=== PATIENT | male | born 1945 | race Caucasian/White ===

== ENCOUNTER 2017-05-17 08:55 | Emergency (ER) | payer MEDICAID, MEDICARE ==
[~2017-05-17] VITALS: Ht 180.3 cm; Wt 90.9 kg
[2017-05-17 08:55] VITALS: BP 121/74; PULSE 85; RESP 18; TEMP 98.4; O2SAT 98
[~2017-05-17 08:55] MED LIST: AMLO5 PO; LISI20 PO; NORC7.5T PO; POTA20IN3 PO
[2017-05-17] MEDS ORDERED: AMLO2.5T PO (08:59)
--- NOTE | 2017-05-17 09:24 | PD ---
HPI Chief Complaint: Pain: Acute or Chronic Time Seen by Provider: 09:02 Travel History International Travel<30 days: No Contact w/Intl Traveler<30days: No Traveled to known affect area: No History of Present Illness HPI This patient called paramedics to bring him in for back pain. He's had chronic back pain for 5 years. He's had an MRI told by his primary physician that is nothing much they can do but give him pain medicine. He takes hydrocodone 3 times a day for pain management physician. Patient reports that he drinks at least 6 alcoholic drinks daily and was drinking this morning prior to him calling 911. No fall or injury or fever. He reports that he gets around at home with a walker. He was in rehabilitation up to 7 months ago. He says he would refuse to go to assisted living or fpc or rehabilitation facility. Symptoms severity is moderate. No alleviating factors. Duration of pain is daily for 5 years. He denies any neurologic change. He spends a lot of time lying in bed. PFSH Past Medical History Arthritis: Yes Autoimmune Disease: No Anxiety: No Depression: No Cancer: No Cardiovascular Problems: Yes Cerebrovascular Accident: No Endocrine: No Hepatitis: No Hiatal Hernia: No Hypertension: Yes Immune Disorder: No Implanted Vascular Access Dvce: Yes Musculoskeletal: Yes (Arthritis ) Neurologic: Yes (TIA) Psychiatric: No Reproductive: No Respiratory: No Migraines: No Seizures: No Tetanus Vaccination: < 5 Years Influenza Vaccination: Yes Past Surgical History Abdominal Surgery: No AICD: No Cardiac Surgery: No Ear Surgery: No Endocrine Surgery: No Eye Surgery: No Genitourinary Surgery: No Gynecologic Surgery: No Joint Replacement: Yes (BL knees) Oral Surgery: No Pacemaker: No Thoracic Surgery: No Other Surgery: Yes (Lt. hip ) Social History Alcohol Use: Yes (Vodka daily, drank this morning) Tobacco Use: No Substance Use: No Allergies-Medications (Allergen,Severity, Reaction): Coded Allergies: No Known Allergies (Verified , 05/17/17) Reported Meds & Prescriptions Reported Meds & Active Scripts Active Reported Amlodipine (Amlodipine Besylate) 2.5 Mg Tab 2.5 Mg PO DAILY Review of Systems General / Constitutional: No: Fever Eyes: No: Visual changes HENT: No: Headaches Cardiovascular: Positive: Edema, No: Chest Pain or Discomfort Respiratory: No: Shortness of Breath Gastrointestinal: No: Abdominal Pain Genitourinary: No: Dysuria Musculoskeletal: Positive: Edema, Pain Skin: Positive Rash Neurologic: No: Weakness Psychiatric: Positive: Substance Abuse, No: Depression Endocrine: No: Polydipsia Hematologic/Lymphatic: No: Easy Bruising Physical Exam Narrative GENERAL: Disheveled well-developed patient in no apparent distress. SKIN: Focused skin assessment reveals macular erythema to the scrotum. Skin is Warm and dry. Has some macular erythema in the sacrum, I think irritation from lying in urine but possibly stage I decub HEAD: Atraumatic. Normocephalic. EYES: Pupils equal and round. No scleral icterus. No injection or drainage. ENT: No nasal bleeding or discharge. Mucous membranes pink and moist. NECK: Trachea midline. No JVD. CARDIOVASCULAR: Regular rate and rhythm. No murmur appreciated. RESPIRATORY: No accessory muscle use. Clear to auscultation. Breath sounds equal bilaterally. GASTROINTESTINAL: Abdomen soft, non-tender, nondistended. Hepatic and splenic margins not palpable. MUSCULOSKELETAL: No obvious deformities. No clubbing. No cyanosis. Symmetric edema the feet and lower legs. NEUROLOGICAL: Awake and alert. No obvious cranial nerve deficits. Motor grossly within normal limits. Normal speech. PSYCHIATRIC: Appropriate mood and affect; insight and judgment poor. Data Data Last Documented VS Vital Signs Date Time Temp Pulse Resp B/P Pulse Ox O2 Delivery O2 Flow Rate FiO2 05/17/17 08:55 98.4 85 18 121/74 98 Orders Iv Access Insert/Monitor (05/17/17 09:19) Complete Blood Count With Diff (05/17/17 09:19) Comprehensive Metabolic Panel (05/17/17 09:24) Alcohol (Ethanol) (05/17/17 09:24) Creatine Kinase (Cpk) (05/17/17 09:24) Labs Laboratory Tests Test 05/17/17 09:20 White Blood Count 13.3 TH/MM3 Red Blood Count 4.64 MIL/MM3 Hemoglobin 14.4 GM/DL Hematocrit 45.0 % Mean Corpuscular Volume 96.9 FL Mean Corpuscular Hemoglobin 31.1 PG Mean Corpuscular Hemoglobin 32.1 % Concent Red Cell Distribution Width 13.0 % Platelet Count 240 TH/MM3 Mean Platelet Volume 8.2 FL Neutrophils (%) (Auto) 77.9 % Lymphocytes (%) (Auto) 8.5 % Monocytes (%) (Auto) 9.6 % Eosinophils (%) (Auto) 0.7 % Basophils (%) (Auto) 3.3 % Neutrophils # (Auto) 10.4 TH/MM3 Lymphocytes # (Auto) 1.1 TH/MM3 Monocytes # (Auto) 1.3 TH/MM3 Eosinophils # (Auto) 0.1 TH/MM3 Basophils # (Auto) 0.4 TH/MM3 CBC Comment AUTO DIFF Differential Comment AUTO DIFF CONFIRMED Sodium Level 130 MEQ/L Potassium Level 3.2 MEQ/L Chloride Level 91 MEQ/L Carbon Dioxide Level 21.2 MEQ/L Anion Gap 18 MEQ/L Blood Urea Nitrogen 26 MG/DL Creatinine 1.10 MG/DL Estimat Glomerular Filtration 65 ML/MIN Rate Random Glucose 92 MG/DL Calcium Level 9.1 MG/DL Total Bilirubin 2.0 MG/DL Aspartate Amino Transf 35 U/L (AST/SGOT) Alanine Aminotransferase 32 U/L (ALT/SGPT) Alkaline Phosphatase 101 U/L Total Creatine Kinase 189 U/L Total Protein 7.8 GM/DL Albumin 3.1 GM/DL Ethyl Alcohol Level 90 MG/DL [facility] Medical Decision Making Medical Screen Exam Complete: Yes Emergency Medical Condition: Yes Medical Record Reviewed: Yes Differential Diagnosis Rhabdomyolysis, alcoholism, exacerbation of chronic back pain Narrative Course I have reviewed the patient's electronic medical record. IV placed CBC shows minor leukocytosis which is nonspecific Metabolic profile shows some hyponatremia and hypokalemia. Creatinine is normal LFTs are normal other than bilirubin minor elevation Alcohol level is 90 suggesting acute intoxication Patient does not have any neurologic deficit. He's had this level of back pain for 5 years now and had an MRI and sees a physician but can't recall his primary physician's name. Patient abuses alcohol daily. He refuses placement. I observed him ambulate in the department with a walker and he did fairly well Wrote him a nystatin prescription for his scrotum and discussed how he needs to be up and out of bed and keep pressure off the sacrum hygiene measures discussed As noted he refuses any discussion of placement Follow-up with his primary physician and quit his alcohol abuse Diagnosis Primary Impression: Acute exacerbation of chronic low back pain Additional Impressions: Alcohol intoxication Qualified Code: F10.920 - Alcohol intoxication, uncomplicated Hypokalemia Rash Additional Instructions: The patient was advised to follow up with their physician and return if they worsen. Elevate legs Use walker at all times Stop abusing alcohol Med/Other Pt SpecificInfo: Prescription(s) given Scripts Potassium Chloride ER (K-Tab)20 Meq Tab40 Meq PO ONCE #2 TAB Ref 0 Prov:Preston Kramer MD 05/17/17 Nystatin Topical 100,000 unit/gm Cream1 Applic TOPICAL BID #30 GM Ref 0 Prov:Preston Kramer MD 05/17/17 Disposition: 01 DISCHARGE HOME Condition: Stable Preston Kramer MD May 17, 2017 09:24
[2017-05-17 09:31] LABS: AUTOMATED NEUTROPHIL # 10.4 TH/MM3 (1.8-7.7); BASOPHIL # 0.4 TH/MM3 (0-0.2); BASOPHIL % 3.3 % (0.0-2.0); EOSINOPHIL # 0.1 TH/MM3 (0-0.4); EOSINOPHIL % 0.7 % (0.0-4.0); HEMO FLAGS AUTO DIFF; LYMPH % 8.5 % (9.0-44.0); LYMPHOCYTE # 1.1 TH/MM3 (1.0-4.8); MEAN CELL VOLUME 96.9 FL (80.0-100.0); MEAN CORPUSCULAR HEMOGLOBIN 31.1 PG (27.0-34.0); MEAN CORPUSCULAR HGB CONC 32.1 % (32.0-36.0); MONO % 9.6 % (0.0-8.0); NEUT % 77.9 % (16.0-70.0); PLATELET COUNT 240 TH/MM3 (150-450); RED BLOOD COUNT 4.64 MIL/MM3 (4.50-5.90); WHITE BLOOD COUNT 13.3 TH/MM3 (4.0-11.0)
[2017-05-17 09:51] LABS: SCAN/DIFF AUTO DIFF CONFIRMED
[2017-05-17 09:56] LABS: CHLORIDE 91 MEQ/L (98-107); POTASSIUM 3.2 MEQ/L (3.5-5.1); SODIUM (NA) 130 MEQ/L (136-145)
[2017-05-17 09:57] LABS: ALT (GPT) 32 U/L (12-78)
[2017-05-17 09:58] LABS: AST (GOT) 35 U/L (15-37); GLOMERULAR FILTRATION RATE 65 ML/MIN (>89)
[2017-05-17 10:00] LABS: ALKALINE PHOSPHATASE 101 U/L (45-117); CREATINE KINASE 189 U/L (39-308)
[2017-05-17 10:02] LABS: ANION GAP 18 MEQ/L (5-15); BICARBONATE 21.2 MEQ/L (21.0-32.0); BLOOD UREA NITROGEN 26 MG/DL (7-18)
[2017-05-17] MEDS ORDERED: NYST15T TOPICAL (10:51)
[2017-05-17] MEDS ORDERED: POTA1TAB4 PO (10:51)
[2017-05-17 11:05] VITALS: BP 121/79; PULSE 78; RESP 16; O2SAT 98
== END 2017-05-17 11:55 | disposition home or self-care (01) ==
LOC: PHED 08:55
DX: M54.5 Low back pain (principal); G89.29 Other chronic pain; E87.6 Hypokalemia; R21 Rash and other nonspecific skin eruption; I10 Essential (primary) hypertension; F10.120 Alcohol abuse with intoxication, uncomplicated; Y90.4 Blood alcohol level of 80-99 mg/100 ml
CPT/HCPCS: 80053; 80307; 82550; 85025; 99283

== ENCOUNTER 2017-07-28 18:47 | Inpatient (IN) | payer MEDICARE, MEDICAID ==
[~2017-07-28] VITALS: Ht 180.3 cm; Wt 93.1 kg
[~2017-07-28 18:47] MED LIST changes: +AMLO2.5T PO; -AMLO5 PO; -LISI20 PO; -NORC7.5T PO; +NYST15T TOPICAL; +POTA1TAB4 PO; -POTA20IN3 PO
[2017-07-28 18:59] VITALS: BP 160/84; PULSE 119; RESP 18; TEMP 100.7; O2SAT 95
[2017-07-28] MEDS ORDERED: VANCOMYCIN INJ 1,000 MG in SODIUM CHLOR 0.9% 250 ML INJ 250 ML IV STA (19:11)
[2017-07-28] MEDS ORDERED: CEFEPIME INJ 2,000 MG in SODIUM CHLORIDE 0.9% INJ 100 ML IV STA (19:11)
[2017-07-28] MEDS ORDERED: ACETAMINOPHEN 325 MG TAB PO ONE (19:15)
[2017-07-28] MEDS ORDERED: SODIUM CHLOR 0.9% 1000 ML INJ 1,000 ML IV ONE (19:15)
--- NOTE | 2017-07-28 19:21 | PD ---
HPI Chief Complaint: Edema Time Seen by Provider: 19:05 Travel History International Travel<30 days: No Contact w/Intl Traveler<30days: No Traveled to known affect area: No History of Present Illness HPI Patient is a 72 year old male who presents to ER with multiple complaints. Patient reports that for the past 2-3 days, he has not been feeling well. Reports that he has had a productive cough with thick white mucous. Reports that his legs appear swollen. Reports that his girlfriend is sick as well. Denies chest pain/sob. NO documented fever at home. Denies abdominal pain/ nausea or vomiting. Reports only history of HTN. PFSH Past Medical History Arthritis: Yes Autoimmune Disease: No Anxiety: No Depression: No Cancer: No Cardiovascular Problems: Yes Cerebrovascular Accident: Yes (tia) Endocrine: No GERD: Yes Hepatitis: No Hiatal Hernia: No Hypertension: Yes Immune Disorder: No Implanted Vascular Access Dvce: Yes Medical other: Yes (poor historian) Musculoskeletal: Yes (Arthritis ) Neurologic: Yes (TIA) Psychiatric: No Reproductive: No Respiratory: No Migraines: No Pancreatitis: Yes Seizures: No Past Surgical History Abdominal Surgery: No AICD: No Cardiac Surgery: No Ear Surgery: No Endocrine Surgery: No Eye Surgery: No Genitourinary Surgery: No Gynecologic Surgery: No Joint Replacement: Yes (BL knees) Oral Surgery: No Pacemaker: No Thoracic Surgery: No Other Surgery: Yes (Lt. hip ) Social History Alcohol Use: Yes (Vodka daily) Tobacco Use: No Substance Use: Yes (etoh) Allergies-Medications (Allergen,Severity, Reaction): Coded Allergies: No Known Allergies (Verified , 07/28/17) Reported Meds & Prescriptions Reported Meds & Active Scripts Active Reported Amlodipine (Amlodipine Besylate) 2.5 Mg Tab 2.5 Mg PO DAILY Review of Systems ROS Limitations: Altered Mental Status General / Constitutional: Positive: Fever Respiratory: Positive: Cough, Shortness of Breath Physical Exam Narrative GENERAL:moderate distress SKIN: Focused skin assessment warm/dry. HEAD: Atraumatic. Normocephalic. EYES: Pupils equal and round. No scleral icterus. No injection or drainage. ENT: No nasal bleeding or discharge. Mucous membranes pink and moist. NECK: Trachea midline. No JVD. CARDIOVASCULAR: Tachycardic. No murmur appreciated. RESPIRATORY: No accessory muscle use. Clear to auscultation. Breath sounds equal bilaterally. GASTROINTESTINAL: Abdomen soft, non-tender, nondistended. Hepatic and splenic margins not palpable. MUSCULOSKELETAL: No obvious deformities. No clubbing. No cyanosis. +3 lower extremity edema to right lower extremity, +1 lower extremity edema to her left lower extremity NEUROLOGICAL: Awake and alert. No obvious cranial nerve deficits. Motor grossly within normal limits. Normal speech. PSYCHIATRIC: Flat mood and affect Data Data Last Documented VS Vital Signs Date Time Temp Pulse Resp B/P (MAP) Pulse Ox O2 Delivery O2 Flow Rate FiO2 07/28/17 18:59 100.7 119 18 160/84 (109) 95 Orders Orders Complete Blood Count With Diff (07/28/17 19:11) Comprehensive Metabolic Panel (07/28/17 19:11) Prothrombin Time / Inr (Pt) (07/28/17 19:11) Act Partial Throm Time (Ptt) (07/28/17 19:11) Lactic Acid Sepsis Protocol (07/28/17 19:11) Magnesium (Mg) (07/28/17 19:11) Ckmb (Isoenzyme) Profile (07/28/17 19:11) Troponin I (07/28/17 19:11) Urinalysis - C+S If Indicated (07/28/17 19:11) Influenzae A/B Antigen (07/28/17 19:11) Blood Culture (07/28/17 19:11) Chest, Single Ap (07/28/17 19:11) Blood Glucose (07/28/17 19:11) Ecg Monitoring (07/28/17 19:11) Iv Access Insert/Monitor (07/28/17 19:11) Oximetry (07/28/17 19:11) Acetaminophen (Tylenol) (07/28/17 19:15) Vancomycin Inj (Vancomycin Inj) (07/28/17 19:11) Cefepime Inj (Maxipime Inj) (07/28/17 19:11) Sodium Chlor 0.9% 1000 Ml Inj (Ns 1000 M (07/28/17 19:15) Us Leg Venous Doppler Bilat (07/28/17 ) Labs Laboratory Tests Test 07/28/17 19:40 07/28/17 19:45 Prothrombin Time 11.9 SEC Prothromb Time International Ratio 1.1 RATIO Activated Partial Thromboplast Time 28.9 SEC Blood Urea Nitrogen 14 MG/DL Creatinine 1.15 MG/DL Random Glucose 119 MG/DL Total Protein 7.8 GM/DL Albumin 2.9 GM/DL Calcium Level 8.6 MG/DL Magnesium Level 1.5 MG/DL Alkaline Phosphatase 123 U/L Aspartate Amino Transf (AST/SGOT) 20 U/L Alanine Aminotransferase (ALT/SGPT) 20 U/L Total Bilirubin 2.2 MG/DL Sodium Level 135 MEQ/L Potassium Level 3.3 MEQ/L Chloride Level 102 MEQ/L Carbon Dioxide Level 20.9 MEQ/L Anion Gap 12 MEQ/L Estimat Glomerular Filtration Rate 62 ML/MIN Total Creatine Kinase 74 U/L Troponin I LESS THAN 0.02 NG/ML White Blood Count 18.9 TH/MM3 Red Blood Count 4.13 MIL/MM3 Hemoglobin 14.0 GM/DL Hematocrit 41.6 % Mean Corpuscular Volume 100.8 FL Mean Corpuscular Hemoglobin 34.0 PG Mean Corpuscular Hemoglobin Concent 33.7 % Red Cell Distribution Width 17.1 % Platelet Count 236 TH/MM3 Mean Platelet Volume 9.4 FL Neutrophils (%) (Auto) 91.0 % Lymphocytes (%) (Auto) 2.7 % Monocytes (%) (Auto) 6.2 % Eosinophils (%) (Auto) 0.0 % Basophils (%) (Auto) 0.1 % Neutrophils # (Auto) 17.2 TH/MM3 Lymphocytes # (Auto) 0.5 TH/MM3 Monocytes # (Auto) 1.2 TH/MM3 Eosinophils # (Auto) 0.0 TH/MM3 Basophils # (Auto) 0.0 TH/MM3 CBC Comment DIFF FINAL Differential Comment Lactic Acid Level 2.0 mmol/L [facility] Medical Decision Making Medical Screen Exam Complete: Yes Emergency Medical Condition: Yes Medical Record Reviewed: Yes Interpretation(s) Vital Signs Date Time Temp Pulse Resp B/P (MAP) Pulse Ox O2 Delivery O2 Flow Rate FiO2 07/28/17 18:59 100.7 119 18 160/84 (109) 95 Differential Diagnosis Differential includes pneumonia, SIRS, PE DVT, ACS, arrythmia, UTI, electrolyte abnormality Narrative Course Patient is a 72-year-old male who presents to emergency room with complaints of cough and congestion as well as swelling to his lower extremities bilaterally for the past 2-3 days. Patient reports only history of hypertension currently taking amlodipine. Patient appears confused at bedside, he is alert to person. He is tachycardic and febrile. Sepsis protocol initiated. Patient was given acetaminophen for fever. Cefepime and Vanco was given empirically for SIRS criteria - Sepsis. Patient was placed on a ekg monitor tech. IVF ordered. BC as well as lactate ordered. CBC & BMP Diagram 07/28/17 19:40 Total Protein 7.8, Albumin 2.9 L, Calcium Level 8.6, Magnesium Level 1.5, Alkaline Phosphatase 123 H, Aspartate Amino Transf (AST/SGOT) 20, Alanine Aminotransferase (ALT/SGPT) 20, Total Bilirubin 2.2 H 07/28/17 19:45 Lactic acid 2.0 X-ray of his chest shows left base atelectasis or consolidation. Patient with a white blood cell count of 18.9 with a left base consolidation, he is also tachycardic with a temperature of 100.7. Patient with sepsis criteria. Patient will require admission to the hospital this time for treatment of pneumonia. Diagnosis Primary Impression: Sepsis Qualified Codes: A41.9 - Sepsis, unspecified organism Additional Impression: Pneumonia Qualified Codes: J18.9 - Pneumonia, unspecified organism Admitting Information Admitting Physician Requests: Admit Anna Rodas DO Jul 28, 2017 19:21
[2017-07-28 20:07] LABS: AUTOMATED NEUTROPHIL # 17.2 TH/MM3 (1.8-7.7); BASOPHIL % 0.1 % (0.0-2.0); HEMATOCRIT 41.6 % (39.0-51.0); HEMO FLAGS DIFF FINAL; LYMPH % 2.7 % (9.0-44.0); LYMPHOCYTE # 0.5 TH/MM3 (1.0-4.8); MEAN CELL VOLUME 100.8 FL (80.0-100.0); MEAN CORPUSCULAR HGB CONC 33.7 % (32.0-36.0); MONO % 6.2 % (0.0-8.0); PLATELET COUNT 236 TH/MM3 (150-450); RED BLOOD COUNT 4.13 MIL/MM3 (4.50-5.90); RED CELL DISTRIBUTION WIDTH 17.1 % (11.6-17.2); WHITE BLOOD COUNT 18.9 TH/MM3 (4.0-11.0)
[2017-07-28 20:16] LABS: APTT (PATIENT) 28.9 SEC (24.3-30.1); INTERNATIONAL NORMALIZED RATIO 1.1 RATIO; PROTHROMBIN TIME - PATIENT 11.9 SEC (9.8-11.6)
[2017-07-28 20:27] LABS: ANION GAP 12 MEQ/L (5-15); AST (GOT) 20 U/L (15-37); BICARBONATE 20.9 MEQ/L (21.0-32.0); BLOOD UREA NITROGEN 14 MG/DL (7-18); CHLORIDE 102 MEQ/L (98-107); GLOMERULAR FILTRATION RATE 62 ML/MIN (>89); MAGNESIUM 1.5 MG/DL (1.5-2.5); POTASSIUM 3.3 MEQ/L (3.5-5.1); SODIUM (NA) 135 MEQ/L (136-145)
--- NOTE | 2017-07-28 20:30 | RADRPT ---
EXAM DATE/TIME: 07/28/2017 19:14 [facility] COMPARISON: No previous studies available for comparison. INDICATIONS : Bilateral leg swelling. MEDICAL HISTORY : Hypertension. Gastroesophageal reflux disease. Neck pain. Glasses. Hearing problem. Transient ischem ic attack. Numbness. Pancreatitis. Arthritis. SURGICAL HISTORY : Total knee replacement, right.Total knee replacement, left. Left hip replacement. ENCOUNTER: Initial ACUITY: 1 day PAIN SCORE: 2/10 LOCATION: Bilateral legs. TECHNIQUE: Venous ultrasound of the left and right leg was performed from the inguinal ligament to the proximal calf. Real-time, color Doppler and spectral tracing, compression and augmentation techniques were us ed. FINDINGS: RIGHT LEG: There is normal compressibility of the deep venous system from the inguinal region to the proximal ca lf. No echogenic clot is seen in the lumen of the common femoral, femoral, popliteal, and posterior tibial veins. There is a normal response of the venous system to proximal and distal augmentation an d respiration. LEFT LEG: There is normal compressibility of the deep venous system from the inguinal region to the proximal ca lf. No echogenic clot is seen in the lumen of the common femoral, femoral, popliteal, and posterior tibial veins. There is a normal response of the venous system to proximal and distal augmentation an d respiration. CONCLUSION: No DVT. Franki Eldridge MD on July 28, 2017 at 20:28 Board Certified Radiologist. This report was verified electronically.
[2017-07-28 20:34] LABS: ALKALINE PHOSPHATASE 123 U/L (45-117); ALT (GPT) 20 U/L (12-78); TOTAL BILIRUBIN ADULT 2.2 MG/DL (0.2-1.0)
[2017-07-28 20:42] LABS: CREATINE KINASE 74 U/L (39-308)
--- NOTE | 2017-07-28 21:03 | RADRPT ---
EXAM DATE/TIME: 07/28/2017 19:54 [facility] COMPARISON: CHEST SINGLE AP, August 26, 2015, 18:43. CHEST SINGLE AP, March 24, 2016, 18:56. INDICATIONS : Cough and congestion. MEDICAL HISTORY : None. SURGICAL HISTORY : None. ENCOUNTER: Initial ACUITY: 4 - 6 days PAIN SCORE: 0/10 LOCATION: chest FINDINGS: The heart size is normal. There is increased density at the left base. There is a focal density in th e right perihilar region likely related to a prominent vessel on end. The right lung is clear. No eff usion is seen. CONCLUSION: 1. Left base atelectasis or consolidation. 2. Nodular areas seen at the inferior lateral right hilar region likely related to a vessel on end. T his could be followed up on future chest x-rays. If this persists, it could be followed up with a CT examination. Franki Eldridge MD on July 28, 2017 at 20:59 Board Certified Radiologist. This report was verified electronically.
[2017-07-28] MEDS ORDERED: POTASSIUM CHLORIDE 10 MEQ CONTROLLED RELEASE TAB PO ONE (22:00)
[2017-07-28] MEDS ORDERED: NALOXONE HCL 0.4 MG/ML AMP IV PUSH PRN (22:30)
[2017-07-28] MEDS ORDERED: SODIUM CHLORIDE 0.9% FLUSH 10 ML FLUSH IV FLUSH PRN (22:30)
--- NOTE | 2017-07-28 23:05 | HHI.HP ---
[facility] Dr. Kyrie Huff . Admission Diagnosis Sepsis, pneumonia Diagnoses: (1) Pneumonia Chief Complaint: cough with mucous production Travel History International Travel<30 Days: No Contact w/Intl Traveler <30 Da: No Traveled to Known Affected Are: No History of Present Illness Written by Amanda Saldana, acting as scribe for Dr. Boyer on 07/28/17 at 23:04. Patient is seen in ED. He states that he came to the hospital for evaluation of productive cough x 3 days with yellow sputum - large amount of sputum production. Reports fever, denies shortness of breath. Denies chest pain or tightness. Denies dysphagia. Reports difficulty eating and taking pills because his throat is full of phlegm ; no problems swallowing prior to excessive mucous production Peripheral edema: chronic with no recent in crease in edema. Denies abdominal pain, diarrhea, nausea, vomiting, dysuria, hematuria, black or bloody stool. During visit, the patient was coughing up and expectorating a large amount of yellow sputum and his upper airway sounded congested. Review of Systems Except as stated in HPI: all other systems reviewed are Neg Past Family Social History Past Medical History Hypertension CVA Denies DM, CAD, CHF, atrial fibrillation, COPD, emphysema, asthma, liver problems, kidney problems, DVT, PE, seizures, thyroid problems, or cancers . Past Surgical History Carotid endarterectomy Bilateral knee replacement Left hip replacement . Reported Medications Reported Meds & Active Scripts Active Reported Amlodipine (Amlodipine Besylate) 2.5 Mg Tab 2.5 Mg PO DAILY . Allergies: Coded Allergies: No Known Allergies (Verified , 07/28/17) Active Ordered Medications Current Medications Acetaminophen (Tylenol) 650 mg ONCE ONCE PO Last administered on 07/28/17 20: 41; Start 07/28/17 at 19:15; Stop 07/28/17 at 19:16; Status DC Vancomycin HCl 1000 mg/Sodium Chloride 250 ml @ 250 mls/hr ONCE STAT IV Last administered on 07/28/17 20:41; Start 07/28/17 at 19:11; Stop 07/28/17 at 20:10 ; Status DC Cefepime HCl 2000 mg/Sodium Chloride 100 ml @ 200 mls/hr ONCE STAT IV Last administered on 07/28/17 22:17; Start 07/28/17 at 19:11; Stop 07/28/17 at 19:40 ; Status DC Sodium Chloride 1,000 ml @ 999 mls/hr BOLUS ONCE IV Last administered on 07/28 20:41; Start 07/28/17 at 19:15; Stop 07/28/17 at 20:15; Status DC Potassium Chloride (KCl) 30 meq ONCE ONCE PO Last administered on 07/28/17 22 :18; Start 07/28/17 at 22:00; Stop 07/28/17 at 22:01; Status DC Sodium Chloride (NS Flush) 2 ml UNSCH PRN IV FLUSH FLUSH AFTER USING IV ACCESS ; Start 07/28/17 at 22:30 Sodium Chloride (NS Flush) 2 ml BID IV FLUSH ; Start 07/29/17 at 09:00 Naloxone HCl (Narcan Inj) 0.4 mg UNSCH PRN IV PUSH SEE LABEL COMMENTS; Start 07/28/17 at 22:30 . Family History Mother with hypertension Father is alive in his 90's . Social History Tobacco: quit smoking about one year ago Alcohol: drinks 3 - 4 shots of vodka per day Illicit Drugs: denies . Physical Exam Vital Signs Vital Signs Date Time Temp Pulse Resp B/P (MAP) Pulse Ox O2 Delivery O2 Flow Rate FiO2 07/28/17 18:59 100.7 119 18 160/84 (109) 95 Physical Exam GENERAL: This is an elderly male patient, coughing up excessive amounts of yellow mucous throughout visit. SKIN: No rashes, ecchymoses or lesions. Cool and dry. HEAD: Atraumatic. Normocephalic. EYES: No scleral icterus. No injection or drainage. ENT: Nose without bleeding, purulent drainage. Airway patent but excessive mucous production noted during visit; throat with congested sound. NECK: Trachea midline. No JVD. Supple, nontender, no meningeal signs. CARDIOVASCULAR: Regular rate and rhythm without murmurs, gallops, or rubs. Bilateral lower extremity edema - 2+ without erythema. RESPIRATORY: Breath sounds congested bilaterally. No wheezes or rhonchi. GASTROINTESTINAL: Abdomen soft, non-tender, nondistended. No guarding. MUSCULOSKELETAL: Extremities without clubbing, cyanosis. No calf tenderness. NEUROLOGICAL: Awake and alert. Motor and sensory grossly within normal limits. Normal speech. . Laboratory Laboratory Tests Test 07/28/17 19:40 07/28/17 19:45 07/28/17 22:00 Prothrombin Time 11.9 Prothromb Time International Ratio 1.1 Activated Partial Thromboplast Time 28.9 Blood Urea Nitrogen 14 Creatinine 1.15 Random Glucose 119 Total Protein 7.8 Albumin 2.9 Calcium Level 8.6 Magnesium Level 1.5 Alkaline Phosphatase 123 Aspartate Amino Transf (AST/SGOT) 20 Alanine Aminotransferase (ALT/SGPT) 20 Total Bilirubin 2.2 Sodium Level 135 Potassium Level 3.3 Chloride Level 102 Carbon Dioxide Level 20.9 Anion Gap 12 Estimat Glomerular Filtration Rate 62 Total Creatine Kinase 74 Troponin I LESS THAN 0.02 White Blood Count 18.9 Red Blood Count 4.13 Hemoglobin 14.0 Hematocrit 41.6 Mean Corpuscular Volume 100.8 Mean Corpuscular Hemoglobin 34.0 Mean Corpuscular Hemoglobin Concent 33.7 Red Cell Distribution Width 17.1 Platelet Count 236 Mean Platelet Volume 9.4 Neutrophils (%) (Auto) 91.0 Lymphocytes (%) (Auto) 2.7 Monocytes (%) (Auto) 6.2 Eosinophils (%) (Auto) 0.0 Basophils (%) (Auto) 0.1 Neutrophils # (Auto) 17.2 Lymphocytes # (Auto) 0.5 Monocytes # (Auto) 1.2 Eosinophils # (Auto) 0.0 Basophils # (Auto) 0.0 CBC Comment DIFF FINAL Differential Comment Lactic Acid Level 2.0 1.9 Date/Time Source Procedure Growth Status 07/28/17 19:45 Blood Peripheral Aerobic Blood Culture Pending Received 07/28/17 19:45 Blood Peripheral Anaerobic Blood Culture Pending Received Result Diagram: 07/28/17194407/28/171939 Imaging negative bilateral lower extremity Doppler CXR with left base atelectasis or consolidation . Caprini VTE Risk Assessment Caprini VTE Risk Assessment: Mod/High Risk (score >= 2) Caprini Risk Assessment Model Point Value = 1 Point Value = 2 Point Value = 3 Point Value = 5 Age 41-60 Minor surgery BMI > 25 kg/m2 Swollen legs Varicose veins or History of unexplained or recurrent spontaneous Oral contraceptives or hormone replacement Sepsis (< 1 month) Serious lung disease, including pneumonia (< 1 month) Abnormal pulmonary function Acute myocardial infarction Congestive heart failure (< 1 month) History of inflammatory bowel disease Medical patient at bed rest Age 61-74 Arthroscopic surgery Major open surgery (> 45 min) Laparoscopic surgery (> 45 min) Malignancy Confined to bed (> 72 hours) Immobilizing plaster cast Central venous access Age >= 75 History of VTE Family history of VTE Factor V Leiden Prothrombin [id number] Lupus anticoagulant Anticardiolipin antibodies Elevated serum homocysteine Heparin-induced thrombocytopenia Other congenital or acquired thrombophilia Stroke (< 1 month) Elective arthroplasty Hip, pelvis, or leg fracture Acute spinal cord injury (< 1 month) Prophylaxis Regimen Total Risk Factor Score Risk Level Prophylaxis Regimen 0-1 Low Early ambulation 2 Moderate Order ONE of the following: *Sequential Compression Device (SCD) *Heparin 5000 units SQ BID 3-4 Higher Order ONE of the following medications: *Heparin 5000 units SQ TID *Enoxaparin/Lovenox 40 mg SQ daily (WT < 150 kg, CrCl > 30 mL/min) *Enoxaparin/Lovenox 30 mg SQ daily (WT < 150 kg, CrCl > 10-29 mL/min) *Enoxaparin/Lovenox 30 mg SQ BID (WT < 150 kg, CrCl > 30 mL/min) AND/OR *Sequential Compression Device (SCD) 5 or more Highest Order ONE of the following medications: *Heparin 5000 units SQ TID (Preferred with Epidurals) *Enoxaparin/Lovenox 40 mg SQ daily (WT < 150 kg, CrCl > 30 mL/min) *Enoxaparin/Lovenox 30 mg SQ daily (WT < 150 kg, CrCl > 10-29 mL/min) *Enoxaparin/Lovenox 30 mg SQ BID (WT < 150 kg, CrCl > 30 mL/min) AND *Sequential Compression Device (SCD) Assessment and Plan Problem List: (1) Pneumonia ICD Code: J18.9 - Pneumonia, unspecified organism Status: Acute (2) Leukocytosis ICD Code: D72.829 - Elevated white blood cell count, unspecified Status: Acute (3) Hypokalemia ICD Code: E87.6 - Hypokalemia Status: Acute (4) Hyponatremia ICD Code: E87.1 - Hypo-osmolality and hyponatremia (5) Hypertension ICD Code: I10 - Essential (primary) hypertension Status: Chronic Assessment and Plan 72 y/o male with history of hypertension and CVA who presented to ED complaining productive cough: Pneumonia Suspect bronchiectasis - Left base consolidation vs atelectasis on chest x-ray - will check CT of chest given copious quantity of expectorated mucous throughout visit - obtain sputum culture - Antibiotics: Levaquin 750 mg IV q24h - Duonebulizers q6h scheduled and q2h PRN SOB/wheezing Leukocytosis secondary to bilateral pneumonia - WBC 18.9 with neutrophilia - repeat CBC in a.m. and follow results Hypokalemia - Potassium 3.3 on admission - orally replaced - recheck bmp in a.m. and follow K+ results Hyponatremia, mild - Na+ 135 on admission - NS bolus given in ED Hypertension - resume home medications - monitor trends in blood pressure and adjust medications accordingly DVT prophylaxis - Lovenox 40 mg subq q24h . This note was transcribed by joseph [Amanda Saldana]. I, Dr. Kate Boyer personally performed the history, physical exam, and medical decision making; and confirmed the accuracy of the information in the transcribed note. Authenticated by Dr. Kate Boyer on 07/28/17 at 23:04. Discussed Condition With ER physician and patient . Physician Certification 2 Midnight Certification Type: Admission for Inpatient Services Order for Inpatient Services The services are ordered in accordance with Medicare regulations or non- Medicare payer requirements, as applicable. In the case of services not specified as inpatient-only, they are appropriately provided as inpatient services in accordance with the 2-midnight benchmark. Estimated LOS (days): 3 days is the estimated time the patient will need to remain in the hospital, assuming treatment plan goals are met and no additional complications. Post-Hospital Plan: Not yet determined Problem Qualifiers (1) Pneumonia: Qualified Codes: J18.9 - Pneumonia, unspecified organism (2) Leukocytosis: Qualified Codes: D72.829 - Elevated white blood cell count, unspecified Amanda Saldana Jul 28, 2017 23:04 Kate Boyer MD Aug 03, 2017 23:33
--- NOTE | 2017-07-28 23:59 | RADRPT ---
EXAM DATE/TIME: 07/28/2017 23:40 [facility] COMPARISON: No previous studies available for comparison. INDICATIONS : Cough and congestion. Evaluate for pneumonia. RADIATION DOSE: 8.37 CTDIvol (mGy) MEDICAL HISTORY : Hypertension. CVA. SURGICAL HISTORY : None. ENCOUNTER: Initial ACUITY: 3 days PAIN SCALE: 0/10 LOCATION: Bilateral chest TECHNIQUE: Volumetric scanning of the chest was performed. Using automated exposure control and adjustment of t he mA and/or kV according to patient size, radiation dose was kept as low as reasonably achievable to obtain optimal diagnostic quality images. DICOM format image data is available electronically for r eview and comparison. Follow-up recommendations for detected pulmonary nodules are based at a minimum on nodule size and pa tient risk factors according to Fleischner Society Guidelines. FINDINGS: Focally dense infiltrates seen in the left lower lobe. More patchy airspace consolidation seen of the right lung base that involves both the lower lobe and middle lobe. Patient has mild emphysema. No pl eural effusion. No pneumothorax. Normal heart size. Right and left side coronary artery calcification noted. No lymphadenopathy. Upper abdomen only partly included on this study. Cortical thinning/scarring seen of both kidneys, es pecially on the left. A 17 mm left upper pole cyst is also noted. CONCLUSION: 1. Left greater than right bibasilar pneumonia. 2. Coronary artery calcification. Franki Moreno MD on July 28, 2017 at 23:55 Board Certified Radiologist. This report was verified electronically.
[2017-07-29] VITALS (9 sets, daily range): BP systolic 135–151; BP diastolic 70–85; PULSE 89–107; RESP 18–21; TEMP 97–99.6; O2SAT 94–96
[2017-07-29 01:49] LABS: BLOOD, URINE NEG (NEG); GLUCOSE,URINE NEG (NEG); KETONE, URINE 40 mg/dL (NEG); NITRITE,URINE NEG (NEG); SQUAMOUS EPITHELIAL CELL URINE <1 /hpf (0-5); URINE COLOR YELLOW (YELLW/STRAW)
[2017-07-29 01:50] LABS: COMMENT (UR) CATH-CULT NOT IND; CULTURE IF INDICATED CATH CULTURE NOT IND
[2017-07-29] MEDS ORDERED: RESP: ALBUTEROL 2.5 MG/IPRATROPIUM 0.5 MG NEB (PRN) NEB (02:00)
[2017-07-29] MEDS ORDERED: LEVOFLOXACIN 750 MG PREMIX INJ 150 ML IV SCH (02:00)
[2017-07-29] MEDS: RESP: ALBUTEROL 2.5 MG/IPRATROPIUM 0.5 MG NEB (SCH) NEB ×4 (04:29→21:20)
[2017-07-29 08:51] LABS: AUTOMATED NEUTROPHIL # 15.7 TH/MM3 (1.8-7.7); BASOPHIL % 0.3 % (0.0-2.0); EOSINOPHIL % 0.1 % (0.0-4.0); HEMATOCRIT 39.7 % (39.0-51.0); HEMO FLAGS DIFF FINAL; LYMPH % 5.2 % (9.0-44.0); LYMPHOCYTE # 0.9 TH/MM3 (1.0-4.8); MEAN CORPUSCULAR HEMOGLOBIN 34.2 PG (27.0-34.0); MEAN CORPUSCULAR HGB CONC 33.9 % (32.0-36.0); MONO % 6.9 % (0.0-8.0); NEUT % 87.5 % (16.0-70.0); PLATELET COUNT 205 TH/MM3 (150-450); RED BLOOD COUNT 3.93 MIL/MM3 (4.50-5.90); RED CELL DISTRIBUTION WIDTH 16.9 % (11.6-17.2); WHITE BLOOD COUNT 17.9 TH/MM3 (4.0-11.0)
--- NOTE | 2017-07-29 08:52 | HHI.PR ---
Subjective Remarks with mild sob and productive cough of yellowish sputum. T max 100.7. d/w the RN and there's a concern about possible dysphagia. Objective Vitals Vital Signs Date Time Temp Pulse Resp B/P (MAP) Pulse Ox O2 Delivery O2 Flow Rate FiO2 07/29/17 07:56 98.8 95 18 136/81 (99) 95 07/29/17 06:00 98.3 89 21 135/70 (91) 94 07/29/17 04:00 Room Air 07/29/17 00:33 18 96 Room Air 07/29/17 00:32 Room Air 07/29/17 00:30 101 07/29/17 00:30 98.0 99 21 138/70 (92) 94 07/28/17 18:59 100.7 119 18 160/84 (109) 95 I/O 07/28/17 07/28/17 07/28/17 07/29/17 07/29/17 07/29/17 07:00 15:00 23:00 07:00 15:00 23:00 Intake Total 1350 ml 150 ml Output Total 500 ml Balance 1350 ml -350 ml Intake Oral 0 ml IV Total 1350 ml 150 ml Output Urine Total 500 ml # Bowel Movements 0 Result Diagram: 07/28/17194407/28/171939 Imaging Last Impressions Chest X-Ray 07/28/171910 Signed Impressions: Service Date/Time: Friday, July 28, 2017 19:54 - CONCLUSION: 1. Left base atelectasis or consolidation. 2. Nodular areas seen at the inferior lateral right hilar region likely related to a vessel on end. This could be followed up on future chest x-rays. If this persists, it could be followed up with a CT examination. Franki Eldridge MD Lower Extremity Ultrasound 07/28/17 0000 Signed Impressions: Service Date/Time: Friday, July 28, 2017 19:14 - CONCLUSION: No DVT. Franki Eldridge MD Objective Remarks GENERAL: with mild sob and some cough CARDIOVASCULAR: Regular rate and regular rhythm without murmurs, gallops, or rubs. RESPIRATORY: Clear to auscultation. Breath sounds equal bilaterally. No wheezes , rales, or rhonchi. GASTROINTESTINAL: Abdomen soft, non-tender, nondistended. Normal, active bowel sounds MUSCULOSKELETAL: Extremities without clubbing, cyanosis, or edema. NEURO: Alert & Oriented x4 to person, place, time, situation. Moves all ext x4 Medications and IVs Current Medications Acetaminophen (Tylenol) 650 mg ONCE ONCE PO Last administered on 07/28/17 20: 41; Start 07/28/17 at 19:15; Stop 07/28/17 at 19:16; Status DC Vancomycin HCl 1000 mg/Sodium Chloride 250 ml @ 250 mls/hr ONCE STAT IV Last administered on 07/28/17 20:41; Start 07/28/17 at 19:11; Stop 07/28/17 at 20:10 ; Status DC Cefepime HCl 2000 mg/Sodium Chloride 100 ml @ 200 mls/hr ONCE STAT IV Last administered on 07/28/17 22:17; Start 07/28/17 at 19:11; Stop 07/28/17 at 19:40 ; Status DC Sodium Chloride 1,000 ml @ 999 mls/hr BOLUS ONCE IV Last administered on 07/28 20:41; Start 07/28/17 at 19:15; Stop 07/28/17 at 20:15; Status DC Potassium Chloride (KCl) 30 meq ONCE ONCE PO Last administered on 07/28/17 22 :18; Start 07/28/17 at 22:00; Stop 07/28/17 at 22:01; Status DC Sodium Chloride (NS Flush) 2 ml UNSCH PRN IV FLUSH FLUSH AFTER USING IV ACCESS ; Start 07/28/17 at 22:30 Sodium Chloride (NS Flush) 2 ml BID IV FLUSH ; Start 07/29/17 at 09:00 Naloxone HCl (Narcan Inj) 0.4 mg UNSCH PRN IV PUSH SEE LABEL COMMENTS; Start 07/28/17 at 22:30 Levofloxacin/ Dextrose 150 ml @ 100 mls/hr Q24H IV Last administered on 02:47; Start 07/29/17 at 02:00 Amlodipine Besylate (Norvasc) 2.5 mg DAILY PO ; Start 07/29/17 at 09:00 Albuterol/ Ipratropium (Duoneb Neb) 1 ampule Q6HR NEB NEB Last administered on 07/29/17 04:29; Start 07/29/17 at 04:00 Albuterol/ Ipratropium (Duoneb Neb) 1 ampule Q2HR NEB PRN NEB SOB/WHEEZING; Start 07/29/17 at 02:00 Enoxaparin Sodium (Lovenox Inj) 40 mg Q24H SQ ; Start 07/29/17 at 09:00 A/P Assessment and Plan A/P sepsis due to Pneumonia- suspect aspiration - change the antibiotic to IV Zosyn -consult ST - follow the cultures - Duonebulizers q6h scheduled and q2h PRN SOB/wheezing Hypokalemia - Potassium 3.3 on admission - orally replaced - recheck bmp today; pending. Hyponatremia, mild - Na+ 135 on admission - NS bolus given in ED Hypertension - resumed home medications - monitor trends in blood pressure and adjust medications accordingly DVT prophylaxis - Lovenox 40 mg subq q24h Ken Garcia MD Jul 29, 2017 08:52
[2017-07-29] MEDS: ENOXAPARIN SODIUM 40 MG/0.4 ML SYRINGE SQ SCH (09:00)
[2017-07-29 09:14] LABS: BICARBONATE 20.8 MEQ/L (21.0-32.0); POTASSIUM 3.5 MEQ/L (3.5-5.1)
[2017-07-29] MEDS: amLODIPine BESYLATE 5 MG TAB PO SCH (12:46)
[2017-07-29] MEDS: SODIUM CHLORIDE 0.9% FLUSH 10 ML FLUSH IV FLUSH SCH ×2 (12:46→21:01)
[2017-07-29] MEDS: PIPERACIL-TAZO 3.375 GM PREMIX 50 ML IV SCH ×3 (12:47→21:01)
[2017-07-29] MEDS: SODIUM CHLOR 0.9% 1000 ML INJ 1,000 ML IV SCH (21:01)
[2017-07-30] VITALS (8 sets, daily range): BP systolic 124–164; BP diastolic 72–79; PULSE 87–107; RESP 18–36; TEMP 97.9–100.3; O2SAT 92–96
[2017-07-30] MEDS ORDERED: FLUMAZENIL 0.5 MG/5 ML VIAL IV PUSH PRN (00:15)
[2017-07-30] MEDS ORDERED: LORazepam 2 MG/ML VIAL IV PUSH PRN ×2 (00:15)
[2017-07-30] MEDS ORDERED: LORazepam 1 MG TAB PO PRN (00:15)
[2017-07-30] MEDS ORDERED: LORazepam 2 MG TAB PO PRN (00:15)
[2017-07-30] MEDS: LORazepam 2 MG/ML VIAL IV PUSH PRN ×7 (00:23→22:39)
[2017-07-30] MEDS: PIPERACIL-TAZO 3.375 GM PREMIX 50 ML IV SCH ×4 (03:03→22:29)
[2017-07-30] MEDS: RESP: ALBUTEROL 2.5 MG/IPRATROPIUM 0.5 MG NEB (SCH) NEB ×2 (04:24→10:00)
[2017-07-30] MEDS: SODIUM CHLOR 0.9% 1000 ML INJ 1,000 ML IV SCH ×2 (06:16→20:36)
[2017-07-30] MEDS: ENOXAPARIN SODIUM 40 MG/0.4 ML SYRINGE SQ SCH (08:00)
[2017-07-30] MEDS: amLODIPine BESYLATE 5 MG TAB PO SCH (08:01)
[2017-07-30] MEDS: SODIUM CHLORIDE 0.9% FLUSH 10 ML FLUSH IV FLUSH SCH ×2 (08:03→20:36)
--- NOTE | 2017-07-30 08:31 | HHI.PR ---
Subjective Remarks in no acute distress. afebrile. denies pain. Objective Vitals Vital Signs Date Time Temp Pulse Resp B/P (MAP) Pulse Ox O2 Delivery O2 Flow Rate FiO2 07/30/17 04:45 94 Nasal Cannula 3.00 07/30/17 04:31 94 Nasal Cannula 2.00 07/30/17 04:30 88 Room Air 07/30/17 04:00 98.1 93 24 124/74 (91) 93 07/30/17 00:00 99.1 93 20 137/72 (93) 95 07/30/17 00:00 Room Air 07/29/17 20:15 102 07/29/17 20:00 Room Air 07/29/17 20:00 99.6 95 20 151/77 (101) 96 07/29/17 19:45 97 07/29/17 18:58 96 Room Air 07/29/17 16:00 97.7 107 20 140/85 (103) 96 07/29/17 12:00 97.0 95 20 149/80 (103) 95 I/O 07/29/17 07/29/17 07/29/17 07/30/17 07/30/17 07/30/17 07:00 15:00 23:00 07:00 15:00 23:00 Intake Total 150 ml 2035 ml Output Total 500 ml Balance -350 ml 2035 ml Intake Oral 0 ml IV Total 150 ml 2035 ml Output Urine Total 500 ml # Voids 3 3 # Bowel Movements 0 0 0 Result Diagram: 07/29/17 0748 07/29/17 0748 Imaging Last Impressions Chest X-Ray 07/28/17 191 Signed Impressions: Service Date/Time: Friday, July 28, 2017 19:54 - CONCLUSION: 1. Left base atelectasis or consolidation. 2. Nodular areas seen at the inferior lateral right hilar region likely related to a vessel on end. This could be followed up on future chest x-rays. If this persists, it could be followed up with a CT examination. Franki Eldridge MD Lower Extremity Ultrasound 07/28/17 Signed Impressions: Service Date/Time: Friday, July 28, 2017 19:14 - CONCLUSION: No DVT. Franki Eldridge MD Chest CT 07/28/17 Signed Impressions: Service Date/Time: Friday, July 28, 2017 23:40 - CONCLUSION: 1. Left greater than right bibasilar pneumonia. 2. Coronary artery calcification. Franki Moreno MD Objective Remarks GENERAL: in no acute distress CARDIOVASCULAR: Regular rate and regular rhythm without murmurs, gallops, or rubs. RESPIRATORY: Clear to auscultation. Breath sounds equal bilaterally. No wheezes , rales, or rhonchi. GASTROINTESTINAL: Abdomen soft, non-tender, nondistended. Normal, active bowel sounds MUSCULOSKELETAL: Extremities without clubbing, cyanosis, or edema. NEURO: awake and alert Medications and IVs Current Medications Acetaminophen (Tylenol) 650 mg ONCE ONCE PO Last administered on 07/28/17 20: 41; Start 07/28/17 at 19:15; Stop 07/28/17 at 19:16; Status DC Vancomycin HCl 1000 mg/Sodium Chloride 250 ml @ 250 mls/hr ONCE STAT IV Last administered on 07/28/17 20:41; Start 07/28/17 at 19:11; Stop 07/28/17 at 20:10 ; Status DC Cefepime HCl 2000 mg/Sodium Chloride 100 ml @ 200 mls/hr ONCE STAT IV Last administered on 07/28/17 22:17; Start 07/28/17 at 19:11; Stop 07/28/17 at 19:40 ; Status DC Sodium Chloride 1,000 ml @ 999 mls/hr BOLUS ONCE IV Last administered on 07/28 20:41; Start 07/28/17 at 19:15; Stop 07/28/17 at 20:15; Status DC Potassium Chloride (KCl) 30 meq ONCE ONCE PO Last administered on 07/28/17 22 :18; Start 07/28/17 at 22:00; Stop 07/28/17 at 22:01; Status DC Sodium Chloride (NS Flush) 2 ml UNSCH PRN IV FLUSH FLUSH AFTER USING IV ACCESS ; Start 07/28/17 at 22:30 Sodium Chloride (NS Flush) 2 ml BID IV FLUSH Last administered on 07/29/17 21: 01; Start 07/29/17 at 09:00 Naloxone HCl (Narcan Inj) 0.4 mg UNSCH PRN IV PUSH SEE LABEL COMMENTS; Start 07/28/17 at 22:30 Levofloxacin/ Dextrose 150 ml @ 100 mls/hr Q24H IV Last administered on 02:47; Start 07/29/17 at 02:00; Stop 07/29/17 at 08:53; Status DC Amlodipine Besylate (Norvasc) 2.5 mg DAILY PO Last administered on 07/29/17 12 :46; Start 07/29/17 at 09:00 Albuterol/ Ipratropium (Duoneb Neb) 1 ampule Q6HR NEB NEB Last administered on 07/30/17 04:24; Start 07/29/17 at 04:00 Albuterol/ Ipratropium (Duoneb Neb) 1 ampule Q2HR NEB PRN NEB SOB/WHEEZING; Start 07/29/17 at 02:00 Enoxaparin Sodium (Lovenox Inj) 40 mg Q24H SQ Last administered on 07/30/17 08 :00; Start 07/29/17 at 09:00 Piperacillin Sod/ Tazobactam Sod 50 ml @ 100 mls/hr Q6H IV Last administered on 07/30/17 08:01; Start 07/29/17 at 10:00 Sodium Chloride 1,000 ml @ 80 mls/hr [id number] IV Last administered on 06:16; Start 07/29/17 at 19:00 Flumazenil (Romazicon Inj) 0.2 mg Q1M PRN IV PUSH SEE LABEL COMMENTS; Start at 00:15 Lorazepam (Ativan) 1 mg Q4H PRN PO CIWA 8 - 10; Start 07/30/17 at 00:15 Lorazepam (Ativan Inj) 1 mg Q4H PRN IV PUSH CIWA 8 - 10; Start 07/30/17 at 00: 15 Lorazepam (Ativan) 2 mg Q2H PRN PO CIWA 11-14; Start 07/30/17 at 00:15 Lorazepam (Ativan Inj) 2 mg Q2H PRN IV PUSH CIWA 11-14; Start 07/30/17 at 00:15 Lorazepam (Ativan Inj) 2 mg Q1H PRN IV PUSH CIWA 15-20 Last administered on 03:03; Start 07/30/17 at 00:15 Lorazepam (Ativan Inj) 2 mg Q15M PRN IV PUSH CIWA > 20; Start 07/30/17 at 00:15 A/P Problem List: (1) Pneumonia ICD Code: J18.9 - Pneumonia, unspecified organism Status: Acute (2) Leukocytosis ICD Code: D72.829 - Elevated white blood cell count, unspecified Status: Acute (3) Hypokalemia ICD Code: E87.6 - Hypokalemia Status: Acute (4) Hyponatremia ICD Code: E87.1 - Hypo-osmolality and hyponatremia (5) Hypertension ICD Code: I10 - Essential (primary) hypertension Status: Chronic Assessment and Plan A/P sepsis due to Pneumonia- suspect aspiration - continue IV Zosyn -blood and sputum cultures negative so far. -consulted ST and recommended NPO- awaiting ST follow-up today. - continue neb treatment Hypokalemia -replaced. Hyponatremia, mild - improved. Hypertension - resumed home medications - monitor trends in blood pressure and adjust medications accordingly DVT prophylaxis - Lovenox 40 mg subq q24h PT consult appreciated. Discharge Planning case management for dc planning - to rehab. Problem Qualifiers (1) Pneumonia: Qualified Codes: J18.9 - Pneumonia, unspecified organism (2) Leukocytosis: Qualified Codes: D72.829 - Elevated white blood cell count, unspecified Ken Garcia MD Jul 30, 2017 08:31
[2017-07-30] MEDS ORDERED: ACETAMINOPHEN 650 MG SUPP RECTAL PRN (23:30)
[2017-07-30] MEDS ORDERED: HALOPERIDOL LACTATE 5 MG/ML AMP IM PRN (23:45)
[2017-07-31] VITALS (36 sets, daily range): BP systolic 91–136; BP diastolic 59–80; PULSE 75–104; RESP 17–28; TEMP 98.4–101.4; O2SAT 94–100
--- NOTE | 2017-07-31 00:12 | RADRPT ---
EXAM DATE/TIME: 07/30/2017 23:38 [facility] COMPARISON: CHEST SINGLE AP, July 28, 2017, 19:54. INDICATIONS : Congestion. MEDICAL HISTORY : Hypertension. Gastroesophageal reflux disease. Pancreatitis. CVA Arthritis SURGICAL HISTORY : Total knee replacement, left. Total knee replacement, right. Left hip arthroplasty ENCOUNTER: Subsequent ACUITY: 3 days PAIN SCORE: 0/10 LOCATION: Bilateral chest FINDINGS: Blurred by breathing motion artifact. A single view of the chest demonstrates the lungs to be symmetrically aerated without evidence of mas s, infiltrate or effusion. The cardiomediastinal contours are unremarkable. Osseous structures are intact. CONCLUSION: Limited study by motion artifact. Lungs are grossly clear. Eduardo Willoughby Jr., MD on July 31, 2017 at 0:10 Board Certified Radiologist. This report was verified electronically.
[2017-07-31 00:45] LABS: BLOOD GAS BASE EXCESS -4.9 mmol/L (-2-2); BLOOD GAS CARBOXYHEMOGLOBIN 1.7 % (0-4); BLOOD GAS HCO3 19 mmol/L (22-26); BLOOD GAS O2 HGB SATURATION 88 % (90-100); BLOOD GAS OXYGEN CONTENT 17.4 Vol % (12.0-20.0); BLOOD GAS PCO2 34 mmHg (38-42); BLOOD GAS PO2 63 mmHg (61-120); BLOOD GAS TOTAL HGB 14.2 G/DL (12.0-16.0); TEMP CORR TO 98.6
[2017-07-31 00:46] LABS: CRITICAL VALUE YES; DRAW SITE RT BRACHIAL; LITER FLOW 4 L/M; NUMBER OF ARTERIAL PUNCTURES 1; OXYGEN DEVICE NASAL CANNULA; STAT YES
[2017-07-31] MEDS ORDERED: PROPOFOL 1000 MG/100 ML INJ 100 ML ONE (00:51)
[2017-07-31] MEDS ORDERED: ETOMIDATE 20 MG/10 ML VIAL ONE (00:51)
[2017-07-31] MEDS ORDERED: PROPOFOL 1000 MG/100 ML INJ 100 ML IV PRN (01:00)
[2017-07-31] MEDS: DEXT 5%-NACL 0.9% 1000 ML INJ 1,000 ML IV SCH ×2 (01:15→13:10)
[2017-07-31] MEDS ORDERED: DEXTROSE 50% IN WATER 50 ML VIAL(D50) IV PUSH PRN (01:15)
[2017-07-31] MEDS ORDERED: GLUCAGON 1 MG/ML VIAL OTHER PRN (01:15)
--- NOTE | 2017-07-31 01:32 | RADRPT ---
EXAM DATE/TIME: 07/31/2017 01:17 [facility] COMPARISON: CHEST SINGLE AP, July 30, 2017, 23:38. INDICATIONS : Post intubation MEDICAL HISTORY : Hypertension. Gastroesophageal reflux disease. Pancreatitis, CVA SURGICAL HISTORY : Total knee replacement, left. Total knee replacement, right. Left hip arthroplasty ENCOUNTER: Subsequent ACUITY: 4 - 6 days PAIN SCORE: Non-responsive. LOCATION: Bilateral chest FINDINGS: A single portable frontal view the chest shows an endotracheal tube with the tip 1 cm from the arnel . Nasogastric tube is coiled within the stomach. Left basilar atelectasis. Right lung is clear. No ef fusions. Heart is normal in size. CONCLUSION: 1. Tip of the endotracheal tube 1 cm from the arnel. 2. Left basilar atelectasis. Eduardo Willoughby Jr., MD on July 31, 2017 at 1:30 Board Certified Radiologist. This report was verified electronically.
[2017-07-31 01:51] LABS: AUTOMATED NEUTROPHIL # 19.6 TH/MM3 (1.8-7.7); BASOPHIL # 0.1 TH/MM3 (0-0.2); BASOPHIL % 0.3 % (0.0-2.0); EOSINOPHIL % 0.2 % (0.0-4.0); HEMATOCRIT 40.8 % (39.0-51.0); LYMPH % 2.5 % (9.0-44.0); LYMPHOCYTE # 0.5 TH/MM3 (1.0-4.8); MEAN CELL VOLUME 101.2 FL (80.0-100.0); MEAN CORPUSCULAR HEMOGLOBIN 33.6 PG (27.0-34.0); MEAN CORPUSCULAR HGB CONC 33.2 % (32.0-36.0); MONO % 5.5 % (0.0-8.0); NEUT % 91.5 % (16.0-70.0); PLATELET COUNT 276 TH/MM3 (150-450); RED BLOOD COUNT 4.03 MIL/MM3 (4.50-5.90); RED CELL DISTRIBUTION WIDTH 16.4 % (11.6-17.2); WHITE BLOOD COUNT 21.4 TH/MM3 (4.0-11.0)
[2017-07-31] MEDS: PROPOFOL 1000 MG/100 ML INJ 100 ML IV PRN ×2 (01:52→20:23)
[2017-07-31] MEDS: MIDAZOLAM 100 MG/100 ML INJ 100 ML IV PRN ×2 (01:52→20:03)
[2017-07-31 01:55] LABS: BLOOD GAS BASE EXCESS -6.3 mmol/L (-2-2); BLOOD GAS CARBOXYHEMOGLOBIN 1.7 % (0-4); BLOOD GAS HCO3 18 mmol/L (22-26); BLOOD GAS METHEMOGLOBIN 1.2 % (0-2); BLOOD GAS O2 HGB SATURATION 90 % (90-100); BLOOD GAS OXYGEN CONTENT 16.9 Vol % (12.0-20.0); BLOOD GAS PCO2 32 mmHg (38-42); BLOOD GAS PO2 74 mmHg (61-120); BLOOD GAS TOTAL HGB 13.3 G/DL (12.0-16.0); CRITICAL VALUE NO; OXYGEN DEVICE VENTILATOR; TEMP CORR TO 98.6
[2017-07-31 01:56] LABS: DRAW SITE RT RADIAL; FIO2 50 %; NUMBER OF ARTERIAL PUNCTURES 1; STAT NO; ULNAR PULSE PRESENT; VENT SETTINGS AC14/550/PEEP5
[2017-07-31 01:57] LABS: HEMO FLAGS AUTO DIFF
[2017-07-31 02:17] LABS: ALKALINE PHOSPHATASE 138 U/L (45-117); ALT (GPT) 35 U/L (12-78); ANION GAP 14 MEQ/L (5-15); AST (GOT) 51 U/L (15-37); BLOOD UREA NITROGEN 7 MG/DL (7-18); CHLORIDE 100 MEQ/L (98-107); GLOMERULAR FILTRATION RATE 114 ML/MIN (>89); MAGNESIUM 1.6 MG/DL (1.5-2.5); POTASSIUM 3.2 MEQ/L (3.5-5.1); SODIUM (NA) 134 MEQ/L (136-145); TOTAL BILIRUBIN ADULT 2.6 MG/DL (0.2-1.0)
[2017-07-31] MEDS: VANCOMYCIN INJ 1,000 MG in SODIUM CHLOR 0.9% 250 ML INJ 250 ML IV SCH ×2 (02:18→13:38)
[2017-07-31 02:44] LABS: BANDS 9 % (0-6); NEUTROPHIL # MANUAL DIFF 19.7 TH/MM3 (1.8-7.7); POLYS (SEG NEUTROPHILS) 82 % (16-70); PROMYELOCYTES 1 % (0-0); WBC DIFF SAMPLE 100
[2017-07-31 02:45] LABS: PLATELET ESTIMATE SMEAR NORMAL (NORMAL); PLATELET MORPHOLOGY CLUMPED (NORMAL); SCAN/DIFF FINAL DIFF MANUAL
[2017-07-31 02:46] LABS: KERATOCYTES OCC (NORMAL); OVALOCYTES 1+ (NORMAL)
[2017-07-31] MEDS: INSULIN NovoLIN REGULAR SUPPLEMENTAL SCALE SQ SCH ×5 (04:00→20:00)
[2017-07-31] MEDS ORDERED: MAGNESIUM SULFATE INJ 4 GM in SODIUM CHLORIDE 0.9% INJ 92 ML IV PRN (04:15)
[2017-07-31] MEDS ORDERED: POTASSIUM CHLOR 20 MEQ PREMIX 100 ML IV PRN (04:15)
[2017-07-31] MEDS ORDERED: SODIUM PHOSPHATE INJ 30 MMOL in SODIUM CHLOR 0.9% 250 ML INJ 240 ML IV PRN (04:15)
[2017-07-31] MEDS ORDERED: POTASSIUM CHLOR 40 MEQ PREMIX 100 ML IV PRN ×2 (04:15)
[2017-07-31] MEDS ORDERED: POTASSIUM PHOSPHATE MONOBASIC 500 MG TAB PO/TUBE PRN (04:15)
[2017-07-31] MEDS ORDERED: POTASSIUM PHOSPHATE MONOBASIC 500 MG TAB PO PRN (04:15)
[2017-07-31] MEDS ORDERED: MAGNESIUM SULFATE INJ 2 GM in SODIUM CHLORIDE 0.9% INJ 96 ML IV PRN (04:15)
[2017-07-31] MEDS ORDERED: POTASSIUM PHOSPHATE INJ 30 MMOL in SODIUM CHLOR 0.9% 250 ML INJ 250 ML IV PRN (04:15)
[2017-07-31] MEDS ORDERED: MAGNESIUM OXIDE 400 MG TAB PO PRN (04:15)
[2017-07-31] MEDS ORDERED: POTASSIUM CHLORIDE 25 MEQ EFFERVESCENT TAB PO PRN (04:15)
[2017-07-31] MEDS: PIPERACIL-TAZO 3.375 GM PREMIX 50 ML IV SCH ×4 (04:55→22:20)
[2017-07-31] MEDS: POTASSIUM CHLOR 20 MEQ PREMIX 100 ML IV PRN (06:38)
--- NOTE | 2017-07-31 07:00 | MB ---
cc: HERMAN ALEXIS M.D. DATE OF CONSULTATION: 07/30/2017 DATE OF : 1945 REASON FOR CONSULTATION: The patient is a 72-year-old male with past medical history of hypertension, Cerebrovascular accident, EtOH abuse who was admitted under hospitalist service on July 28 for pneumonia. The patient had chest x-ray on admission which showed left base atelectasis or consolidation, in addition to nodular areas seen at the inferior lateral right hilar region. He subsequently had CT scan of the chest which showed left greater than right bibasilar pneumonia in addition to coronary artery calcifications. The patient was placed on broad-spectrum antibiotics and bronchodilators. In addition he was on CIWA protocol given his history of EtOH use. HELICAT was called on the patient for respiratory distress. He was transferred to ICU and ABG was performed by the primary team which showed a pH of 7.37, CO2 34, pAO2 63, bicarb of 19 and saturation 88%. When seen the patient was on non-rebreather mask unresponsive, tachypneic and tachycardiac. He was subsequently intubated by myself and placed on full mechanical ventilation. He placed on Diprivan infusion for sedation and vent synchrony. PAST MEDICAL HISTORY: 1. Past medical history significant for hypertension. 2. Cerebrovascular accident. PAST SURGICAL HISTORY 1. Previous carotid endarterectomy 2. previous bilateral knee replacement 3. left hip replacement. ALLERGIES NO KNOWN DRUG ALLERGIES. CURRENT MEDICATIONS 1. Amlodipine. 2. DuoNeb. 3. Lovenox Subcu. 4. Haldol p.r.n. FAMILY HISTORY Hypertension runs in the family. SOCIAL HISTORY The patient quit smoking about 1 year ago. Drinks three to four shots of vodka per day per records. REVIEW OF SYSTEMS As per HPI. Rest of the systems unobtainable. PHYSICAL EXAMINATION IN GENERAL: 72-year-old male intubated for respiratory failure. VITAL SIGNS: T-max 100.3. Pulse of 117, The patient was hypertensive prior to intubation with pressure 164/78, saturation 96% vent setting assist control rate of 14, tidal volume 550, PEEP of five, FIO2 100%. HEAD, EYES, EARS, NOSE, AND THROAT: Atraumatic, normocephalic pupil equal and reactive to accommodation X on muscles intact. Conjunctivae pink. Nonicteric sclerae. Oral mucosa within normal. NECK: Supple. No Jugular venous distention, adenopathy or thyromegaly. Trachea midline. Orally intubated. CARDIOVASCULAR SYSTEM: Cardiac examination, tachycardiac normal S1-S2. No murmurs, rubs or gallops noted. PULMONARY: Pulmonary exam bilateral equal entry with coarse breath sounds. ABDOMEN: Soft, obese, nontender, no distension. Positive bowel sounds. EXTREMITIES: No cyanosis or edema. NEUROLOGIC: Intubated and sedated. LABORATORY DATA Laboratory data from sodium 136, 1003.5, chloride 104, CO2 21, BUN 11, creatinine 0.77, glucose 100, WBC 17.9, hemoglobin 13.4, hematocrit 39, platelet count of 205, INR 1.1, PT 11.9, PTT 28.9. RADIOGRAPHY CT scan of the chest from July 28 showed bibasilar pneumonia, left greater than right. Chest x-ray from July 30 showed clear lungs. CULTURES: Blood cultures, sputum culture from July 28 showed no growth nasal aspirate for influenza screening is negative on July 29. IMPRESSION 1. Acute hypoxemic respiratory failure. 2. Altered mental status. 3. Pneumonia. 4. Leukocytosis. 5. EtOH abuse. 6. Hypertension 7. History of CVA. RECOMMENDATIONS 1. Place on fentanyl for infusion for sedation and vent synchrony. Next will add thiamine, multivitamins and folic acid. 2. Continue with vent support and maintain sats above 92%. 3. Bronchodilators in the form of DuoNeb q. six initiate ICU vent bundle. 4. Check chest x-ray and ABG post intubation. 5. Monitor heart rate and blood pressure closely and maintain MAP greater than 65 mmHg. 6. Monitor renal function Is and Os and electrolyte replacement as needed. 7. Place on IV fluids in the form of D5 NS at 84 an hour. 8. Keep n.p.o. for now and place on Protonix 40 mg IV daily for GI prophylaxis. 9. Start nutrition support within the next 24 hours if remains intubated. 10. Continue with antibiotics in the form of Zosyn in addition we will add vancomycin. 11. Monitor for signs of infections which include fever and WBC. 12. We will repeat blood cultures times two sets and check sputum culture with gram stain in addition will send for strep pneumonia and Legionella urinary antigen. Monitor for signs infections which include fever and WBC. The patient had nasal screening on July 29 which was negative for influenza. 13. His blood culture and sputum culture from July [address] on sliding scale insulin with Accu-Chek q. 4-hour for glycemic control. 15. GI prophylaxis will place on Protonix 40 mg IV daily and DVT prophylaxis with SCDs and Lovenox 40 mg Subcu daily. 16. Further recommendations will be based on hospital course. 17. Critical care time 35 minutes excluding procedures. Thank you MD ELLA Roman/stefano /1:10 AM /6:44 AM
[2017-07-31] MEDS ORDERED: POTASSIUM CHLORIDE 20 MEQ PWD PACKET DOBHOFF ONE (07:45)
[2017-07-31] MEDS ORDERED: RESP: ALBUTEROL 2.5 MG/3 ML NEB (PRN) NEB (08:00)
[2017-07-31 08:15] LABS: AUTOMATED NEUTROPHIL # 19.4 TH/MM3 (1.8-7.7); BASOPHIL # 0.1 TH/MM3 (0-0.2); BASOPHIL % 0.3 % (0.0-2.0); EOSINOPHIL # 0.1 TH/MM3 (0-0.4); EOSINOPHIL % 0.5 % (0.0-4.0); HEMATOCRIT 38.2 % (39.0-51.0); HEMO FLAGS DIFF FINAL; LYMPH % 4.7 % (9.0-44.0); MEAN CELL VOLUME 100.7 FL (80.0-100.0); MEAN CORPUSCULAR HEMOGLOBIN 33.4 PG (27.0-34.0); MEAN CORPUSCULAR HGB CONC 33.1 % (32.0-36.0); MONO % 6.7 % (0.0-8.0); NEUT % 87.8 % (16.0-70.0); PLATELET COUNT 242 TH/MM3 (150-450); RED BLOOD COUNT 3.79 MIL/MM3 (4.50-5.90); RED CELL DISTRIBUTION WIDTH 15.9 % (11.6-17.2); WHITE BLOOD COUNT 22.1 TH/MM3 (4.0-11.0)
[2017-07-31] MEDS: BENEPROTEIN POWDER 1 PACK G-TUBE SCH ×3 (09:00→18:00)
[2017-07-31] MEDS: SODIUM CHLORIDE 0.9% FLUSH 10 ML FLUSH IV FLUSH SCH ×2 (09:00→20:03)
[2017-07-31] MEDS ORDERED: PANTOPRAZOLE SODIUM 40 MG VIAL IV PUSH SCH (09:00)
[2017-07-31] MEDS: RESP: ALBUTEROL 2.5 MG/IPRATROPIUM 0.5 MG NEB (SCH) NEB ×3 (09:09→20:01)
[2017-07-31] MEDS: CHLORHEXIDINE 0.12% (ORAL KIT) 15 ML CUP MT SCH ×2 (09:54→20:04)
[2017-07-31] MEDS: ENOXAPARIN SODIUM 40 MG/0.4 ML SYRINGE SQ SCH (09:54)
[2017-07-31] MEDS: LANSOPRAZOLE SOLUTAB 30 MG TAB NG SCH (09:55)
[2017-07-31] MEDS: THIAMINE HCL 100 MG TAB PO SCH (09:55)
[2017-07-31] MEDS: MAGNESIUM SULFATE 1 GM PREMIX 100 ML IV SCH ×3 (09:55→13:29)
[2017-07-31] MEDS: MULTIVITAMIN TAB PO SCH (09:55)
[2017-07-31] MEDS: FOLIC ACID 1 MG TAB PO SCH (09:56)
[2017-07-31] MEDS: ARTIFICIAL TEARS OPTH SOLN 15 ML BTL EACH EYE SCH ×2 (13:38→22:20)
--- NOTE | 2017-07-31 14:53 | HHI.CCPN ---
Subjective Remarks/Hospital Course The patient is a 72-year-old male with past medical history of hypertension, Cerebrovascular accident, EtOH abuse who was admitted under hospitalist service on July 28 for pneumonia. The patient had chest x-ray on admission which showed left base atelectasis or consolidation, in addition to nodular areas seen at the inferior lateral right hilar region. He subsequently had CT scan of the chest which showed left greater than right bibasilar pneumonia in addition to coronary artery calcifications. The patient was placed on broad-spectrum antibiotics and bronchodilators. In addition he was on CIWA protocol given his history of EtOH use. HELICAT was called on the patient for respiratory distress. He was transferred to ICU and ABG was performed by the primary team which showed a pH of 7.37, CO2 34, pAO2 63 , bicarb of 19 and saturation 88%. When seen the patient was on non-rebreather mask unresponsive, tachypneic and tachycardiac. He was subsequently intubated by myself and placed on full mechanical ventilation. He placed on Diprivan infusion for sedation and vent synchrony. Subjective 07/31: Remains orotracheally intubated. Currently resting in bed in no acute distress on propofol drip. Objective Vital Signs Date Time Temp Pulse Resp B/P (MAP) Pulse Ox O2 Delivery O2 Flow Rate FiO2 07/31/17 13:46 98 50 07/31/17 06:00 86 07/31/17 04:00 98.4 26 97/61 (73) 07/31/17 00:10 15.00 07/30/17 20:00 Nasal Cannula Intake and Output 07/31/17 07/31/17 08/01/17 08:00 16:00 00:00 Intake Total 732 ml Balance 732 ml Result Diagram: 07/31/17 0755 07/31/17 0128 Other Results Date/Time Source Procedure Growth Status 07/31/17 01:28 Blood Peripheral Aerobic Blood Culture Pending Received 07/31/17 01:28 Blood Peripheral Anaerobic Blood Culture Pending Received 07/31/17 01:24 Blood Peripheral Aerobic Blood Culture Pending Received 07/31/17 01:24 Blood Peripheral Anaerobic Blood Culture Pending Received 07/31/17 01:05 Sputum Endotracheal Gram Stain - Final Resulted 07/31/17 01:05 Sputum Endotracheal Sputum Culture Pending Resulted Imaging Last Impressions Chest X-Ray 07/31/17 0000 Signed Impressions: Service Date/Time: Monday, July 31, 2017 01:17 - CONCLUSION: 1. Tip of the endotracheal tube 1 cm from the arnel. 2. Left basilar atelectasis. Eduardo Willoughby Jr., MD Lower Extremity Ultrasound 07/28/17 0000 Signed Impressions: Service Date/Time: Friday, July 28, 2017 19:14 - CONCLUSION: No DVT. Franki Eldridge MD Chest CT 07/28/17 0000 Signed Impressions: Service Date/Time: Friday, July 28, 2017 23:40 - CONCLUSION: 1. Left greater than right bibasilar pneumonia. 2. Coronary artery calcification. Franki Moreno MD Objective Remarks GENERAL: 72-year-old male, critically ill currently orotracheally intubated SKIN: Warm and dry. HEAD: Atraumatic. Normocephalic. EYES: Pupils equal and round. No scleral icterus. No injection or drainage. ENT: No nasal bleeding or discharge. Mucous membranes pink and moist. NECK: Trachea midline. No JVD. CARDIOVASCULAR: Regular rate and rhythm. RESPIRATORY: Breath sounds are appreciated bilaterally. GASTROINTESTINAL: Abdomen soft, non-tender, protuberant. Hypoactive bowel sounds are appreciated. MUSCULOSKELETAL: Extremities without significant peripheral edema. No obvious deformities. NEUROLOGICAL: Sedated on the ventilator. Withdraws to pain. Positive gag. A/P Assessment and Plan Neuro/Psych: History of bilateral basal ganglia CVA EtOH Patient is currently on propofol/fentanyl drips for sedation/analgesia while intubated Goal of RASS -2 Daily sedation vacation Continue thiamine 100 mg daily, folate 1 mg daily multivitamin daily Monitor for DTs CV: History of right carotid CEA 2015 Dr. Foster Hypertension Currently holding amlodipine 2.5 mill grams by mouth daily. Resume when clinically indicated Currently on D5 normal saline at 84 cc an hour Monitor goal to keep mean arterial pressure greater than 65 Resp: Acute respiratory failure secondary to pneumonia ACV 14/550/5/50 Ventilator bundle Albuterol/hypertrophy aerosols every 6 Payton Bearce is controlled. Dyspnea CT thorax 07/28 revealed bilateral lower lobe infiltrates left greater than right. GI: Hypoalbuminemia Elevated total bilirubin Start tube feeding with Jevity 1.5 goal 55 cc an hour Lansoprazole for GI prophylaxis Docusate sodium/senna 1 tab twice a day for bowel regimen : Anand catheter for accurate I's and O's in a critically ill patient Endo: Sliding-scale insulin with Accu-Cheks to maintain euglycemia every 4 hours low regimen Renal: Creatinine currently within normal limits Monitor urine output Accurate I's and O's Heme: Leukocytosis Macrocytic anemia Monitor CBC daily. Follow trends ID: Continue vancomycin/piperacillin/tazobactam for pneumonia Pertinent cultures 07/28 and 07/31 - sputum - no growth 07/28 and 07/31 - blood cultures 2 - no growth Influenza negative -07/29 MSK: Range of motion FEN: Hyponatremia Hypokalemia Currently receiving 80 mEq potassium chloride. Recheck this afternoon. Replace electrolytes as clinically indicated Access - Utilize peripheral IV. Central line if indicated Prophylaxis - GI - lansoprazole - DVT - SCD/enoxaparin 25 additional critical care minutes evaluation patient care this Patrick Garcia MD Jul 31, 2017 14:53
--- NOTE | 2017-07-31 18:49 | RADRPT ---
EXAM DATE/TIME: 07/31/2017 18:09 [facility] COMPARISON: CT THORAX W/O CONTRAST, July 28, 2017, 23:40. INDICATIONS : Increased lab values. MEDICAL HISTORY : Hypertension. Gastroesophageal reflux disease. Arthritis. Neck pain. Glasses. Transient ischemic terell ck. Numbness. Dyspnea. Pancreatitis. SURGICAL HISTORY : Total knee replacement, left. Total knee replacement, right. Right hip replacement. Lt hip surgery. ENCOUNTER: Subsequent ACUITY: 1 day PAIN SCORE: Nonresponsive. LOCATION: Bilateral upper quadrant MEASUREMENTS: LIVER: 16.0 cm length COMMON DUCT: 4 mm RIGHT KIDNEY: 11.4 x 5.6 x 6.9 cm SPLEEN: 10.8 cm length FINDINGS: LIVER: Increased echotexture without focal lesion or ductal dilatation. Small right pleural effusion. COMMON DUCT: No intraluminal mass or stone visualized. GALLBLADDER: Contains no stones, demonstrates no wall thickening or pericholecystic fluid. PANCREAS: The visualized portions are within normal limits. RIGHT KIDNEY: No hydronephrosis, stone or mass. SPLEEN: No focal lesion. Left pleural effusion. CONCLUSION: 1. Bilateral pleural effusion is noted. 2. Echogenic liver parenchyma characteristic of steatosis. Jeff Douglass MD on July 31, 2017 at 18:46 Board Certified Radiologist. This report was verified electronically.
[2017-07-31 19:08] LABS: POTASSIUM 3.4 MEQ/L (3.5-5.1)
[2017-07-31 19:19] LABS: MAGNESIUM 2.2 MG/DL (1.5-2.5)
[2017-07-31] MEDS: ACETAMINOPHEN 650 MG/20.3 ML UDC OG-TUBE PRN (20:03)
[2017-07-31] MEDS: DOCUSATE SODIUM 100 MG/10 ML UDC PO SCH (20:03)
[2017-08-01] VITALS (20 sets, daily range): BP systolic 84–132; BP diastolic 55–75; PULSE 74–118; RESP 14–22; TEMP 98.1–100.8; O2SAT 91–100
[2017-08-01] MEDS: DEXT 5%-NACL 0.9% 1000 ML INJ 1,000 ML IV SCH (00:20)
[2017-08-01] MEDS: PROPOFOL 1000 MG/100 ML INJ 100 ML IV PRN (03:28)
[2017-08-01] MEDS: VANCOMYCIN INJ 1,000 MG in SODIUM CHLOR 0.9% 250 ML INJ 250 ML IV SCH ×2 (03:28→14:00)
[2017-08-01] MEDS: RESP: ALBUTEROL 2.5 MG/IPRATROPIUM 0.5 MG NEB (SCH) NEB ×4 (03:34→20:39)
[2017-08-01] MEDS: INSULIN NovoLIN REGULAR SUPPLEMENTAL SCALE SQ SCH ×5 (04:00→17:21)
--- NOTE | 2017-08-01 04:58 | RADRPT ---
EXAM DATE/TIME: 08/01/2017 04:21 [facility] COMPARISON: CHEST SINGLE AP, July 31, 2017, 1:17. INDICATIONS : Shortness of breath, possible pulmonary disease. MEDICAL HISTORY : Hypertension. Gastroesophageal reflux disease. Pancreatitis. CVA SURGICAL HISTORY : Total knee replacement, left. Total knee replacement, right. Left hip arthroplasty ENCOUNTER: Subsequent ACUITY: 1 week PAIN SCORE: Non-responsive. LOCATION: Bilateral chest FINDINGS: A single portable frontal view the chest shows a left lower lobe parenchymal consolidation slightly m ore pronounced than the prior study. Right lung is clear. Left costophrenic angle omitted from the fi lm. Tip of endotracheal tube 1 cm from the arnel. Nasogastric tube courses off the anterior margin o f the film. Heart is normal in size. CONCLUSION: Developing left lower lobe infiltrate. Endotracheal tube tip 1 cm proximal to the arnel. Eduardo Willoughby Jr., MD on August 01, 2017 at 4:55 Board Certified Radiologist. This report was verified electronically.
[2017-08-01] MEDS: PIPERACIL-TAZO 3.375 GM PREMIX 50 ML IV SCH ×2 (05:22→10:00)
[2017-08-01] MEDS: MIDAZOLAM 100 MG/100 ML INJ 100 ML IV PRN ×2 (05:23→17:58)
[2017-08-01] MEDS: ARTIFICIAL TEARS OPTH SOLN 15 ML BTL EACH EYE SCH ×3 (05:23→21:56)
[2017-08-01 05:24] LABS: APTT (PATIENT) 28.9 SEC (24.3-30.1)
[2017-08-01 05:29] LABS: AUTOMATED NEUTROPHIL # 13.9 TH/MM3 (1.8-7.7); BASOPHIL # 0.1 TH/MM3 (0-0.2); BASOPHIL % 0.5 % (0.0-2.0); EOSINOPHIL # 0.3 TH/MM3 (0-0.4); EOSINOPHIL % 1.8 % (0.0-4.0); HEMATOCRIT 37.7 % (39.0-51.0); HEMO FLAGS DIFF FINAL; LYMPH % 6.5 % (9.0-44.0); LYMPHOCYTE # 1.1 TH/MM3 (1.0-4.8); MEAN CELL VOLUME 101.3 FL (80.0-100.0); MEAN CORPUSCULAR HGB CONC 34.5 % (32.0-36.0); MONO % 6.8 % (0.0-8.0); NEUT % 84.4 % (16.0-70.0); PLATELET COUNT 241 TH/MM3 (150-450); RED BLOOD COUNT 3.72 MIL/MM3 (4.50-5.90); RED CELL DISTRIBUTION WIDTH 16.3 % (11.6-17.2); WHITE BLOOD COUNT 16.5 TH/MM3 (4.0-11.0)
[2017-08-01 05:49] LABS: ALKALINE PHOSPHATASE 118 U/L (45-117); ALT (GPT) 26 U/L (12-78); ANION GAP 8 MEQ/L (5-15); AST (GOT) 28 U/L (15-37); BICARBONATE 23.2 MEQ/L (21.0-32.0); BLOOD UREA NITROGEN 7 MG/DL (7-18); CHLORIDE 106 MEQ/L (98-107); GLOMERULAR FILTRATION RATE 116 ML/MIN (>89); MAGNESIUM 2.2 MG/DL (1.5-2.5); SODIUM (NA) 137 MEQ/L (136-145); TOTAL BILIRUBIN ADULT 1.3 MG/DL (0.2-1.0)
[2017-08-01 06:01] LABS: POTASSIUM 2.9 MEQ/L (3.5-5.1)
[2017-08-01] MEDS: POTASSIUM CHLOR 20 MEQ PREMIX 100 ML IV PRN (07:48)
[2017-08-01] MEDS: CHLORHEXIDINE 0.12% (ORAL KIT) 15 ML CUP MT SCH ×2 (08:00→21:55)
[2017-08-01] MEDS ORDERED: POTASSIUM PHOSPHATE INJ 30 MMOL in SODIUM CHLOR 0.9% 250 ML INJ 250 ML IV ONE (08:30)
[2017-08-01] MEDS ORDERED: POTASSIUM CHLORIDE 20 MEQ PWD PACKET OG-TUBE ONE (08:30)
[2017-08-01] MEDS: FOLIC ACID 1 MG TAB PO SCH (08:35)
[2017-08-01] MEDS: LANSOPRAZOLE SOLUTAB 30 MG TAB NG SCH (08:35)
[2017-08-01] MEDS: THIAMINE HCL 100 MG TAB PO SCH (08:35)
[2017-08-01] MEDS: ENOXAPARIN SODIUM 40 MG/0.4 ML SYRINGE SQ SCH (08:35)
[2017-08-01] MEDS: MULTIVITAMIN TAB PO SCH (08:35)
[2017-08-01] MEDS: BENEPROTEIN POWDER 1 PACK G-TUBE SCH ×3 (08:36→17:16)
[2017-08-01] MEDS: SODIUM CHLORIDE 0.9% FLUSH 10 ML FLUSH IV FLUSH SCH ×2 (08:36→21:56)
[2017-08-01] MEDS: SENNOSIDES SYRUP 8.8 MG/5 ML CUP PO SCH (08:36)
[2017-08-01] MEDS: DOCUSATE SODIUM 100 MG/10 ML UDC PO SCH ×2 (08:36→21:55)
--- NOTE | 2017-08-01 16:35 | HHI.CCPN ---
Subjective Remarks/Hospital Course The patient is a 72-year-old male with past medical history of hypertension, Cerebrovascular accident, EtOH abuse who was admitted under hospitalist service on July 28 for pneumonia. The patient had chest x-ray on admission which showed left base atelectasis or consolidation, in addition to nodular areas seen at the inferior lateral right hilar region. He subsequently had CT scan of the chest which showed left greater than right bibasilar pneumonia in addition to coronary artery calcifications. The patient was placed on broad-spectrum antibiotics and bronchodilators. In addition he was on CIWA protocol given his history of EtOH use. HELICAT was called on the patient for respiratory distress. He was transferred to ICU and ABG was performed by the primary team which showed a pH of 7.37, CO2 34, pAO2 63 , bicarb of 19 and saturation 88%. When seen the patient was on non-rebreather mask unresponsive, tachypneic and tachycardiac. He was subsequently intubated by myself and placed on full mechanical ventilation. He placed on Diprivan infusion for sedation and vent synchrony. 07/31: Remains orotracheally intubated. Currently resting in bed in no acute distress on propofol drip. Subjective 08/01: Tmax 101.4. Currently 100.3. FiO2 down to 35%. Currently on Midazolam at 8 mg an hour for sedation. Positive BM yesterday. Tolerating tube feeds currently at 40 cc an hour Objective Vital Signs Date Time Temp Pulse Resp B/P (MAP) Pulse Ox O2 Delivery O2 Flow Rate FiO2 08/01/17 15:18 98 35 08/01/17 14:00 80 08/01/17 12:00 100.3 14 119/69 (86) 07/31/17 00:10 15.00 07/30/17 20:00 Nasal Cannula Intake and Output 08/01/17 08/01/17 08/02/17 08:00 16:00 00:00 Intake Total 696 ml Output Total 700 ml Balance -4 ml Result Diagram: 08/01/17 0452 08/01/17 0452 Other Results Microbiology Date/Time Source Procedure Growth Status 07/31/17 01:28 Blood Peripheral Aerobic Blood Culture - Preliminary NO GROWTH IN 1 DAY Resulted 07/31/17 01:28 Blood Peripheral Anaerobic Blood Culture - Preliminary NO GROWTH IN 1 DAY Resulted 07/31/17 01:05 Sputum Endotracheal Gram Stain - Final Resulted 07/31/17 01:05 Sputum Endotracheal Sputum Culture - Preliminary LIGHT GROWTH NORMAL RESPIRATORY JEFF... Resulted Imaging Last Impressions Chest X-Ray 08/01/17 0600 Signed Impressions: Service Date/Time: Tuesday, August 01, 2017 04:21 - CONCLUSION: Developing left lower lobe infiltrate. Endotracheal tube tip 1 cm proximal to the arnel. Eduardo Willoughby Jr., MD Liver Ultrasound 07/31/17 0000 Signed Impressions: Service Date/Time: Monday, July 31, 2017 18:09 - CONCLUSION: 1. Bilateral pleural effusion is noted. 2. Echogenic liver parenchyma characteristic of steatosis. Jeff Douglass MD Lower Extremity Ultrasound 07/28/17 0000 Signed Impressions: Service Date/Time: Friday, July 28, 2017 19:14 - CONCLUSION: No DVT. Franki Eldridge MD Chest CT 07/28/17 0000 Signed Impressions: Service Date/Time: Friday, July 28, 2017 23:40 - CONCLUSION: 1. Left greater than right bibasilar pneumonia. 2. Coronary artery calcification. Franki Moreno MD Objective Remarks GENERAL: 72-year-old male, critically ill currently orotracheally intubated SKIN: Warm and dry. HEAD: Atraumatic. Normocephalic. EYES: Pupils equal and round. No scleral icterus. No injection or drainage. ENT: No nasal bleeding or discharge. Mucous membranes pink and moist. NECK: Trachea midline. No JVD. CARDIOVASCULAR: Regular rate and rhythm. RESPIRATORY: Breath sounds are appreciated bilaterally. GASTROINTESTINAL: Abdomen soft, non-tender, protuberant. Hypoactive bowel sounds are appreciated. MUSCULOSKELETAL: Extremities without significant peripheral edema. No obvious deformities. NEUROLOGICAL: Sedated on the ventilator. Withdraws to pain. Positive gag. A/P Assessment and Plan Neuro/Psych: History of bilateral basal ganglia CVA EtOH Patient is currently on midazolam drip at 8 mg an hour drips for sedation/ analgesia while intubated Goal of RASS -2 Daily sedation vacation Continue thiamine 100 mg daily, folate 1 mg daily multivitamin daily Monitor for DTs CV: History of right carotid CEA 2015 Dr. Foster Hypertension Currently holding amlodipine 2.5 mill grams by mouth daily. Resume when clinically indicated Currently on D5 normal saline at 84 cc an hour Monitor goal to keep mean arterial pressure greater than 65 Resp: Acute respiratory failure secondary to pneumonia / ACV 14/550/5/50 Ventilator bundle Albuterol/hypertrophy aerosols every 6 Payton Bearce is controlled. Dyspnea CT thorax 07/28 revealed bilateral lower lobe infiltrates left greater than right. GI: Hypoalbuminemia Elevated total bilirubin Initially started tube feeding with Jevity 1.5 goal 55 cc an hour switch to vital 1.5 goal set 5 cc an hour per nutrition's recommendations Lansoprazole 30 mg daily for GI prophylaxis Docusate sodium/senna 1 tab twice a day for bowel regimen : Anand catheter for accurate I's and O's in a critically ill patient Endo: Sliding-scale insulin with Accu-Cheks to maintain euglycemia every 12 hours low regimen Renal: Creatinine currently within normal limits Monitor urine output Accurate I's and O's Heme: Leukocytosis Macrocytosis Monitor CBC daily. Follow trends ID: Oral thrush Pneumonia community-acquired Continue vancomycin/piperacillin/tazobactam for pneumonia Continue nystatin swish and spit 4 times a day 5 mm Pertinent cultures 07/28 and 07/31 - sputum - no growth 07/28 and 07/31 - blood cultures 2 - no growth Influenza negative -07/29 MSK: Range of motion FEN: Hypophosphatemia Hypokalemia Currently receiving 80 mEq potassium chloride. 30 mmol K-Phos. Recheck potassium this afternoon. Replace electrolytes as clinically indicated Access - Utilize peripheral IV. Central line if indicated Prophylaxis - GI - lansoprazole - DVT - SCD/enoxaparin Critical Care: The total critical care time was 30 minutes. Time to perform other separately billable procedures was not included in the critical care time. Patrick Torres MD Aug 01, 2017 16:35
[2017-08-01] MEDS ORDERED: LACTULOSE SYRUP 20 GM/30 ML CUP PO ONE (16:45)
[2017-08-01] MEDS ORDERED: fentaNYL DRIP 250 ML IV PRN (17:15)
[2017-08-01] MEDS: PIPERACIL-TAZO 4.5 GM PREMIX 100 ML IV SCH (17:16)
[2017-08-01] MEDS ORDERED: NYSTATIN SUSP 500,000 U/5 ML CUP SWISH-SPIT SCH (18:00)
[2017-08-01] MEDS: NYSTATIN SUSP 500,000 U/5 ML CUP SWISH-SWAL SCH ×2 (18:00→21:55)
[2017-08-01] MEDS ORDERED: POTASSIUM CHLORIDE 20 MEQ PWD PACKET PO ONE (20:00)
[2017-08-01] MEDS ORDERED: CHLORHEXIDINE 0.12% (ORAL KIT) 15 ML CUP MT SCH (20:00)
[2017-08-01 21:43] LABS: POTASSIUM 3.6 MEQ/L (3.5-5.1)
[2017-08-02] VITALS (19 sets, daily range): BP systolic 80–157; BP diastolic 51–82; PULSE 79–117; RESP 20–54; TEMP 99.1–101.5; O2SAT 97–100
[2017-08-02] MEDS: PIPERACIL-TAZO 4.5 GM PREMIX 100 ML IV SCH ×4 (01:13→17:04)
[2017-08-02] MEDS: ACETAMINOPHEN 650 MG/20.3 ML UDC OG-TUBE PRN ×2 (01:13→20:22)
[2017-08-02] MEDS: RESP: ALBUTEROL 2.5 MG/IPRATROPIUM 0.5 MG NEB (SCH) NEB ×4 (02:56→19:46)
[2017-08-02] MEDS: VANCOMYCIN INJ 1,000 MG in SODIUM CHLOR 0.9% 250 ML INJ 250 ML IV SCH ×2 (03:25→13:21)
--- NOTE | 2017-08-02 05:54 | RADRPT ---
EXAM DATE/TIME: 08/02/2017 04:01 [facility] COMPARISON: CHEST SINGLE AP, August 01, 2017, 4:21. INDICATIONS : Shortness of breath, possible pulmonary disease. MEDICAL HISTORY : Hypertension. Gastroesophageal reflux disease. Pancreatitis. CVA SURGICAL HISTORY : Total knee replacement, left. Total knee replacement, right. Left hip arthroplasty ENCOUNTER: Subsequent ACUITY: 1 week PAIN SCORE: Non-responsive. LOCATION: Bilateral chest FINDINGS: Endotracheal tube and nasogastric tube are stable in good position. Left base pleural-parenchymal opa city persists unchanged. Right lung remains grossly clear. Cardiac contours are stable. CONCLUSION: No significant change Franki Miller MD on August 02, 2017 at 5:53 Board Certified Radiologist. This report was verified electronically.
[2017-08-02] MEDS: INSULIN NovoLIN REGULAR SUPPLEMENTAL SCALE SQ SCH ×2 (06:00→17:00)
[2017-08-02] MEDS: ARTIFICIAL TEARS OPTH SOLN 15 ML BTL EACH EYE SCH ×3 (06:17→20:12)
[2017-08-02] MEDS: MIDAZOLAM 100 MG/100 ML INJ 100 ML IV PRN ×2 (06:18→20:11)
[2017-08-02] MEDS: BENEPROTEIN POWDER 1 PACK G-TUBE SCH ×3 (07:55→17:03)
[2017-08-02] MEDS: NYSTATIN SUSP 500,000 U/5 ML CUP SWISH-SWAL SCH ×4 (07:55→20:11)
[2017-08-02] MEDS: DOCUSATE SODIUM 100 MG/10 ML UDC PO SCH ×2 (07:55→20:11)
[2017-08-02] MEDS: SENNOSIDES SYRUP 8.8 MG/5 ML CUP PO SCH (07:55)
[2017-08-02] MEDS: LACTULOSE SYRUP 20 GM/30 ML CUP PO SCH (07:55)
[2017-08-02] MEDS: SODIUM CHLORIDE 0.9% FLUSH 10 ML FLUSH IV FLUSH SCH ×2 (07:55→20:11)
[2017-08-02] MEDS: FOLIC ACID 1 MG TAB PO SCH (07:56)
[2017-08-02] MEDS: ENOXAPARIN SODIUM 40 MG/0.4 ML SYRINGE SQ SCH (07:56)
[2017-08-02] MEDS: MULTIVITAMIN TAB PO SCH (07:56)
[2017-08-02] MEDS: LANSOPRAZOLE SOLUTAB 30 MG TAB NG SCH (07:56)
[2017-08-02] MEDS: CHLORHEXIDINE 0.12% (ORAL KIT) 15 ML CUP MT SCH ×2 (07:57→20:12)
[2017-08-02] MEDS: THIAMINE HCL 100 MG TAB PO SCH (08:19)
[2017-08-02 13:28] LABS: AUTOMATED NEUTROPHIL # 14.8 TH/MM3 (1.8-7.7); BASOPHIL # 0.1 TH/MM3 (0-0.2); BASOPHIL % 0.6 % (0.0-2.0); EOSINOPHIL # 0.3 TH/MM3 (0-0.4); EOSINOPHIL % 1.6 % (0.0-4.0); HEMATOCRIT 38.7 % (39.0-51.0); HEMO FLAGS DIFF FINAL; LYMPH % 6.3 % (9.0-44.0); LYMPHOCYTE # 1.1 TH/MM3 (1.0-4.8); MEAN CELL VOLUME 102.1 FL (80.0-100.0); MEAN CORPUSCULAR HEMOGLOBIN 33.1 PG (27.0-34.0); MEAN CORPUSCULAR HGB CONC 32.5 % (32.0-36.0); MONO % 9.1 % (0.0-8.0); NEUT % 82.4 % (16.0-70.0); PLATELET COUNT 343 TH/MM3 (150-450); RED BLOOD COUNT 3.79 MIL/MM3 (4.50-5.90)
[2017-08-02 14:00] LABS: BICARBONATE 22.3 MEQ/L (21.0-32.0); POTASSIUM 3.5 MEQ/L (3.5-5.1)
--- NOTE | 2017-08-02 14:10 | HHI.CCPN ---
Subjective Remarks/Hospital Course The patient is a 72-year-old male with past medical history of hypertension, Cerebrovascular accident, EtOH abuse who was admitted under hospitalist service on July 28 for pneumonia. The patient had chest x-ray on admission which showed left base atelectasis or consolidation, in addition to nodular areas seen at the inferior lateral right hilar region. He subsequently had CT scan of the chest which showed left greater than right bibasilar pneumonia in addition to coronary artery calcifications. The patient was placed on broad-spectrum antibiotics and bronchodilators. In addition he was on CIWA protocol given his history of EtOH use. HELICAT was called on the patient for respiratory distress. He was transferred to ICU and ABG was performed by the primary team which showed a pH of 7.37, CO2 34, pAO2 63 , bicarb of 19 and saturation 88%. When seen the patient was on non-rebreather mask unresponsive, tachypneic and tachycardiac. He was subsequently intubated by myself and placed on full mechanical ventilation. He placed on Diprivan infusion for sedation and vent synchrony. 07/31: Remains orotracheally intubated. Currently resting in bed in no acute distress on propofol drip. Subjective 08/01: Tmax 101.4. Currently 100.3. FiO2 down to 35%. Currently on Midazolam at 8 mg an hour for sedation. Positive BM yesterday. Tolerating tube feeds currently at 40 cc an hour 08/02: Tmax 101. WBC count 18, failed CPAP trial due to tachypnea. Chest x-ray continues to show left lower lobe infiltrate Objective Vital Signs Date Time Temp Pulse Resp B/P (MAP) Pulse Ox O2 Delivery O2 Flow Rate FiO2 08/02/17 12:16 100 35 08/02/17 12:00 87 08/02/17 12:00 99.9 31 157/82 (107) 07/31/17 00:10 15.00 07/30/17 20:00 Nasal Cannula Intake and Output 08/02/17 08/02/17 08/03/17 08:00 16:00 00:00 Intake Total 1741 ml 100 ml Output Total 650 ml Balance 1091 ml 100 ml Result Diagram: 08/02/17 1215 08/02/17 1215 Other Results Microbiology Date/Time Source Procedure Growth Status 07/31/17 01:05 Sputum Endotracheal Gram Stain - Final Complete 07/31/17 01:05 Sputum Endotracheal Sputum Culture - Final LIGHT GROWTH NORMAL RESPIRATORY JEFF Complete Imaging Last Impressions Chest X-Ray 08/01/17 0600 Signed Impressions: Service Date/Time: Tuesday, August 01, 2017 04:21 - CONCLUSION: Developing left lower lobe infiltrate. Endotracheal tube tip 1 cm proximal to the arnel. Eduardo Willoughby Jr., MD Liver Ultrasound 07/31/17 0000 Signed Impressions: Service Date/Time: Monday, July 31, 2017 18:09 - CONCLUSION: 1. Bilateral pleural effusion is noted. 2. Echogenic liver parenchyma characteristic of steatosis. Jeff Douglass MD Lower Extremity Ultrasound 07/28/17 0000 Signed Impressions: Service Date/Time: Friday, July 28, 2017 19:14 - CONCLUSION: No DVT. Franki Eldridge MD Chest CT 07/28/17 0000 Signed Impressions: Service Date/Time: Friday, July 28, 2017 23:40 - CONCLUSION: 1. Left greater than right bibasilar pneumonia. 2. Coronary artery calcification. Franki Moreno MD Objective Remarks GENERAL: 72-year-old male, critically ill currently orotracheally intubated SKIN: Warm and dry. HEAD: Atraumatic. Normocephalic. EYES: Pupils equal and round. No scleral icterus. No injection or drainage. ENT: No nasal bleeding or discharge. Orotracheally intubated NECK: Trachea midline. No JVD. CARDIOVASCULAR: Regular rate and rhythm. RESPIRATORY: Breath sounds are appreciated bilaterally. Bilateral course rhonchi. Tachypneic on CPAP GASTROINTESTINAL: Abdomen soft, non-tender, protuberant. Hypoactive bowel sounds are appreciated. MUSCULOSKELETAL: Extremities without significant peripheral edema. No obvious deformities. NEUROLOGICAL: Sedated on the ventilator. Withdraws to pain. Positive gag. Do not follow commands A/P Assessment and Plan Neuro/Psych: History of bilateral basal ganglia CVA EtOH Patient is currently on midazolam drip at 8 mg an hour drips for sedation/ analgesia while intubated Goal of RASS -2. Daily sedation vacation Continue thiamine 100 mg daily, folate 1 mg daily multivitamin daily Monitor for DTs CV: History of right carotid CEA 2015 Dr. Foster Hypertension Currently holding amlodipine 2.5 mill grams by mouth daily. Resume when clinically indicated Currently on D5 normal saline at 84 cc an hour Monitor goal to keep mean arterial pressure greater than 65 Resp: Acute respiratory failure secondary to pneumonia ACV 14/550/5/50. Failed spontaneous breathing trials due to tachypnea Ventilator bundle. Albuterol/hypertrophy aerosols every [address] thorax 07/28 revealed bilateral lower lobe infiltrates left greater than right. GI: Hypoalbuminemia Elevated total bilirubin Tube feeding with vital 1.5 goal 75 cc an hour per nutrition's recommendations Lansoprazole 30 mg daily for GI prophylaxis Docusate sodium/senna 1 tab twice a day for bowel regimen : Anand catheter for accurate I's and O's in a critically ill patient Endo: Sliding-scale insulin with Accu-Cheks to maintain euglycemia every 12 hours low regimen Renal: Creatinine currently within normal limits Monitor urine output Accurate I's and O's Heme: Leukocytosis Macrocytosis Monitor CBC daily. Follow trends ID: Oral thrush Pneumonia community-acquired Continue vancomycin/piperacillin/tazobactam for pneumonia Continue nystatin swish and spit 4 times a day 5 mm Pertinent cultures 07/28 and 07/31 - sputum - no growth 07/28 and 07/31 - blood cultures 2 - no growth Influenza negative -07/29 Repeat blood and sputum culture MSK: Range of motion FEN: Hypophosphatemia Hypokalemia Currently receiving 80 mEq potassium chloride. 30 mmol K-Phos. Replace electrolytes as clinically indicated Access - Utilize peripheral IV. Central line if indicated Prophylaxis GI - lansoprazole DVT - SCD/enoxaparin Critical Care: The total critical care time was 32 minutes. Time to perform other separately billable procedures was not included in the critical care time. Marciano Doan MD Aug 02, 2017 14:10
[2017-08-02] MEDS: LEVOFLOXACIN 750 MG PREMIX INJ 150 ML IV SCH (15:44)
[2017-08-03] VITALS (21 sets, daily range): BP systolic 89–146; BP diastolic 50–84; PULSE 64–100; RESP 16–27; TEMP 97.6–99; O2SAT 94–100
[2017-08-03] MEDS: PIPERACIL-TAZO 4.5 GM PREMIX 100 ML IV SCH ×4 (00:22→17:58)
[2017-08-03] MEDS: VANCOMYCIN INJ 1,000 MG in SODIUM CHLOR 0.9% 250 ML INJ 250 ML IV SCH ×2 (02:24→14:10)
[2017-08-03] MEDS: RESP: ALBUTEROL 2.5 MG/IPRATROPIUM 0.5 MG NEB (SCH) NEB ×4 (04:15→22:24)
[2017-08-03] MEDS: ARTIFICIAL TEARS OPTH SOLN 15 ML BTL EACH EYE SCH ×3 (05:42→21:50)
[2017-08-03] MEDS: MIDAZOLAM 100 MG/100 ML INJ 100 ML IV PRN ×2 (05:42→16:42)
[2017-08-03] MEDS: INSULIN NovoLIN REGULAR SUPPLEMENTAL SCALE SQ SCH ×2 (06:00→18:00)
[2017-08-03] MEDS: ENOXAPARIN SODIUM 40 MG/0.4 ML SYRINGE SQ SCH (08:15)
[2017-08-03] MEDS: NYSTATIN SUSP 500,000 U/5 ML CUP SWISH-SWAL SCH ×4 (08:15→21:50)
[2017-08-03] MEDS: DOCUSATE SODIUM 100 MG/10 ML UDC PO SCH ×2 (08:15→21:50)
[2017-08-03] MEDS: LACTULOSE SYRUP 20 GM/30 ML CUP PO SCH (08:15)
[2017-08-03] MEDS: THIAMINE HCL 100 MG TAB PO SCH (08:16)
[2017-08-03] MEDS: SODIUM CHLORIDE 0.9% FLUSH 10 ML FLUSH IV FLUSH SCH ×2 (08:16→21:50)
[2017-08-03] MEDS: CHLORHEXIDINE 0.12% (ORAL KIT) 15 ML CUP MT SCH ×2 (08:16→21:50)
[2017-08-03] MEDS: SENNOSIDES SYRUP 8.8 MG/5 ML CUP PO SCH (08:16)
[2017-08-03] MEDS: MULTIVITAMIN TAB PO SCH (08:16)
[2017-08-03] MEDS: FOLIC ACID 1 MG TAB PO SCH (08:16)
[2017-08-03] MEDS: LANSOPRAZOLE SOLUTAB 30 MG TAB NG SCH (08:16)
[2017-08-03] MEDS: BENEPROTEIN POWDER 1 PACK G-TUBE SCH ×3 (08:16→17:58)
[2017-08-03] MEDS ORDERED: BUMETANIDE INJ 1 MG/4 ML VIAL IV PUSH ONE (09:00)
[2017-08-03] MEDS ORDERED: POTASSIUM CHLORIDE 25 MEQ EFFERVESCENT TAB PO ONE (09:00)
--- NOTE | 2017-08-03 09:13 | HHI.CCPN ---
Subjective Remarks/Hospital Course The patient is a 72-year-old male with past medical history of hypertension, Cerebrovascular accident, EtOH abuse who was admitted under hospitalist service on July 28 for pneumonia. The patient had chest x-ray on admission which showed left base atelectasis or consolidation, in addition to nodular areas seen at the inferior lateral right hilar region. He subsequently had CT scan of the chest which showed left greater than right bibasilar pneumonia in addition to coronary artery calcifications. The patient was placed on broad-spectrum antibiotics and bronchodilators. In addition he was on CIWA protocol given his history of EtOH use. HELICAT was called on the patient for respiratory distress. He was transferred to ICU and ABG was performed by the primary team which showed a pH of 7.37, CO2 34, pAO2 63 , bicarb of 19 and saturation 88%. When seen the patient was on non-rebreather mask unresponsive, tachypneic and tachycardiac. He was subsequently intubated by myself and placed on full mechanical ventilation. He placed on Diprivan infusion for sedation and vent synchrony. 07/31: Remains orotracheally intubated. Currently resting in bed in no acute distress on propofol drip. Subjective 08/01: Tmax 101.4. Currently 100.3. FiO2 down to 35%. Currently on Midazolam at 8 mg an hour for sedation. Positive BM yesterday. Tolerating tube feeds currently at 40 cc an hour 08/02: Tmax 101. WBC count 18, failed CPAP trial due to tachypnea. Chest x-ray continues to show left lower lobe infiltrate 08/04: Failing CPAP due to tachypnea. Will start Precedex to facilitate weaning trials. Afebrile now. Had fever yesterday night. Cultures remain negative, new cultures from yesterday pending at this time Objective Vital Signs Date Time Temp Pulse Resp B/P (MAP) Pulse Ox O2 Delivery O2 Flow Rate FiO2 08/03/17 07:57 97 35 08/03/17 06:00 79 08/03/17 04:00 99.0 16 101/52 (68) 07/31/17 00:10 15.00 07/30/17 20:00 Nasal Cannula Intake and Output 08/03/17 08/03/17 08/04/17 08:00 16:00 00:00 Intake Total 1392 ml Output Total 1050 ml 300 ml Balance 342 ml -300 ml Result Diagram: 08/02/17 1215 08/02/17 1215 Other Results Microbiology Date/Time Source Procedure Growth Status 08/02/17 17:16 Urine Catheterized Urine Legionella Antigen - Final PRESUMPTIVE NEGATIVE FOR LEGIONELLA P... Complete 08/02/17 17:16 Urine Catheterized Urine Streptococcus pneumoniae Antigen (M - Final PRESUMPTIVE NEGATIVE FOR STREPTOCOCCU... Complete Imaging Last Impressions Chest X-Ray 08/01/17 0600 Signed Impressions: Service Date/Time: Tuesday, August 01, 2017 04:21 - CONCLUSION: Developing left lower lobe infiltrate. Endotracheal tube tip 1 cm proximal to the arnel. Eduardo Willoughby Jr., MD Liver Ultrasound 07/31/17 0000 Signed Impressions: Service Date/Time: Monday, July 31, 2017 18:09 - CONCLUSION: 1. Bilateral pleural effusion is noted. 2. Echogenic liver parenchyma characteristic of steatosis. Jeff Douglass MD Lower Extremity Ultrasound 07/28/17 0000 Signed Impressions: Service Date/Time: Friday, July 28, 2017 19:14 - CONCLUSION: No DVT. Franki Eldridge MD Chest CT 07/28/17 0000 Signed Impressions: Service Date/Time: Friday, July 28, 2017 23:40 - CONCLUSION: 1. Left greater than right bibasilar pneumonia. 2. Coronary artery calcification. Franki Moreno MD Objective Remarks GENERAL: 72-year-old male, critically ill currently orotracheally intubated SKIN: Warm and dry. HEAD: Atraumatic. Normocephalic. EYES: Pupils equal and round. No scleral icterus. No injection or drainage. ENT: No nasal bleeding or discharge. Orotracheally intubated NECK: Trachea midline. No JVD. CARDIOVASCULAR: Regular rate and rhythm. Hypertensive RESPIRATORY: Breath sounds are appreciated bilaterally. Bilateral course rhonchi. Tachypneic on attempted CPAP GASTROINTESTINAL: Abdomen soft, non-tender, protuberant. Hypoactive bowel sounds are appreciated. MUSCULOSKELETAL: Extremities without significant peripheral edema. No obvious deformities. NEUROLOGICAL: Sedated on the ventilator. Withdraws to pain. Positive gag. Do not follow commands A/P Assessment and Plan Neuro/Psych: History of bilateral basal ganglia CVA EtOH abuse Patient is currently on midazolam drip at 8 mg an hour drips for sedation/ analgesia while intubated Start Precedex to facilitate ventilator weaning. Use fentanyl when necessary Goal of RASS -2. Daily sedation vacation Continue thiamine 100 mg daily, folate 1 mg daily multivitamin daily Monitor for DTs CV: History of right carotid CEA 2015 Dr. Foster Hypertension Currently holding amlodipine 2.5 mill grams by mouth daily. Resume when clinically indicated DC IV fluids Bumex 2 mg IV x1 Monitor goal to keep mean arterial pressure greater than 65 Resp: Acute respiratory failure secondary to pneumonia ACV 14/550/5/50. Failed spontaneous breathing trials due to tachypnea, continues to fail Ventilator bundle. Albuterol/hypertrophy aerosols every [address] thorax 07/28 revealed bilateral lower lobe infiltrates left greater than right. GI: Hypoalbuminemia Elevated total bilirubin Tube feeding with vital 1.5 goal 75 cc an hour per nutrition's recommendations Lansoprazole 30 mg daily for GI prophylaxis Docusate sodium/senna 1 tab twice a day for bowel regimen : Anand catheter for accurate I's and O's in a critically ill patient Endo: Sliding-scale insulin with Accu-Cheks to maintain euglycemia every 12 hours low regimen Renal: Creatinine currently within normal limits Monitor urine output Accurate I's and O's Heme: Leukocytosis Macrocytosis Monitor CBC daily. Follow trends ID: Oral thrush Pneumonia community-acquired Continue vancomycin/piperacillin/tazobactam for pneumonia. Levaquin added 08/02/17 for atypical coverage Continue nystatin swish and spit 4 times a day 5 mm Pertinent cultures 07/28 and 07/31 - sputum - no growth 07/28 and 07/31 - blood cultures 2 - no growth Influenza negative -07/29 Repeat blood and sputum culture Urine for Legionella and pneumococcal antigen negative MSK: Range of motion FEN: Hypophosphatemia Hypokalemia Replace electrolytes as clinically indicated Access - Utilize peripheral IV. Central line if indicated Prophylaxis GI - lansoprazole DVT - SCD/enoxaparin Critical Care: The total critical care time was 30 minutes. Time to perform other separately billable procedures was not included in the critical care time. Marciano Doan MD Aug 03, 2017 09:13
[2017-08-03] MEDS: DEXMEDETOMIDINE INJ 200 MCG in SODIUM CHLORIDE 0.9% INJ 50 ML IV PRN (09:53)
[2017-08-03 13:11] LABS: AUTOMATED NEUTROPHIL # 14.1 TH/MM3 (1.8-7.7); BASOPHIL # 0.1 TH/MM3 (0-0.2); BASOPHIL % 0.5 % (0.0-2.0); EOSINOPHIL # 0.3 TH/MM3 (0-0.4); EOSINOPHIL % 1.7 % (0.0-4.0); HEMATOCRIT 39.2 % (39.0-51.0); HEMO FLAGS DIFF FINAL; LYMPH % 5.3 % (9.0-44.0); LYMPHOCYTE # 0.9 TH/MM3 (1.0-4.8); MEAN CELL VOLUME 100.6 FL (80.0-100.0); MEAN CORPUSCULAR HEMOGLOBIN 32.8 PG (27.0-34.0); MEAN CORPUSCULAR HGB CONC 32.6 % (32.0-36.0); MONO % 6.1 % (0.0-8.0); NEUT % 86.4 % (16.0-70.0); PLATELET COUNT 372 TH/MM3 (150-450); RED BLOOD COUNT 3.89 MIL/MM3 (4.50-5.90); RED CELL DISTRIBUTION WIDTH 16.4 % (11.6-17.2); WHITE BLOOD COUNT 16.4 TH/MM3 (4.0-11.0)
[2017-08-03] MEDS: LEVOFLOXACIN 750 MG PREMIX INJ 150 ML IV SCH (16:27)
[2017-08-04] VITALS (20 sets, daily range): BP systolic 90–161; BP diastolic 57–88; PULSE 65–104; RESP 18–30; TEMP 98.6–101; O2SAT 95–100
[2017-08-04] MEDS: PIPERACIL-TAZO 4.5 GM PREMIX 100 ML IV SCH ×4 (00:38→17:04)
[2017-08-04] MEDS: MIDAZOLAM 100 MG/100 ML INJ 100 ML IV PRN (02:10)
[2017-08-04] MEDS: VANCOMYCIN INJ 1,000 MG in SODIUM CHLOR 0.9% 250 ML INJ 250 ML IV SCH ×2 (02:12→13:06)
[2017-08-04] MEDS: RESP: ALBUTEROL 2.5 MG/IPRATROPIUM 0.5 MG NEB (SCH) NEB ×2 (03:19→08:24)
[2017-08-04] MEDS: ARTIFICIAL TEARS OPTH SOLN 15 ML BTL EACH EYE SCH ×3 (05:26→19:46)
[2017-08-04] MEDS: INSULIN NovoLIN REGULAR SUPPLEMENTAL SCALE SQ SCH ×2 (05:26→17:01)
[2017-08-04] MEDS: DOCUSATE SODIUM 100 MG/10 ML UDC PO SCH ×2 (08:55→19:46)
[2017-08-04] MEDS: SENNOSIDES SYRUP 8.8 MG/5 ML CUP PO SCH (08:55)
[2017-08-04] MEDS: ENOXAPARIN SODIUM 40 MG/0.4 ML SYRINGE SQ SCH (08:55)
[2017-08-04] MEDS: MULTIVITAMIN TAB PO SCH (08:55)
[2017-08-04] MEDS: NYSTATIN SUSP 500,000 U/5 ML CUP SWISH-SWAL SCH ×4 (08:55→19:46)
[2017-08-04] MEDS: FOLIC ACID 1 MG TAB PO SCH (08:55)
[2017-08-04] MEDS: CHLORHEXIDINE 0.12% (ORAL KIT) 15 ML CUP MT SCH ×2 (08:55→19:46)
[2017-08-04] MEDS: LANSOPRAZOLE SOLUTAB 30 MG TAB NG SCH (08:55)
[2017-08-04] MEDS: THIAMINE HCL 100 MG TAB PO SCH (08:55)
[2017-08-04] MEDS: LACTULOSE SYRUP 20 GM/30 ML CUP PO SCH (08:55)
[2017-08-04] MEDS: SODIUM CHLORIDE 0.9% FLUSH 10 ML FLUSH IV FLUSH SCH ×2 (08:58→19:46)
[2017-08-04] MEDS: BENEPROTEIN POWDER 1 PACK G-TUBE SCH ×3 (08:58→17:04)
[2017-08-04] MEDS: ACETAMINOPHEN 650 MG/20.3 ML UDC OG-TUBE PRN (10:00)
[2017-08-04] MEDS: DEXMEDETOMIDINE INJ 200 MCG in SODIUM CHLORIDE 0.9% INJ 50 ML IV PRN ×3 (10:04→18:02)
--- NOTE | 2017-08-04 13:47 | HHI.CCPN ---
Subjective Remarks/Hospital Course The patient is a 72-year-old male with past medical history of hypertension, Cerebrovascular accident, EtOH abuse who was admitted under hospitalist service on July 28 for pneumonia. The patient had chest x-ray on admission which showed left base atelectasis or consolidation, in addition to nodular areas seen at the inferior lateral right hilar region. He subsequently had CT scan of the chest which showed left greater than right bibasilar pneumonia in addition to coronary artery calcifications. The patient was placed on broad-spectrum antibiotics and bronchodilators. In addition he was on CIWA protocol given his history of EtOH use. HELICAT was called on the patient for respiratory distress. He was transferred to ICU and ABG was performed by the primary team which showed a pH of 7.37, CO2 34, pAO2 63 , bicarb of 19 and saturation 88%. When seen the patient was on non-rebreather mask unresponsive, tachypneic and tachycardiac. He was subsequently intubated by myself and placed on full mechanical ventilation. He placed on Diprivan infusion for sedation and vent synchrony. 07/31: Remains orotracheally intubated. Currently resting in bed in no acute distress on propofol drip. Subjective 08/01: Tmax 101.4. Currently 100.3. FiO2 down to 35%. Currently on Midazolam at 8 mg an hour for sedation. Positive BM yesterday. Tolerating tube feeds currently at 40 cc an hour 08/02: Tmax 101. WBC count 18, failed CPAP trial due to tachypnea. Chest x-ray continues to show left lower lobe infiltrate 08/03: Failing CPAP due to tachypnea. Will start Precedex to facilitate weaning trials. Afebrile now. Had fever yesterday night. Cultures remain negative, new cultures from yesterday pending at this time 08/04: Currently on Precedex; Versed infusion had just been turned off. Do not follow commands withdraws extremities. Tmax 101 Objective Vital Signs Date Time Temp Pulse Resp B/P (MAP) Pulse Ox O2 Delivery O2 Flow Rate FiO2 08/04/17 13:19 95 35 08/04/17 12:00 99.9 104 30 116/80 (92) 08/03/17 22:26 Ventilator Intake and Output 08/04/17 08/04/17 08/05/17 08:00 16:00 00:00 Intake Total 1377 ml 47 ml Output Total 1150 ml Balance 227 ml 47 ml Result Diagram: 08/03/17 1205 08/02/17 1215 Other Results Microbiology Date/Time Source Procedure Growth Status 08/02/17 17:16 Urine Catheterized Urine Legionella Antigen - Final PRESUMPTIVE NEGATIVE FOR LEGIONELLA P... Complete 08/02/17 17:16 Urine Catheterized Urine Streptococcus pneumoniae Antigen (M - Final PRESUMPTIVE NEGATIVE FOR STREPTOCOCCU... Complete Imaging Last Impressions Chest X-Ray 08/01/17 0600 Signed Impressions: Service Date/Time: Tuesday, August 01, 2017 04:21 - CONCLUSION: Developing left lower lobe infiltrate. Endotracheal tube tip 1 cm proximal to the arnel. Eduardo Willoughby Jr., MD Liver Ultrasound 07/31/17 0000 Signed Impressions: Service Date/Time: Monday, July 31, 2017 18:09 - CONCLUSION: 1. Bilateral pleural effusion is noted. 2. Echogenic liver parenchyma characteristic of steatosis. Jeff Douglass MD Lower Extremity Ultrasound 07/28/17 0000 Signed Impressions: Service Date/Time: Friday, July 28, 2017 19:14 - CONCLUSION: No DVT. Franki Eldridge MD Chest CT 07/28/17 0000 Signed Impressions: Service Date/Time: Friday, July 28, 2017 23:40 - CONCLUSION: 1. Left greater than right bibasilar pneumonia. 2. Coronary artery calcification. Franki Moreno MD Objective Remarks GENERAL: 72-year-old male, critically ill currently orotracheally intubated SKIN: Warm and dry. HEAD: Atraumatic. Normocephalic. EYES: Pupils equal and round. No scleral icterus. No injection or drainage. ENT: No nasal bleeding or discharge. Orotracheally intubated NECK: Trachea midline. No JVD. CARDIOVASCULAR: Regular rate and rhythm. Hypertensive RESPIRATORY: Breath sounds are appreciated bilaterally. Bilateral course rhonchi. Tachypneic on attempted CPAP GASTROINTESTINAL: Abdomen soft, non-tender, protuberant. Hypoactive bowel sounds are appreciated. MUSCULOSKELETAL: Extremities without significant peripheral edema. No obvious deformities. NEUROLOGICAL: Sedated on the ventilator. On sedation hold Withdraws to pain. Positive gag. Do not follow commands Urinary Catheter: Yes Assessment to: Continue A/P Assessment and Plan Neuro/Psych: History of bilateral basal ganglia CVA EtOH abuse Patient is currently on Precedex infusion. Discontinue Versed and fentanyl Use fentanyl when necessary Goal of RASS -0. Daily sedation vacation Continue thiamine 100 mg daily, folate 1 mg daily multivitamin daily Monitor for DTs CV: History of right carotid CEA 2015 Dr. Foster Hypertension Currently holding amlodipine 2.5 mill grams by mouth daily. Resume when clinically indicated DC IV fluids. Bumex 2 mg IV x1 11/04 Monitor goal to keep mean arterial pressure greater than 65 Resp: Acute respiratory failure secondary to pneumonia ACV 14/550/5/50. Failed spontaneous breathing trials due to tachypnea, continues to fail. Ventilator bundle. Albuterol/Atrovent aerosols every [address] thorax 07/28 revealed bilateral lower lobe infiltrates left greater than right. GI: Hypoalbuminemia Elevated total bilirubin Tube feeding with vital 1.5 goal 75 cc an hour per nutrition's recommendations Lansoprazole 30 mg daily for GI prophylaxis Docusate sodium/senna 1 tab twice a day for bowel regimen : Anand catheter for accurate I's and O's in a critically ill patient Endo: Sliding-scale insulin with Accu-Cheks to maintain euglycemia every 12 hours low regimen Renal: Creatinine currently within normal limits Monitor urine output Accurate I's and O's Heme: Leukocytosis Macrocytosis Monitor CBC daily. Follow trends ID: Oral thrush Pneumonia community-acquired Continue vancomycin/piperacillin/tazobactam for pneumonia. Levaquin added 08/02/17 for atypical coverage Continue nystatin swish and spit 4 times a day 5 mm Pertinent cultures 07/28 and 07/31 - sputum - no growth 07/28 and 07/31 - blood cultures 2 - no growth Influenza negative -07/29 Repeat blood and sputum culture, and negative to date Urine for Legionella and pneumococcal antigen negative MSK: Range of motion FEN: Hypophosphatemia Hypokalemia Replace electrolytes as clinically indicated Access - Utilize peripheral IV. Central line if indicated Prophylaxis GI - lansoprazole DVT - SCD/enoxaparin Critical Care: The total critical care time was 30 minutes. Time to perform other separately billable procedures was not included in the critical care time. Marciano Doan MD Aug 04, 2017 13:47
[2017-08-04] MEDS: LEVOFLOXACIN 750 MG PREMIX INJ 150 ML IV SCH (14:20)
--- NOTE | 2017-08-04 19:46 | PD.ID.CON ---
History of Present Illness Service ID Consult Requested By Dr Doan Reason for Consult PNA Primary Care Physician Unknown Diagnoses: History of Present Illness Pt sedated, intubated, on vent, uinable to provide history Hx from the chart revieed with RN 72-year-old male with past medical history of hypertension, Cerebrovascular accident, EtOH abuse was admitted on July 28 for pneumonia. (chest x- ray on admission which showed left base consolidation, and nodular areas at the inferior lateral right hilar region). CT scan of the chest which showed bibasilar pneumonia The patient was placed on broad-spectrum antibiotics (zosyn, levaquin, vancomycin) Pt developped DT and was placed on CIWA protocol On 07/31 pt went into respiratory distress, was transferred to ICU and intubated and placed on full mechanical ventilation. Reemains deply sedated Cont to have inteermittent fevers, today T max of 101 All cultures are negative including BCx 2 from admittion, BC x 2 from 07/31 and BC x 2 from yday Leg/Pneumococcus/ flu AG negative Sputum clx x 3 with normal resp jennyfer (07/28, 07/31 and 08/02) UA negative Stool 600 (on lactulose) Review of Systems ROS Limitations: Clinical Condition, Intubated, Altered Mental Status, Unresponsive Past Family Social History Allergies: Coded Allergies: No Known Allergies (Verified , 07/28/17) Past Medical History Hypertension CVA Past Surgical History Carotid endarterectomy Bilateral knee replacement Left hip replacement Active Ordered Medications Medications where reviewed in EMR Antibiotics Include: zocyn vanco levaquine Family History Mother with hypertension Father is alive in his 90's . Social History Tobacco: quit smoking about one year ago Alcohol: drinks 3 - 4 shots of vodka per day No Illicit Drugs Physical Exam Vital Signs Vital Signs Date Time Temp Pulse Resp B/P (MAP) Pulse Ox O2 Delivery O2 Flow Rate FiO2 08/04/17 18:00 65 08/04/17 16:00 100.0 68 18 90/57 (68) 97 08/04/17 16:00 35 08/04/17 16:00 68 08/04/17 15:35 100 35 08/04/17 14:00 98 08/04/17 13:19 95 35 08/04/17 12:30 95 35 08/04/17 12:00 99.9 104 30 116/80 (92) 95 10/11/17 12:00 104 08/04/17 12:00 35 08/04/17 10:20 96 35 08/04/17 10:00 102 08/04/17 08:18 100 35 08/04/17 08:00 35 08/04/17 08:00 96 08/04/17 08:00 101.0 96 22 161/88 (112) 97 08/04/17 06:00 92 08/04/17 04:10 100 35 08/04/17 04:00 98.8 94 21 151/87 (108) 98 08/04/17 04:00 35 08/04/17 04:00 94 08/04/17 02:00 90 08/04/17 00:00 96 35 08/04/17 00:00 103 08/04/17 00:00 35 08/04/17 00:00 98.6 103 20 161/85 (110) 96 08/03/17 22:26 100 Ventilator 08/03/17 22:00 98 08/03/17 20:16 96 35 08/03/17 20:00 91 08/03/17 20:00 35 08/03/17 20:00 98.4 90 26 134/83 (100) 95 Physical Exam CONSTITUTIONAL/GENERAL: This is an adequately nourished patient, in no apparent distress. Sedated on vent TUBES/LINES/DRAINS: SKIN: No jaundice, rashes, or lesions. Skin temperature appropriate. Not diaphoretic. HEAD: Atraumatic. Normocephalic. EYES: Pupils equal and round and reactive. Extraocular motions intact. No scleral icterus. No injection or drainage. Fundi not examined. ENT: Hearing not tested. Nose without bleeding or purulent drainage. oral mucosea moist without visible erythema, exudates, masses, or lesions. NECK: Trachea midline. Supple, nontender. CARDIOVASCULAR: Regular rate and rhythm without murmurs, gallops, or rubs. No JVD. Peripheral pulses symmetric. Well perused perifery RESPIRATORY/CHEST: Symmetric, respirations. Tachypneic, scattered rhonchi, wheez to auscultation. Breath sounds equal bilaterally. GASTROINTESTINAL: Abdomen soft, non-tender, nondistended. No hepato-splenomegaly , or palpable masses. No guarding. Bowel sounds present. Dignishield in place with watery yellow stool (on lactulose) GENITOURINARY: Without palpable bladder distension. Anand catheter in place with clear yellow urine MUSCULOSKELETAL: Extremities without clubbing, cyanosis, or edema. No joint tenderness or effusion noted. No calf tenderness. No mottling or clubbing. LYMPHATICS: No palpable cervical or supraclavicular adenopathy. NEUROLOGICAL: Sedated. Withdrawls to deep pain PSYCHIATRIC: Unable to assess Laboratory Laboratory Tests Test 08/04/17 14:25 Ammonia 39 Date/Time Source Procedure Growth Status 08/03/17 05:28 Blood Peripheral Aerobic Blood Culture - Preliminary NO GROWTH IN 1 DAY Resulted 08/03/17 05:28 Blood Peripheral Anaerobic Blood Culture - Preliminary NO GROWTH IN 1 DAY Resulted 08/02/17 15:22 Sputum Expectorated Sputum Gram Stain - Final Complete 08/02/17 15:22 Sputum Expectorated Sputum Sputum Culture - Final LIGHT GROWTH NORMAL RESPIRATORY JENNYFER Complete 08/02/17 17:16 Urine Catheterized Urine Legionella Antigen - Final PRESUMPTIVE NEGATIVE FOR LEGIONELLA P... Complete 08/02/17 17:16 Urine Catheterized Urine Streptococcus pneumoniae Antigen (M - Final PRESUMPTIVE NEGATIVE FOR STREPTOCOCCU... Complete Result Diagram: 08/03/17 1205 08/02/17 1215 Imaging Last Impressions Chest X-Ray 08/02/17 0600 Signed Impressions: Service Date/Time: Wednesday, August 02, 2017 04:01 - CONCLUSION: No significant change Franki Miller MD Liver Ultrasound 07/31/17 0000 Signed Impressions: Service Date/Time: Monday, July 31, 2017 18:09 - CONCLUSION: 1. Bilateral pleural effusion is noted. 2. Echogenic liver parenchyma characteristic of steatosis. Jeff Douglass MD Lower Extremity Ultrasound 07/28/17 0000 Signed Impressions: Service Date/Time: Friday, July 28, 2017 19:14 - CONCLUSION: No DVT. Franki Eldridge MD Chest CT 07/28/17 0000 Signed Impressions: Service Date/Time: Friday, July 28, 2017 23:40 - CONCLUSION: 1. Left greater than right bibasilar pneumonia. 2. Coronary artery calcification. Franki Moreno MD Assessment and Plan Assessment and Plan PNA, culture negative DT, ETOH withdrawl Acute VDRF Persistant fever dif dx include infection (PNA),vs noninfectious: ETOH withdral medications, other (DVT) Abx associated diarrhea - fu P blood clx - cont current abx - will dc meng mitchell if blood clx remain negative - nchk stool for C.diff - chk procalcitonine Radha Up MD Aug 04, 2017 19:46
[2017-08-04 22:20] LABS: C. DIFF EPI 027 PRESUMPTIVE NEGATIVE (NEGATIVE)
[2017-08-05] VITALS (42 sets, daily range): BP systolic 73–179; BP diastolic 52–87; PULSE 56–114; RESP 8–40; TEMP 97.6–100.1; O2SAT 94–100
[2017-08-05] MEDS: DEXMEDETOMIDINE INJ 200 MCG in SODIUM CHLORIDE 0.9% INJ 50 ML IV PRN ×4 (00:38→18:12)
[2017-08-05] MEDS: VANCOMYCIN INJ 1,000 MG in SODIUM CHLOR 0.9% 250 ML INJ 250 ML IV SCH ×2 (02:24→14:18)
--- NOTE | 2017-08-05 04:54 | RADRPT ---
EXAM DATE/TIME: 08/05/2017 03:26 [facility] COMPARISON: CHEST SINGLE AP, August 02, 2017, 4:01. INDICATIONS : Shortness of breath, possible pulmonary disease. MEDICAL HISTORY : Hypertension. Gastroesophageal reflux disease. Pancreatitis. CVA SURGICAL HISTORY : Total knee replacement, right. Total knee replacement, left. Left hip arthroplasty ENCOUNTER: Subsequent ACUITY: 1 week PAIN SCORE: Non-responsive. LOCATION: Bilateral chest FINDINGS: Endotracheal tube is present with tip 3-4 cm above the arnel. Nasogastric tube descends in the stoma ch. Lung volumes are diminished with mild hazy parenchymal opacity in the bases bilaterally which jamal ears to be slightly worse than on previous. Visualized cardiac contours are grossly stable. CONCLUSION: Slight interval worsening in aeration Franki Miller MD on August 05, 2017 at 4:52 Board Certified Radiologist. This report was verified electronically.
[2017-08-05] MEDS: ARTIFICIAL TEARS OPTH SOLN 15 ML BTL EACH EYE SCH ×3 (05:33→20:55)
[2017-08-05] MEDS: INSULIN NovoLIN REGULAR SUPPLEMENTAL SCALE SQ SCH ×2 (05:33→17:53)
[2017-08-05] MEDS: PIPERACIL-TAZO 4.5 GM PREMIX 100 ML IV SCH ×4 (05:33→17:31)
[2017-08-05] MEDS: DOCUSATE SODIUM 100 MG/10 ML UDC PO SCH ×2 (07:57→20:54)
[2017-08-05] MEDS: LANSOPRAZOLE SOLUTAB 30 MG TAB NG SCH (07:57)
[2017-08-05] MEDS: THIAMINE HCL 100 MG TAB PO SCH (07:57)
[2017-08-05] MEDS: NYSTATIN SUSP 500,000 U/5 ML CUP SWISH-SWAL SCH ×4 (07:57→20:55)
[2017-08-05] MEDS: ENOXAPARIN SODIUM 40 MG/0.4 ML SYRINGE SQ SCH (07:57)
[2017-08-05] MEDS: FOLIC ACID 1 MG TAB PO SCH (07:57)
[2017-08-05] MEDS: LACTULOSE SYRUP 20 GM/30 ML CUP PO SCH (07:57)
[2017-08-05] MEDS: CHLORHEXIDINE 0.12% (ORAL KIT) 15 ML CUP MT SCH ×2 (08:17→20:54)
[2017-08-05] MEDS: SODIUM CHLORIDE 0.9% FLUSH 10 ML FLUSH IV FLUSH SCH ×2 (08:17→20:54)
[2017-08-05] MEDS: MULTIVITAMIN TAB PO SCH (08:18)
[2017-08-05] MEDS: SENNOSIDES SYRUP 8.8 MG/5 ML CUP PO SCH (08:18)
[2017-08-05] MEDS: BENEPROTEIN POWDER 1 PACK G-TUBE SCH ×3 (08:39→17:31)
[2017-08-05 08:45] LABS: AUTOMATED NEUTROPHIL # 16.6 TH/MM3 (1.8-7.7); BASOPHIL # 0.1 TH/MM3 (0-0.2); BASOPHIL % 0.4 % (0.0-2.0); EOSINOPHIL # 0.6 TH/MM3 (0-0.4); EOSINOPHIL % 3.3 % (0.0-4.0); HEMATOCRIT 36.4 % (39.0-51.0); HEMO FLAGS DIFF FINAL; LYMPH % 5.3 % (9.0-44.0); MEAN CELL VOLUME 101.6 FL (80.0-100.0); MEAN CORPUSCULAR HEMOGLOBIN 33.3 PG (27.0-34.0); MEAN CORPUSCULAR HGB CONC 32.8 % (32.0-36.0); MONO % 6.1 % (0.0-8.0); NEUT % 84.9 % (16.0-70.0); PLATELET COUNT 427 TH/MM3 (150-450); RED BLOOD COUNT 3.58 MIL/MM3 (4.50-5.90); RED CELL DISTRIBUTION WIDTH 16.9 % (11.6-17.2); WHITE BLOOD COUNT 19.5 TH/MM3 (4.0-11.0)
--- NOTE | 2017-08-05 08:54 | HHI.CCPN ---
Subjective Remarks/Hospital Course The patient is a 72-year-old male with past medical history of hypertension, Cerebrovascular accident, EtOH abuse who was admitted under hospitalist service on July 28 for pneumonia. The patient had chest x-ray on admission which showed left base atelectasis or consolidation, in addition to nodular areas seen at the inferior lateral right hilar region. He subsequently had CT scan of the chest which showed left greater than right bibasilar pneumonia in addition to coronary artery calcifications. The patient was placed on broad-spectrum antibiotics and bronchodilators. In addition he was on CIWA protocol given his history of EtOH use. HELICAT was called on the patient for respiratory distress. He was transferred to ICU and ABG was performed by the primary team which showed a pH of 7.37, CO2 34, pAO2 63 , bicarb of 19 and saturation 88%. When seen the patient was on non-rebreather mask unresponsive, tachypneic and tachycardiac. He was subsequently intubated by myself and placed on full mechanical ventilation. He placed on Diprivan infusion for sedation and vent synchrony. 07/31: Remains orotracheally intubated. Currently resting in bed in no acute distress on propofol drip. Subjective 08/01: Tmax 101.4. Currently 100.3. FiO2 down to 35%. Currently on Midazolam at 8 mg an hour for sedation. Positive BM yesterday. Tolerating tube feeds currently at 40 cc an hour 08/02: Tmax 101. WBC count 18, failed CPAP trial due to tachypnea. Chest x-ray continues to show left lower lobe infiltrate 08/03: Failing CPAP due to tachypnea. Will start Precedex to facilitate weaning trials. Afebrile now. Had fever yesterday night. Cultures remain negative, new cultures from yesterday pending at this time 08/04: Currently on Precedex; Versed infusion had just been turned off. Do not follow commands withdraws extremities. Tmax 101 08/05: Patient is on Precedex, currently held. He is following commands 4. Mild to moderate secretions from ET tube. Fever trending down Objective Vital Signs Date Time Temp Pulse Resp B/P (MAP) Pulse Ox O2 Delivery O2 Flow Rate FiO2 08/05/17 06:00 63 08/05/17 04:44 94 35 08/05/17 04:00 98.6 22 91/61 (71) 08/04/17 21:25 Ventilator Intake and Output 08/05/17 08/05/17 08/05/17 07:59 15:59 23:59 Intake Total 1317 ml Output Total 850 ml Balance 467 ml Result Diagram: 08/03/17 1205 08/02/17 1215 Other Results Microbiology Date/Time Source Procedure Growth Status 08/02/17 15:22 Sputum Expectorated Sputum Gram Stain - Final Complete 08/02/17 15:22 Sputum Expectorated Sputum Sputum Culture - Final LIGHT GROWTH NORMAL RESPIRATORY JEFF Complete 08/02/17 17:16 Urine Catheterized Urine Legionella Antigen - Final PRESUMPTIVE NEGATIVE FOR LEGIONELLA P... Complete 08/02/17 17:16 Urine Catheterized Urine Streptococcus pneumoniae Antigen (M - Final PRESUMPTIVE NEGATIVE FOR STREPTOCOCCU... Complete Imaging Last Impressions Chest X-Ray 08/01/17 0600 Signed Impressions: Service Date/Time: Tuesday, August 01, 2017 04:21 - CONCLUSION: Developing left lower lobe infiltrate. Endotracheal tube tip 1 cm proximal to the arnel. Eduardo Willoughby Jr., MD Liver Ultrasound 07/31/17 0000 Signed Impressions: Service Date/Time: Monday, July 31, 2017 18:09 - CONCLUSION: 1. Bilateral pleural effusion is noted. 2. Echogenic liver parenchyma characteristic of steatosis. Jeff Douglass MD Lower Extremity Ultrasound 07/28/17 0000 Signed Impressions: Service Date/Time: Friday, July 28, 2017 19:14 - CONCLUSION: No DVT. Franki Eldridge MD Chest CT 07/28/17 0000 Signed Impressions: Service Date/Time: Friday, July 28, 2017 23:40 - CONCLUSION: 1. Left greater than right bibasilar pneumonia. 2. Coronary artery calcification. Franki Moreno MD Objective Remarks GENERAL: 72-year-old male, critically ill currently orotracheally intubated SKIN: Warm and dry. HEAD: Atraumatic. Normocephalic. EYES: Pupils equal and round. No scleral icterus. No injection or drainage. ENT: No nasal bleeding or discharge. Orotracheally intubated NECK: Trachea midline. No JVD. CARDIOVASCULAR: Regular rate and rhythm. No murmurs RESPIRATORY: Breath sounds are appreciated bilaterally. Bilateral course rhonchi, overall diminished breath sounds. Tachypneic GASTROINTESTINAL: Abdomen soft, non-tender, protuberant. Hypoactive bowel sounds are appreciated. MUSCULOSKELETAL: Extremities without significant peripheral edema. No obvious deformities. NEUROLOGICAL: On sedation hold Withdraws to pain, following commands x4 today. Positive gag. Do not follow commands A/P Assessment and Plan Neuro/Psych: History of bilateral basal ganglia CVA EtOH abuse Patient is currently on Precedex infusion. Held for neuro exam Use fentanyl when necessary. Goal of RASS -0. Daily sedation vacation Continue thiamine 100 mg daily, folate 1 mg daily multivitamin daily Monitor for DTs post extubation CV: History of right carotid CEA 2015 Dr. Foster Hypertension Currently holding amlodipine 2.5 mill grams by mouth daily. Resume when clinically indicated DC IV fluids. Bumex 2 mg IV x1 11/04, 1 mg IV x1 today Monitor goal to keep mean arterial pressure greater than 65 Resp: Acute respiratory failure secondary to pneumonia Probable COPD ACV 14/550/5/50. Tolerating SBT slightly better today Will attempt extubation to BiPAP today 08/05/17 Ventilator bundle. Albuterol/Atrovent aerosols every 6 hours scheduled and when necessary IV Solu-Medrol 125 mg 1, and [address] thorax 07/28 revealed bilateral lower lobe infiltrates left greater than right. ABX as below GI: Hypoalbuminemia Elevated total bilirubin Tube feeding with vital 1.5 Lansoprazole 30 mg daily for GI prophylaxis Docusate sodium/senna 1 tab twice a day for bowel regimen : Strict I's and O's in a critically ill patient Endo: Sliding-scale insulin with Accu-Cheks to maintain euglycemia every 12 hours low regimen Renal: Creatinine currently within normal limits Monitor urine output Accurate I's and O's Heme: Leukocytosis Macrocytosis Monitor CBC daily. Follow trends ID: Oral thrush Pneumonia community-acquired Continue piperacillin/tazobactam and Levaquin for pneumonia. Vanc DCd by ID 08/04 Continue nystatin swish and spit 4 times a day 5 mm Pertinent cultures 07/28 and 07/31 - sputum - no growth 07/28 and 07/31 - blood cultures 2 - no growth Influenza negative -07/29 Repeat blood and sputum culture, and negative to date Urine for Legionella and pneumococcal antigen negative MSK: Range of motion FEN: Hypophosphatemia Hypokalemia Replace electrolytes as clinically indicated Access - Utilize peripheral IV. Central line if indicated Prophylaxis GI - lansoprazole DVT - SCD/enoxaparin Critical Care: The total critical care time was 30 minutes. Time to perform other separately billable procedures was not included in the critical care time. Marciano Doan MD Aug 05, 2017 08:54
[2017-08-05] MEDS ORDERED: BUMETANIDE INJ 1 MG/4 ML VIAL IV PUSH ONE (09:00)
[2017-08-05] MEDS ORDERED: POTASSIUM CHLORIDE 25 MEQ EFFERVESCENT TAB PO ONE (09:00)
[2017-08-05 09:25] LABS: ALKALINE PHOSPHATASE 154 U/L (45-117); ALT (GPT) 41 U/L (12-78); ANION GAP 9 MEQ/L (5-15); AST (GOT) 44 U/L (15-37); BICARBONATE 24.7 MEQ/L (21.0-32.0); BLOOD UREA NITROGEN 18 MG/DL (7-18); CHLORIDE 102 MEQ/L (98-107); GLOMERULAR FILTRATION RATE 88 ML/MIN (>89); MAGNESIUM 2.2 MG/DL (1.5-2.5); POTASSIUM 3.6 MEQ/L (3.5-5.1); SODIUM (NA) 136 MEQ/L (136-145); TOTAL BILIRUBIN ADULT 0.4 MG/DL (0.2-1.0)
[2017-08-05] MEDS ORDERED: methylPREDNISolone SOD SUCC 125 MG/2 ML VIAL IV PUSH ONE (10:30)
[2017-08-05 12:43] LABS: ALKALINE PHOSPHATASE 169 U/L (45-117); ALT (GPT) 50 U/L (12-78); ANION GAP 7 MEQ/L (5-15); AST (GOT) 52 U/L (15-37); BICARBONATE 25.7 MEQ/L (21.0-32.0); BLOOD UREA NITROGEN 21 MG/DL (7-18); CHLORIDE 106 MEQ/L (98-107); GLOMERULAR FILTRATION RATE 69 ML/MIN (>89); POTASSIUM 4.4 MEQ/L (3.5-5.1); SODIUM (NA) 139 MEQ/L (136-145); TOTAL BILIRUBIN ADULT 0.4 MG/DL (0.2-1.0)
[2017-08-05] MEDS: LEVOFLOXACIN 750 MG PREMIX INJ 150 ML IV SCH (14:18)
[2017-08-05] MEDS: RESP: ALBUTEROL 2.5 MG/IPRATROPIUM 0.5 MG NEB (SCH) NEB ×2 (16:14→20:30)
[2017-08-05] MEDS: methylPREDNISolone SOD SUCC 125 MG/2 ML VIAL IV PUSH SCH (17:30)
[2017-08-06] VITALS (43 sets, daily range): BP systolic 118–220; BP diastolic 66–107; PULSE 59–100; RESP 8–23; TEMP 97.4–98.4; O2SAT 89–100
[2017-08-06] MEDS: PIPERACIL-TAZO 4.5 GM PREMIX 100 ML IV SCH ×4 (00:37→16:34)
[2017-08-06] MEDS: DEXMEDETOMIDINE INJ 200 MCG in SODIUM CHLORIDE 0.9% INJ 50 ML IV PRN ×4 (01:36→20:08)
[2017-08-06] MEDS: VANCOMYCIN INJ 1,000 MG in SODIUM CHLOR 0.9% 250 ML INJ 250 ML IV SCH ×2 (02:25→13:01)
[2017-08-06] MEDS: RESP: ALBUTEROL 2.5 MG/IPRATROPIUM 0.5 MG NEB (SCH) NEB ×4 (03:53→20:12)
--- NOTE | 2017-08-06 05:12 | RADRPT ---
EXAM DATE/TIME: 08/06/2017 04:05 [facility] COMPARISON: CHEST SINGLE AP, August 05, 2017, 3:26. INDICATIONS : Evaluate for respiratory disease. MEDICAL HISTORY : Hypertension. Gastroesophageal reflux disease. Pancreatitis. CVA SURGICAL HISTORY : Total knee replacement, right. Total knee replacement, left. Left hip arthroplasty. ENCOUNTER: Subsequent ACUITY: 1 week PAIN SCORE: Non-responsive. LOCATION: chest FINDINGS: A single view of the chest demonstrates endotracheal tube in good position. Nasogastric tube enters s tomach. Mild subsegmental basilar airspace disease. No pneumothorax. CONCLUSION: 1. Subsegmental atelectasis at the bases. Endotracheal tube and nasogastric tube in satisfactory posi tion. Clarence Donis MD on August 06, 2017 at 5:09 Board Certified Radiologist. This report was verified electronically.
[2017-08-06] MEDS: ARTIFICIAL TEARS OPTH SOLN 15 ML BTL EACH EYE SCH ×3 (06:07→21:34)
[2017-08-06] MEDS: methylPREDNISolone SOD SUCC 125 MG/2 ML VIAL IV PUSH SCH ×2 (06:07→16:33)
[2017-08-06] MEDS: INSULIN NovoLIN REGULAR SUPPLEMENTAL SCALE SQ SCH ×2 (06:12→17:51)
[2017-08-06 07:18] LABS: AUTOMATED NEUTROPHIL # 15.3 TH/MM3 (1.8-7.7); BASOPHIL % 0.2 % (0.0-2.0); HEMATOCRIT 35.7 % (39.0-51.0); HEMO FLAGS DIFF FINAL; LYMPH % 4.1 % (9.0-44.0); LYMPHOCYTE # 0.7 TH/MM3 (1.0-4.8); MEAN CELL VOLUME 100.7 FL (80.0-100.0); MEAN CORPUSCULAR HEMOGLOBIN 33.5 PG (27.0-34.0); MEAN CORPUSCULAR HGB CONC 33.2 % (32.0-36.0); MONO % 6.8 % (0.0-8.0); NEUT % 88.9 % (16.0-70.0); PLATELET COUNT 425 TH/MM3 (150-450); RED BLOOD COUNT 3.55 MIL/MM3 (4.50-5.90); RED CELL DISTRIBUTION WIDTH 16.7 % (11.6-17.2); WHITE BLOOD COUNT 17.2 TH/MM3 (4.0-11.0)
[2017-08-06] MEDS: SENNOSIDES SYRUP 8.8 MG/5 ML CUP PO SCH (08:17)
[2017-08-06] MEDS: DOCUSATE SODIUM 100 MG/10 ML UDC PO SCH ×2 (08:17→20:07)
[2017-08-06] MEDS: LACTULOSE SYRUP 20 GM/30 ML CUP PO SCH (08:17)
[2017-08-06] MEDS: THIAMINE HCL 100 MG TAB PO SCH (08:17)
[2017-08-06] MEDS: ENOXAPARIN SODIUM 40 MG/0.4 ML SYRINGE SQ SCH (08:18)
[2017-08-06] MEDS: MULTIVITAMIN TAB PO SCH (08:18)
[2017-08-06] MEDS: LANSOPRAZOLE SOLUTAB 30 MG TAB NG SCH (08:18)
[2017-08-06] MEDS: FOLIC ACID 1 MG TAB PO SCH (08:18)
--- NOTE | 2017-08-06 08:27 | HHI.CCPN ---
Subjective Remarks/Hospital Course The patient is a 72-year-old male with past medical history of hypertension, Cerebrovascular accident, EtOH abuse who was admitted under hospitalist service on July 28 for pneumonia. The patient had chest x-ray on admission which showed left base atelectasis or consolidation, in addition to nodular areas seen at the inferior lateral right hilar region. He subsequently had CT scan of the chest which showed left greater than right bibasilar pneumonia in addition to coronary artery calcifications. The patient was placed on broad-spectrum antibiotics and bronchodilators. In addition he was on CIWA protocol given his history of EtOH use. HELICAT was called on the patient for respiratory distress. He was transferred to ICU and ABG was performed by the primary team which showed a pH of 7.37, CO2 34, pAO2 63 , bicarb of 19 and saturation 88%. When seen the patient was on non-rebreather mask unresponsive, tachypneic and tachycardiac. He was subsequently intubated by myself and placed on full mechanical ventilation. He placed on Diprivan infusion for sedation and vent synchrony. 07/31: Remains orotracheally intubated. Currently resting in bed in no acute distress on propofol drip. Subjective 08/01: Tmax 101.4. Currently 100.3. FiO2 down to 35%. Currently on Midazolam at 8 mg an hour for sedation. Positive BM yesterday. Tolerating tube feeds currently at 40 cc an hour 08/02: Tmax 101. WBC count 18, failed CPAP trial due to tachypnea. Chest x-ray continues to show left lower lobe infiltrate 08/03: Failing CPAP due to tachypnea. Will start Precedex to facilitate weaning trials. Afebrile now. Had fever yesterday night. Cultures remain negative, new cultures from yesterday pending at this time 08/04: Currently on Precedex; Versed infusion had just been turned off. Do not follow commands withdraws extremities. Tmax 101 08/05: Patient is on Precedex, currently held. He is following commands 4. Mild to moderate secretions from ET tube. Fever trending down 08/06: More awake alert, placed on CPAP tolerating. No fever. CXR-mild atelectasis. Remains on low dose Precedex. Objective Vital Signs Date Time Temp Pulse Resp B/P (MAP) Pulse Ox O2 Delivery O2 Flow Rate FiO2 08/06/17 06:00 77 08/06/17 04:24 98 35 08/06/17 04:00 97.8 21 142/75 (97) 08/05/17 11:04 Ventilator Intake and Output 08/06/17 08/06/17 08/06/17 07:59 15:59 23:59 Intake Total 1261 ml Output Total 1350 ml Balance -89 ml Result Diagram: 08/06/17 0634 08/05/17 1125 Imaging Last Impressions Chest X-Ray 08/01/17 0600 Signed Impressions: Service Date/Time: Tuesday, August 01, 2017 04:21 - CONCLUSION: Developing left lower lobe infiltrate. Endotracheal tube tip 1 cm proximal to the arnel. Eduardo Willoughby Jr., MD Liver Ultrasound 07/31/17 0000 Signed Impressions: Service Date/Time: Monday, July 31, 2017 18:09 - CONCLUSION: 1. Bilateral pleural effusion is noted. 2. Echogenic liver parenchyma characteristic of steatosis. Jeff Douglass MD Lower Extremity Ultrasound 07/28/17 0000 Signed Impressions: Service Date/Time: Friday, July 28, 2017 19:14 - CONCLUSION: No DVT. Franki Eldridge MD Chest CT 07/28/17 0000 Signed Impressions: Service Date/Time: Friday, July 28, 2017 23:40 - CONCLUSION: 1. Left greater than right bibasilar pneumonia. 2. Coronary artery calcification. Franki Moreno MD Objective Remarks GENERAL: 72-year-old male,currently orotracheally intubated awake following commands SKIN: Warm and dry. HEAD: Atraumatic. Normocephalic. EYES: Pupils equal and round. No scleral icterus. No injection or drainage. ENT: No nasal bleeding or discharge. Orotracheally intubated NECK: Trachea midline. No JVD. CARDIOVASCULAR: Regular rate and rhythm. No murmurs RESPIRATORY: Breath sounds are appreciated bilaterally. Few course rhonchi, overall diminished breath sounds. GASTROINTESTINAL: Abdomen soft, non-tender, protuberant. Hypoactive bowel sounds are appreciated. MUSCULOSKELETAL: Extremities without significant peripheral edema. No obvious deformities. NEUROLOGICAL: Alert awake, following commands. Tolerating CPAP A/P Assessment and Plan Neuro/Psych: History of bilateral basal ganglia CVA EtOH abuse Patient is currently on Precedex infusion. Use fentanyl when necessary. Goal of RASS -0. Continue thiamine 100 mg daily, folate 1 mg daily multivitamin daily Monitor for DTs post extubation CV: History of right carotid CEA 2015 Dr. Foster Hypertension Currently holding amlodipine 2.5 mill grams by mouth daily. Resume when clinically indicated Bumex 2 mg IV x1 11/04, 1 mg IV x1 08/05, 101/3 Monitor goal to keep mean arterial pressure greater than 65 Resp: Acute respiratory failure secondary to pneumonia Probable COPD ACV 14/550/5/50. Tolerating SBT better today. Extubate today Albuterol/Atrovent aerosols every 6 hours scheduled and when necessary IV Solu-Medrol 125 mg 1, and 60 mg IV q12 started 08/05/17 EzPAP, Acapella post extubation. BiPAP as needed CT thorax 07/28 revealed bilateral lower lobe infiltrates left greater than right. ABX as below GI: Hypoalbuminemia Elevated total bilirubin Tube feeding with vital 1.5 Lansoprazole 30 mg daily for GI prophylaxis Docusate sodium/senna 1 tab twice a day for bowel regimen : Strict I's and O's in a critically ill patient Bumex as above Endo: Sliding-scale insulin with Accu-Cheks to maintain euglycemia every 12 hours low regimen Renal: Creatinine currently within normal limits Monitor urine output Accurate I's and O's Heme: Leukocytosis Macrocytosis Monitor CBC daily. Follow trends ID: Oral thrush Pneumonia community-acquired Continue piperacillin/tazobactam and Levaquin for pneumonia. Vanc DCd by ID 08/04 Continue nystatin swish and spit 4 times a day 5 mm Pertinent cultures 07/28 and 07/31 - sputum - no growth 07/28 and 07/31 - blood cultures 2 - no growth Influenza negative -07/29 Repeat blood and sputum culture, and negative to date Urine for Legionella and pneumococcal antigen negative MSK: Range of motion FEN: Hypophosphatemia Hypokalemia Replace electrolytes as clinically indicated Access - Utilize peripheral IV. Central line if indicated Prophylaxis GI - lansoprazole DVT - SCD/enoxaparin Critical Care: Level 3. Clinically improving. Extubate today Marciano Doan MD Aug 06, 2017 08:27
[2017-08-06] MEDS ORDERED: BUMETANIDE INJ 1 MG/4 ML VIAL IV PUSH ONE (08:30)
[2017-08-06 08:36] LABS: ALKALINE PHOSPHATASE 140 U/L (45-117); ALT (GPT) 38 U/L (12-78); AST (GOT) 28 U/L (15-37); BLOOD UREA NITROGEN 25 MG/DL (7-18); GLOMERULAR FILTRATION RATE 80 ML/MIN (>89)
[2017-08-06 08:37] LABS: ANION GAP 7 MEQ/L (5-15); BICARBONATE 25.6 MEQ/L (21.0-32.0); CHLORIDE 107 MEQ/L (98-107); POTASSIUM 3.6 MEQ/L (3.5-5.1); SODIUM (NA) 140 MEQ/L (136-145); TOTAL BILIRUBIN ADULT 0.3 MG/DL (0.2-1.0)
[2017-08-06] MEDS: BENEPROTEIN POWDER 1 PACK G-TUBE SCH ×3 (09:00→16:34)
[2017-08-06] MEDS: NYSTATIN SUSP 500,000 U/5 ML CUP SWISH-SWAL SCH ×5 (09:00→21:34)
[2017-08-06] MEDS: SODIUM CHLORIDE 0.9% FLUSH 10 ML FLUSH IV FLUSH SCH ×2 (09:02→20:07)
[2017-08-06] MEDS: CHLORHEXIDINE 0.12% (ORAL KIT) 15 ML CUP MT SCH ×2 (09:02→20:00)
[2017-08-06] MEDS: LEVOFLOXACIN 750 MG PREMIX INJ 150 ML IV SCH (13:04)
--- NOTE | 2017-08-06 16:57 | HHI.PR ---
Addendum to Inpatient Note Additional Information pt seen around 1500 full note to follow Radha Up MD Aug 06, 2017 16:57
--- NOTE | 2017-08-06 20:13 | HHI.IDPN ---
Subjective Subjective Remarks Pt extubated and is doing well he is afebrile BP high Antibiotics zosyn Allergies: Coded Allergies: No Known Allergies (Verified , 07/28/17) Objective . Vital Signs Date Time Temp Pulse Resp B/P (MAP) Pulse Ox O2 Delivery O2 Flow Rate FiO2 08/06/17 18:00 84 08/06/17 18:00 84 21 96 08/06/17 17:07 93 23 171/83 (112) 89 08/06/17 17:07 93 08/06/17 17:00 96 21 186/94 (124) 95 08/06/17 17:00 96 08/06/17 16:36 83 11 167/83 (111) 100 08/06/17 16:36 83 08/06/17 16:30 84 08/06/17 16:30 84 8 191/96 (127) 100 08/06/17 16:06 89 12 199/98 (131) 97 08/06/17 16:06 89 08/06/17 16:01 86 08/06/17 16:01 86 14 220/107 (144) 97 08/06/17 16:00 88 16 97 08/06/17 16:00 88 08/06/17 15:55 77 08/06/17 15:30 80 08/06/17 15:00 79 08/06/17 14:52 80 08/06/17 14:31 87 08/06/17 14:00 83 08/06/17 12:00 98.4 08/06/17 12:00 89 08/06/17 11:45 87 08/06/17 11:39 83 08/06/17 11:30 88 08/06/17 11:15 83 08/06/17 11:00 84 08/06/17 10:45 97 08/06/17 10:30 94 08/06/17 10:15 99 08/06/17 10:00 100 08/06/17 09:45 93 08/06/17 09:30 97 08/06/17 09:15 96 08/06/17 09:00 86 08/06/17 08:55 95 08/06/17 08:55 97 Nasal Cannula 4.00 08/06/17 08:55 97 Nasal Cannula 4 08/06/17 08:45 96 08/06/17 08:31 92 08/06/17 08:30 91 08/06/17 08:15 79 08/06/17 08:00 35 08/06/17 08:00 97.4 08/06/17 08:00 60 08/06/17 06:00 77 08/06/17 04:24 98 35 08/06/17 04:00 62 08/06/17 04:00 97.8 62 21 142/75 (97) 100 08/06/17 04:00 35 08/06/17 02:00 68 08/06/17 01:19 98 35 08/06/17 00:00 59 08/06/17 00:00 35 08/06/17 00:00 98.0 59 18 118/66 (83) 96 08/05/17 22:25 96 35 08/05/17 22:00 57 08/05/17 20:30 35 08/05/17 20:27 100 35 08/06/17 08/06/17 08/07/17 15:00 23:00 07:00 Intake Total 420 ml Output Total 2300 ml Balance -1880 ml Intake Oral 420 ml Output Urine Total 1600 ml Stool Total 700 ml . Laboratory Tests Test 08/05/17 05:31 08/06/17 06:34 White Blood Count 19.5 TH/MM3 17.2 TH/MM3 Red Blood Count 3.58 MIL/MM3 3.55 MIL/MM3 Hemoglobin 11.9 GM/DL 11.9 GM/DL Hematocrit 36.4 % 35.7 % Mean Corpuscular Volume 101.6 FL 100.7 FL Mean Corpuscular Hemoglobin 33.3 PG 33.5 PG Mean Corpuscular Hemoglobin Concent 32.8 % 33.2 % Red Cell Distribution Width 16.9 % 16.7 % Platelet Count 427 TH/MM3 425 TH/MM3 Mean Platelet Volume 8.7 FL 8.7 FL Neutrophils (%) (Auto) 84.9 % 88.9 % Lymphocytes (%) (Auto) 5.3 % 4.1 % Monocytes (%) (Auto) 6.1 % 6.8 % Eosinophils (%) (Auto) 3.3 % 0.0 % Basophils (%) (Auto) 0.4 % 0.2 % Neutrophils # (Auto) 16.6 TH/MM3 15.3 TH/MM3 Lymphocytes # (Auto) 1.0 TH/MM3 0.7 TH/MM3 Monocytes # (Auto) 1.2 TH/MM3 1.2 TH/MM3 Eosinophils # (Auto) 0.6 TH/MM3 0.0 TH/MM3 Basophils # (Auto) 0.1 TH/MM3 0.0 TH/MM3 CBC Comment DIFF FINAL DIFF FINAL Differential Comment Laboratory Tests Test 08/05/17 05:59 08/05/17 11:25 08/06/17 06:34 Blood Urea Nitrogen 18 MG/DL 21 MG/DL 25 MG/DL Creatinine 0.85 MG/DL 1.05 MG/DL 0.92 MG/DL Random Glucose 102 MG/DL 106 MG/DL 193 MG/DL Total Protein 7.2 GM/DL 8.0 GM/DL 7.3 GM/DL Albumin 1.7 GM/DL 1.9 GM/DL 1.8 GM/DL Calcium Level 8.6 MG/DL 9.0 MG/DL 8.7 MG/DL Magnesium Level 2.2 MG/DL Alkaline Phosphatase 154 U/L 169 U/L 140 U/L Aspartate Amino Transf (AST/SGOT) 44 U/L 52 U/L 28 U/L Alanine Aminotransferase (ALT/SGPT) 41 U/L 50 U/L 38 U/L Total Bilirubin 0.4 MG/DL 0.4 MG/DL 0.3 MG/DL Sodium Level 136 MEQ/L 139 MEQ/L 140 MEQ/L Potassium Level 3.6 MEQ/L 4.4 MEQ/L 3.6 MEQ/L Chloride Level 102 MEQ/L 106 MEQ/L 107 MEQ/L Carbon Dioxide Level 24.7 MEQ/L 25.7 MEQ/L 25.6 MEQ/L Anion Gap 9 MEQ/L 7 MEQ/L 7 MEQ/L Estimat Glomerular Filtration Rate 88 ML/MIN 69 ML/MIN 80 ML/MIN Procalcitonin 0.13 ng/mL Imaging Last Impressions Chest X-Ray 08/06/17 0600 Signed Impressions: Service Date/Time: Sunday, August 06, 2017 04:05 - CONCLUSION: 1. Subsegmental atelectasis at the bases. Endotracheal tube and nasogastric tube in satisfactory position. Clarence Donis MD Liver Ultrasound 07/31/17 0000 Signed Impressions: Service Date/Time: Monday, July 31, 2017 18:09 - CONCLUSION: 1. Bilateral pleural effusion is noted. 2. Echogenic liver parenchyma characteristic of steatosis. Jeff Douglass MD Lower Extremity Ultrasound 07/28/17 0000 Signed Impressions: Service Date/Time: Friday, July 28, 2017 19:14 - CONCLUSION: No DVT. Franki Eldridge MD Chest CT 07/28/17 0000 Signed Impressions: Service Date/Time: Friday, July 28, 2017 23:40 - CONCLUSION: 1. Left greater than right bibasilar pneumonia. 2. Coronary artery calcification. Franki Moreno MD Physical Exam CONSTITUTIONAL/GENERAL: This is an adequately nourished patient, in no apparent distress. Sedated on vent TUBES/LINES/DRAINS: SKIN: No jaundice, rashes, or lesions. Skin temperature appropriate. Not diaphoretic. HEAD: Atraumatic. Normocephalic. EYES: Pupils equal and round and reactive. Extraocular motions intact. No scleral icterus. No injection or drainage. Fundi not examined. ENT: Hearing not tested. Nose without bleeding or purulent drainage. oral mucosea moist without visible erythema, exudates, masses, or lesions. NECK: Trachea midline. Supple, nontender. CARDIOVASCULAR: Regular rate and rhythm without murmurs, gallops, or rubs. No JVD. Peripheral pulses symmetric. Well perused perifery RESPIRATORY/CHEST: Symmetric, respirations. Tachypneic, scattered rhonchi, wheez to auscultation. Breath sounds equal bilaterally. GASTROINTESTINAL: Abdomen soft, non-tender, nondistended. No hepato-splenomegaly , or palpable masses. No guarding. Bowel sounds present. Dignishield in place with watery yellow stool (on lactulose) GENITOURINARY: Without palpable bladder distension. Annad catheter in place with clear yellow urine MUSCULOSKELETAL: Extremities without clubbing, cyanosis, or edema. No joint tenderness or effusion noted. No calf tenderness. No mottling or clubbing. LYMPHATICS: No palpable cervical or supraclavicular adenopathy. NEUROLOGICAL: Sedated. Withdrawls to deep pain PSYCHIATRIC: Unable to assess Laboratory Laboratory Tests Test 08/04/17 14:25 Ammonia 39 Date/Time Source Procedure Growth Status 08/03/17 05:28 Blood Peripheral Aerobic Blood Culture - Preliminary NO GROWTH IN 1 DAY Resulted 08/03/17 05:28 Blood Peripheral Anaerobic Blood Culture - Preliminary NO GROWTH IN 1 DAY Resulted 08/02/17 15:22 Sputum Expectorated Sputum Gram Stain - Final Complete 08/02/17 15:22 Sputum Expectorated Sputum Sputum Culture - Final LIGHT GROWTH NORMAL RESPIRATORY JEFF Complete 08/02/17 17:16 Urine Catheterized Urine Legionella Antigen - Final PRESUMPTIVE NEGATIVE FOR LEGIONELLA P... Complete 08/02/17 17:16 Urine Catheterized Urine Streptococcus pneumoniae Antigen (M - Final PRESUMPTIVE NEGATIVE FOR STREPTOCOCCU... Complete Result Diagram: 08/03/17 1205 08/02/17 1215 Imaging Last Impressions Chest X-Ray 08/02/17 0600 Signed Impressions: Service Date/Time: Wednesday, August 02, 2017 04:01 - CONCLUSION: No significant change Franki Miller MD Liver Ultrasound 07/31/17 0000 Signed Impressions: Service Date/Time: Monday, July 31, 2017 18:09 - CONCLUSION: 1. Bilateral pleural effusion is noted. 2. Echogenic liver parenchyma characteristic of steatosis. Jeff Douglass MD Lower Extremity Ultrasound 07/28/17 0000 Signed Impressions: Service Date/Time: Friday, July 28, 2017 19:14 - CONCLUSION: No DVT. Franki Eldridge MD Chest CT 07/28/17 0000 Signed Impressions: Service Date/Time: Friday, July 28, 2017 23:40 - CONCLUSION: 1. Left greater than right bibasilar pneumonia. 2. Coronary artery calcification. Franki Moreno MD Assessment and Plan Assessment & Plan Remarks Assessment and Plan PNA, culture negative vs non infectious pneumonitis - on abx 10 days DT, ETOH withdrawl Acute VDRF Persistant fever dif dx include infection (PNA),vs noninfectious: ETOH withdral medications, other (DVT) - procalcitonine is low, m,ore cw non infectious cause Abx associated diarrhea, c.diff negative Leukocytosis - pt is on sterroids; likely cause are sterroids - dc vanco, zosyn and levaquine Radha Up MD Aug 06, 2017 20:13
[2017-08-06] MEDS ORDERED: LABETALOL HCL 100 MG/20 ML VIAL IV PUSH PRN (20:45)
[2017-08-06] MEDS: amLODIPine BESYLATE 5 MG TAB PO SCH (21:34)
[2017-08-07] VITALS (13 sets, daily range): BP systolic 160–169; BP diastolic 79–115; PULSE 69–116; RESP 12–22; TEMP 97.4–97.7; O2SAT 92–96
[2017-08-07] MEDS: DEXMEDETOMIDINE INJ 200 MCG in SODIUM CHLORIDE 0.9% INJ 50 ML IV PRN ×2 (00:45→06:31)
[2017-08-07] MEDS: hydrALAZINE HCL 20 MG/ML VIAL IV PUSH PRN ×3 (02:02→20:57)
[2017-08-07] MEDS: RESP: ALBUTEROL 2.5 MG/IPRATROPIUM 0.5 MG NEB (SCH) NEB ×4 (03:57→20:30)
[2017-08-07 05:11] LABS: AUTOMATED NEUTROPHIL # 15.2 TH/MM3 (1.8-7.7); HEMATOCRIT 37.4 % (39.0-51.0); HEMO FLAGS DIFF FINAL; LYMPH % 5.1 % (9.0-44.0); LYMPHOCYTE # 0.9 TH/MM3 (1.0-4.8); MEAN CELL VOLUME 99.2 FL (80.0-100.0); MEAN CORPUSCULAR HGB CONC 33.3 % (32.0-36.0); MONO % 6.7 % (0.0-8.0); NEUT % 88.2 % (16.0-70.0); PLATELET COUNT 478 TH/MM3 (150-450); RED BLOOD COUNT 3.77 MIL/MM3 (4.50-5.90); RED CELL DISTRIBUTION WIDTH 16.4 % (11.6-17.2); WHITE BLOOD COUNT 17.3 TH/MM3 (4.0-11.0)
[2017-08-07 05:32] LABS: ANION GAP 10 MEQ/L (5-15); AST (GOT) 28 U/L (15-37); BICARBONATE 25.9 MEQ/L (21.0-32.0); BLOOD UREA NITROGEN 23 MG/DL (7-18); CHLORIDE 105 MEQ/L (98-107); GLOMERULAR FILTRATION RATE 99 ML/MIN (>89); MAGNESIUM 2.5 MG/DL (1.5-2.5); POTASSIUM 3.7 MEQ/L (3.5-5.1); SODIUM (NA) 141 MEQ/L (136-145)
[2017-08-07 05:36] LABS: ALKALINE PHOSPHATASE 111 U/L (45-117); ALT (GPT) 42 U/L (12-78); TOTAL BILIRUBIN ADULT 0.3 MG/DL (0.2-1.0)
[2017-08-07] MEDS: ARTIFICIAL TEARS OPTH SOLN 15 ML BTL EACH EYE SCH ×3 (05:43→20:57)
[2017-08-07] MEDS: INSULIN NovoLIN REGULAR SUPPLEMENTAL SCALE SQ SCH ×2 (05:43→16:49)
[2017-08-07] MEDS: methylPREDNISolone SOD SUCC 125 MG/2 ML VIAL IV PUSH SCH (06:31)
[2017-08-07] MEDS: CHLORHEXIDINE 0.12% (ORAL KIT) 15 ML CUP MT SCH ×2 (08:00→20:00)
[2017-08-07] MEDS: THIAMINE HCL 100 MG TAB PO SCH (08:12)
[2017-08-07] MEDS: amLODIPine BESYLATE 5 MG TAB PO SCH (08:12)
[2017-08-07] MEDS: SENNOSIDES SYRUP 8.8 MG/5 ML CUP PO SCH (08:13)
[2017-08-07] MEDS: LACTULOSE SYRUP 20 GM/30 ML CUP PO SCH (08:13)
[2017-08-07] MEDS: DOCUSATE SODIUM 100 MG/10 ML UDC PO SCH ×2 (08:13→20:57)
[2017-08-07] MEDS: FOLIC ACID 1 MG TAB PO SCH (08:13)
[2017-08-07] MEDS: MULTIVITAMIN TAB PO SCH (08:13)
[2017-08-07] MEDS: LANSOPRAZOLE SOLUTAB 30 MG TAB NG SCH (08:13)
[2017-08-07] MEDS: NYSTATIN SUSP 500,000 U/5 ML CUP SWISH-SWAL SCH ×4 (08:13→20:57)
[2017-08-07] MEDS: SODIUM CHLORIDE 0.9% FLUSH 10 ML FLUSH IV FLUSH SCH ×2 (08:14→20:57)
[2017-08-07] MEDS: ENOXAPARIN SODIUM 40 MG/0.4 ML SYRINGE SQ SCH (08:14)
[2017-08-07] MEDS: BENEPROTEIN POWDER 1 PACK G-TUBE SCH ×3 (08:15→18:00)
--- NOTE | 2017-08-07 11:56 | HHI.CCPN ---
Subjective Remarks/Hospital Course The patient is a 72-year-old male with past medical history of hypertension, Cerebrovascular accident, EtOH abuse who was admitted under hospitalist service on July 28 for pneumonia. The patient had chest x-ray on admission which showed left base atelectasis or consolidation, in addition to nodular areas seen at the inferior lateral right hilar region. He subsequently had CT scan of the chest which showed left greater than right bibasilar pneumonia in addition to coronary artery calcifications. The patient was placed on broad-spectrum antibiotics and bronchodilators. In addition he was on CIWA protocol given his history of EtOH use. HELICAT was called on the patient for respiratory distress. He was transferred to ICU and ABG was performed by the primary team which showed a pH of 7.37, CO2 34, pAO2 63 , bicarb of 19 and saturation 88%. When seen the patient was on non-rebreather mask unresponsive, tachypneic and tachycardiac. He was subsequently intubated by myself and placed on full mechanical ventilation. He placed on Diprivan infusion for sedation and vent synchrony. 07/31: Remains orotracheally intubated. Currently resting in bed in no acute distress on propofol drip. Subjective 08/01: Tmax 101.4. Currently 100.3. FiO2 down to 35%. Currently on Midazolam at 8 mg an hour for sedation. Positive BM yesterday. Tolerating tube feeds currently at 40 cc an hour 08/02: Tmax 101. WBC count 18, failed CPAP trial due to tachypnea. Chest x-ray continues to show left lower lobe infiltrate 08/03: Failing CPAP due to tachypnea. Will start Precedex to facilitate weaning trials. Afebrile now. Had fever yesterday night. Cultures remain negative, new cultures from yesterday pending at this time 08/04: Currently on Precedex; Versed infusion had just been turned off. Do not follow commands withdraws extremities. Tmax 101 08/05: Patient is on Precedex, currently held. He is following commands 4. Mild to moderate secretions from ET tube. Fever trending down 08/06: More awake alert, placed on CPAP tolerating. No fever. CXR-mild atelectasis. Remains on low dose Precedex. 08/07: Extubated yesterday tolerating well. Communicative. Remains hypotensive. Getting breathing treatments now Objective Vital Signs Date Time Temp Pulse Resp B/P (MAP) Pulse Ox O2 Delivery O2 Flow Rate FiO2 08/07/17 10:00 106 08/07/17 08:29 94 Nasal Cannula 3.00 08/07/17 08:00 97.6 17 160/115 (130) 08/06/17 08:00 35 Intake and Output 08/07/17 08/07/17 08/08/17 08:00 16:00 00:00 Intake Total 373 ml Output Total 1525 ml Balance -1152 ml Result Diagram: 08/07/17 0448 08/07/17 0448 Imaging Last Impressions Chest X-Ray 08/01/17 0600 Signed Impressions: Service Date/Time: Tuesday, August 01, 2017 04:21 - CONCLUSION: Developing left lower lobe infiltrate. Endotracheal tube tip 1 cm proximal to the arnel. Eduardo Willoughby Jr., MD Liver Ultrasound 07/31/17 0000 Signed Impressions: Service Date/Time: Monday, July 31, 2017 18:09 - CONCLUSION: 1. Bilateral pleural effusion is noted. 2. Echogenic liver parenchyma characteristic of steatosis. Jeff Douglass MD Lower Extremity Ultrasound 07/28/17 0000 Signed Impressions: Service Date/Time: Friday, July 28, 2017 19:14 - CONCLUSION: No DVT. Franki Eldridge MD Chest CT 07/28/17 0000 Signed Impressions: Service Date/Time: Friday, July 28, 2017 23:40 - CONCLUSION: 1. Left greater than right bibasilar pneumonia. 2. Coronary artery calcification. Franki Moreno MD Objective Remarks GENERAL: 72-year-old male, getting a DuoNeb breathing treatment now SKIN: Warm and dry. HEAD: Atraumatic. Normocephalic. EYES: Pupils equal and round. No scleral icterus. No injection or drainage. ENT: No nasal bleeding or discharge. Orotracheally intubated NECK: Trachea midline. No JVD. CARDIOVASCULAR: Regular rate and rhythm. No murmurs RESPIRATORY: Breath sounds are appreciated bilaterally. Few course rhonchi, overall diminished breath sounds. GASTROINTESTINAL: Abdomen soft, non-tender, protuberant. Hypoactive bowel sounds are appreciated. MUSCULOSKELETAL: Extremities without significant peripheral edema. No obvious deformities. NEUROLOGICAL: Alert awake, following commands. There is no focal deficits A/P Assessment and Plan Neuro/Psych: History of bilateral basal ganglia CVA Alcohol abuse All continuos sedation stopped Continue thiamine 100 mg daily, folate 1 mg daily multivitamin daily Monitor for DTs post extubation CV: History of right carotid CEA 2015 Dr. Foster Hypertension, uncontrolled At home amlodipine 2.5 mill grams by mouth daily. Increase to 10 mg daily Add metoprolol 25 mg by mouth every 8 hours Bumex 2 mg IV x1 11/04, 1 mg IV x1 08/05, 101/3 Monitor goal to keep mean arterial pressure greater than 65 Resp: Acute respiratory failure secondary to pneumonia Probable COPD Extubated 08/06/17, tolerating well Albuterol/Atrovent aerosols every 6 hours scheduled and when necessary IV Solu-Medrol 125 mg 1, and 60 mg IV q12 started 08/05/17 EzPAP, Acapella. BiPAP as needed. Pulmonology consulted CT thorax 07/28 revealed bilateral lower lobe infiltrates left greater than right. ABX as below GI: Hypoalbuminemia Elevated total bilirubin Heart healthy diet Lansoprazole 30 mg daily for GI prophylaxis Docusate sodium/senna 1 tab twice a day for bowel regimen : Strict I's and O's in a critically ill patient Bumex as above Endo: Sliding-scale insulin with Accu-Cheks to maintain euglycemia every 12 hours low regimen Renal: Creatinine currently within normal limits Monitor urine output Accurate I's and O's Heme: Leukocytosis Macrocytosis Monitor CBC daily. Follow trends ID: Oral thrush Pneumonia community-acquired piperacillin/tazobactam and Levaquin for pneumonia, DC d by ID 08/06/17 Vanc DCd by ID 08/04 Continue nystatin swish and spit 4 times a day 5 mm Pertinent cultures 07/28 and 07/31 - sputum - no growth 07/28 and 07/31 - blood cultures 2 - no growth Influenza negative -07/29 Repeat blood and sputum culture, and negative to date Urine for Legionella and pneumococcal antigen negative MSK: Range of motion FEN: Hypophosphatemia Hypokalemia Replace electrolytes as clinically indicated Access - Utilize peripheral IV. Central line if indicated Prophylaxis GI - lansoprazole DVT - SCD/enoxaparin Critical Care: Level 2. Clinically improving. Transfer to Med surg with Tele. Consult hospitalist to assume care in Marciano Doan MD Aug 07, 2017 11:56
[2017-08-07] MEDS: METOPROLOL TARTRATE 25 MG TAB PO SCH ×2 (13:14→20:56)
[2017-08-07] MEDS: methylPREDNISolone SOD SUCC 40 MG/1 ML VIAL IV PUSH SCH (18:20)
--- NOTE | 2017-08-07 19:52 | MB ---
cc: CLAUDIO TORRES DATE OF CONSULTATION: 08/07/2017. REASON FOR CONSULTATION: Pneumonia, respiratory distress and COPD. HISTORY OF PRESENT ILLNESS: This is a 72-year-old white male who has a history of hypertension and history for previous stroke who was admitted with a cough and yellow expectoration as well as wheezing and shortness of breath. The patient also has been overweight and has been having some leg edema but denied any nausea, vomiting or aspiration. He was not running any fevers. Upon arrival in the emergency room, he had a chest x-ray which demonstrated evidence of left basilar atelectasis with consolidation and nodular areas in the inferolateral right hilar region. A CT of the chest was then done on 08/[address] chest showed bibasilar pneumonia and coronary artery calcification. No mass was seen. The patient has been on antibiotic therapy since admission and was given Levaquin 730 milligrams IV daily as well as Zosyn IV every six hours. The patient was placed on Solu-Medrol 60 milligrams twice a day as well. He is coughing up clear mucus now. He denies any chest pains. He has no nausea or vomiting. His sputum has now cleared up. PAST MEDICAL HISTORY: The patient's past history has included: 1. History of hypertension. 2. History of CVA. 3. Previous right carotid endarterectomy. 4. He has had left hip replacement surgery. 5. Bilateral knee replacement surgeries. ALLERGIES: NO DRUG ALLERGIES. MEDICATIONS: His medication list was reviewed and includes: 1. Haldol 2 milligrams PRN. 2. DuoNeb nebs three times a day. 3. Amlodipine 5 milligrams a day. HABITS: The patient smoked half to one-pack per day for over 35 years and quit. Drinks alcohol moderately. FAMILY HISTORY: Noncontributory. There is a history of hypertension. REVIEW OF SYSTEMS: The patient is overweight. He has dizzy attacks, postnasal drip and cough with expectoration. He has joint pains and back pain. He has leg swelling. No calf muscle pains and denies any skin rashes. The other system review is unremarkable. PHYSICAL EXAMINATION: GENERAL: This is a moderately obese elderly white male who is lying flat. His face was plethoric. There is mild peripheral edema with pigmentation of the skin of the lower extremities. VITAL SIGNS: His blood pressure is 155/80, pulse is 96, respirations 24, temperature 98.2. HEAD, EYES, EARS, NOSE, THROAT: Head normocephalic. The pupils are reactive. The sclerae were injected. Tongue is moist. Throat is injected. Nasal mucosa edematous. NECK: The neck is supple. No bruits. No thyroid enlargement. CHEST: Decreased breath sounds at the periphery. Expiratory wheezes are scattered bilaterally. Prolonged expirations. There are crackles heard at the lung bases, more on the right side. HEART: The heart sounds are regular. S1 and S2 with a systolic murmur 1/6 at the apex. ABDOMEN: Abdomen is soft and obese without masses. The liver edge is just felt below the costal margin. The bowel sounds are active. EXTREMITIES: Decreased pulses with mild edema. NEUROLOGIC: Reflexes are 1+. There are no gross motor deficits. Cranial nerves are grossly intact. RECTAL: Rectal exam is deferred. SKIN: No lesions observed. IMPRESSION: 1. Basilar pneumonia with hypoxemia. 2. History of CVA and altered mental status. 3. Hypertension. 4. Hyperlipidemia. 5. Obesity with possible sleep apnea. PLAN: 1. The patient will be continued on O2 at 2.5 liters nasal cannula. 2. Nebulized DuoNeb solution was added four times a day. 3. We will continue with antibiotic coverage including Levaquin 500 milligrams p.o. daily. 4. Solu-Medrol will be tapered down to 40 milligrams IV twice a day. 5. Continue with antihypertensive medications including amlodipine. 6. Pulmonary function studies to be done in the a.m. 7. The patient will be ambulated with physical therapy. 8. Follow-up x-rays to be done to evaluate the pneumonia at the lung bases. 9. Incentive spirometry has been encouraged to be used every 2 hours. I will follow the case with you, Dr. Doan. Thank you for this consultation. MD AISHA Kruse/LANCE /6:56 PM /7:38 PM
[2017-08-08] VITALS (10 sets, daily range): BP systolic 144–167; BP diastolic 60–96; PULSE 95–117; RESP 18–21; TEMP 97.2–98.6; O2SAT 91–94
[2017-08-08] MEDS: RESP: ALBUTEROL 2.5 MG/IPRATROPIUM 0.5 MG NEB (SCH) NEB ×4 (03:44→20:05)
[2017-08-08] MEDS: METOPROLOL TARTRATE 25 MG TAB PO SCH ×3 (05:58→21:44)
[2017-08-08] MEDS: ARTIFICIAL TEARS OPTH SOLN 15 ML BTL EACH EYE SCH ×3 (05:58→21:42)
[2017-08-08] MEDS: methylPREDNISolone SOD SUCC 40 MG/1 ML VIAL IV PUSH SCH (05:58)
[2017-08-08] MEDS: INSULIN NovoLIN REGULAR SUPPLEMENTAL SCALE SQ SCH ×2 (06:00→18:00)
--- NOTE | 2017-08-08 06:34 | RADRPT ---
EXAM DATE/TIME: 08/08/2017 05:12 [facility] COMPARISON: CHEST SINGLE AP, August 06, 2017, 4:05. INDICATIONS : Shortness of breath MEDICAL HISTORY : Hypertension. Gastroesophageal reflux disease. Pancreatitis. CVA SURGICAL HISTORY : Total knee replacement, left. Total knee replacement, right. Left hip arthroplasty ENCOUNTER: Subsequent ACUITY: 1 week PAIN SCORE: Non-responsive. LOCATION: Bilateral chest FINDINGS: A single view of the chest demonstrates the lungs to be symmetrically aerated without evidence of mas s, infiltrate or effusion. The cardiomediastinal contours are unremarkable. Osseous structures are intact. CONCLUSION: No acute disease. Franki Eldridge MD on August 08, 2017 at 6:32 Board Certified Radiologist. This report was verified electronically.
[2017-08-08 07:57] LABS: AUTOMATED NEUTROPHIL # 13.7 TH/MM3 (1.8-7.7); BASOPHIL % 0.2 % (0.0-2.0); EOSINOPHIL % 0.1 % (0.0-4.0); HEMATOCRIT 40.2 % (39.0-51.0); HEMO FLAGS DIFF FINAL; LYMPH % 7.2 % (9.0-44.0); LYMPHOCYTE # 1.2 TH/MM3 (1.0-4.8); MEAN CELL VOLUME 99.9 FL (80.0-100.0); MEAN CORPUSCULAR HEMOGLOBIN 33.3 PG (27.0-34.0); MEAN CORPUSCULAR HGB CONC 33.3 % (32.0-36.0); MONO % 10.6 % (0.0-8.0); NEUT % 81.9 % (16.0-70.0); PLATELET COUNT 610 TH/MM3 (150-450); RED BLOOD COUNT 4.03 MIL/MM3 (4.50-5.90); RED CELL DISTRIBUTION WIDTH 16.8 % (11.6-17.2); WHITE BLOOD COUNT 16.7 TH/MM3 (4.0-11.0)
[2017-08-08] MEDS: CHLORHEXIDINE 0.12% (ORAL KIT) 15 ML CUP MT SCH ×2 (08:00→20:00)
[2017-08-08] MEDS: BENEPROTEIN POWDER 1 PACK G-TUBE SCH ×3 (09:00→18:00)
[2017-08-08] MEDS: LACTULOSE SYRUP 20 GM/30 ML CUP PO SCH (09:54)
[2017-08-08] MEDS: THIAMINE HCL 100 MG TAB PO SCH (09:54)
[2017-08-08] MEDS: DOCUSATE SODIUM 100 MG/10 ML UDC PO SCH ×2 (09:54→21:00)
[2017-08-08] MEDS: MULTIVITAMIN TAB PO SCH (09:54)
[2017-08-08] MEDS: LANSOPRAZOLE SOLUTAB 30 MG TAB NG SCH (09:54)
[2017-08-08] MEDS: FOLIC ACID 1 MG TAB PO SCH (09:54)
[2017-08-08] MEDS: NYSTATIN SUSP 500,000 U/5 ML CUP SWISH-SWAL SCH ×4 (09:54→21:00)
[2017-08-08] MEDS: SENNOSIDES SYRUP 8.8 MG/5 ML CUP PO SCH (09:55)
[2017-08-08] MEDS: SODIUM CHLORIDE 0.9% FLUSH 10 ML FLUSH IV FLUSH SCH ×2 (09:55→21:42)
[2017-08-08] MEDS: ENOXAPARIN SODIUM 40 MG/0.4 ML SYRINGE SQ SCH (09:58)
--- NOTE | 2017-08-08 10:57 | HHI.PR ---
Subjective Remarks resting comfortably with no distress. denies sob or pain. no fever. Objective Vitals Vital Signs Date Time Temp Pulse Resp B/P (MAP) Pulse Ox O2 Delivery O2 Flow Rate FiO2 08/08/17 10:07 94 Nasal Cannula 3.00 08/08/17 08:05 97.9 98 20 155/60 (91) 93 08/08/17 04:00 97.4 108 19 149/86 (107) 93 08/08/17 04:00 Nasal Cannula 3.00 08/08/17 00:00 97.2 113 18 160/91 (114) 91 08/08/17 00:00 Nasal Cannula 3.00 08/07/17 20:30 93 Nasal Cannula 3.00 08/07/17 20:30 114 08/07/17 20:00 97.7 116 18 169/87 (114) 92 08/07/17 20:00 Nasal Cannula 3.00 08/07/17 16:56 100 08/07/17 16:30 97.4 102 20 161/79 (106) 94 08/07/17 14:00 80 08/07/17 12:00 80 08/07/17 12:00 97.6 80 22 164/87 (112) 92 I/O 08/07/17 08/07/17 08/07/17 08/08/17 08/08/17 08/08/17 07:00 15:00 23:00 07:00 15:00 23:00 Intake Total 373 ml 50 ml Output Total 1525 ml Balance -1152 ml 50 ml Intake Oral 240 ml IV Total 133 ml 50 ml Output Urine Total 1525 ml Stool Total 0 ml # Voids 7 # Bowel Movements 1 Result Diagram: 08/08/17 0620 08/07/17 0448 Imaging Last Impressions Chest X-Ray 08/06/17 0600 Signed Impressions: Service Date/Time: Sunday, August 06, 2017 04:05 - CONCLUSION: 1. Subsegmental atelectasis at the bases. Endotracheal tube and nasogastric tube in satisfactory position. Clarence Donis MD Liver Ultrasound 07/31/17 0000 Signed Impressions: Service Date/Time: Monday, July 31, 2017 18:09 - CONCLUSION: 1. Bilateral pleural effusion is noted. 2. Echogenic liver parenchyma characteristic of steatosis. Jeff Douglass MD Lower Extremity Ultrasound 07/28/17 0000 Signed Impressions: Service Date/Time: Friday, July 28, 2017 19:14 - CONCLUSION: No DVT. Franki Eldridge MD Chest CT 07/28/17 0000 Signed Impressions: Service Date/Time: Friday, July 28, 2017 23:40 - CONCLUSION: 1. Left greater than right bibasilar pneumonia. 2. Coronary artery calcification. Franki Moreno MD Objective Remarks GENERAL: in no acute distress CARDIOVASCULAR: Regular rate and regular rhythm without murmurs, gallops, or rubs. RESPIRATORY: Clear to auscultation. Breath sounds equal bilaterally. No wheezes , rales, or rhonchi. GASTROINTESTINAL: Abdomen soft, non-tender, nondistended. Normal, active bowel sounds MUSCULOSKELETAL: Extremities without clubbing, cyanosis, or edema. NEURO: awake and alert Medications and IVs Current Medications Acetaminophen (Tylenol) 650 mg ONCE ONCE PO Last administered on 07/28/17 20: 41; Start 07/28/17 at 19:15; Stop 07/28/17 at 19:16; Status DC Vancomycin HCl 1000 mg/Sodium Chloride 250 ml @ 250 mls/hr ONCE STAT IV Last administered on 07/28/17 20:41; Start 07/28/17 at 19:11; Stop 07/28/17 at 20:10 ; Status DC Cefepime HCl 2000 mg/Sodium Chloride 100 ml @ 200 mls/hr ONCE STAT IV Last administered on 07/28/17 22:17; Start 07/28/17 at 19:11; Stop 07/28/17 at 19:40 ; Status DC Sodium Chloride 1,000 ml @ 999 mls/hr BOLUS ONCE IV Last administered on 07/28 20:41; Start 07/28/17 at 19:15; Stop 07/28/17 at 20:15; Status DC Potassium Chloride (KCl) 30 meq ONCE ONCE PO Last administered on 07/28/17 22 :18; Start 07/28/17 at 22:00; Stop 07/28/17 at 22:01; Status DC Sodium Chloride (NS Flush) 2 ml UNSCH PRN IV FLUSH FLUSH AFTER USING IV ACCESS Last administered on 08/02/17 20:11; Start 07/28/17 at 22:30 Sodium Chloride (NS Flush) 2 ml BID IV FLUSH Last administered on 08/08/17 09 :55; Start 07/29/17 at 09:00 Naloxone HCl (Narcan Inj) 0.4 mg UNSCH PRN IV PUSH SEE LABEL COMMENTS; Start 07/28/17 at 22:30 Levofloxacin/ Dextrose 150 ml @ 100 mls/hr Q24H IV Last administered on 02:47; Start 07/29/17 at 02:00; Stop 07/29/17 at 08:53; Status DC Amlodipine Besylate (Norvasc) 2.5 mg DAILY PO Last administered on 07/29/17 12 :46; Start 07/29/17 at 09:00; Stop 07/31/17 at 07:58; Status DC Albuterol/ Ipratropium (Duoneb Neb) 1 ampule Q6HR NEB NEB Last administered on 07/30/17 10:00; Start 07/29/17 at 04:00; Stop 07/30/17 at 13:14; Status DC Albuterol/ Ipratropium (Duoneb Neb) 1 ampule Q2HR NEB PRN NEB SOB/WHEEZING Last administered on 07/31/17 04:00; Start 07/29/17 at 02:00; Stop 07/31/17 at 07:56; Status DC Enoxaparin Sodium (Lovenox Inj) 40 mg Q24H SQ Last administered on 08/08/17 09:58; Start 07/29/17 at 09:00 Piperacillin Sod/ Tazobactam Sod 50 ml @ 100 mls/hr Q6H IV Last administered on 08/01/17 10:00; Start 07/29/17 at 10:00; Stop 08/01/17 at 16:37; Status DC Sodium Chloride 1,000 ml @ 80 mls/hr [id number] IV Last administered on 20:36; Start 07/29/17 at 19:00; Stop 07/31/17 at 01:12; Status DC Flumazenil (Romazicon Inj) 0.2 mg Q1M PRN IV PUSH SEE LABEL COMMENTS; Start at 00:15; Stop 07/31/17 at 15:04; Status DC Lorazepam (Ativan) 1 mg Q4H PRN PO CIWA 8 - 10; Start 07/30/17 at 00:15; Stop 07/31/17 at 15:04; Status DC Lorazepam (Ativan Inj) 1 mg Q4H PRN IV PUSH CIWA 8 - 10; Start 07/30/17 at 00: 15; Stop 07/31/17 at 15:04; Status DC Lorazepam (Ativan) 2 mg Q2H PRN PO CIWA 11-14; Start 07/30/17 at 00:15; Stop 07/31/17 at 15:04; Status DC Lorazepam (Ativan Inj) 2 mg Q2H PRN IV PUSH CIWA 11-14 Last administered on 22:39; Start 07/30/17 at 00:15; Stop 07/31/17 at 15:04; Status DC Lorazepam (Ativan Inj) 2 mg Q1H PRN IV PUSH CIWA 15-20 Last administered on 03:03; Start 07/30/17 at 00:15; Stop 07/31/17 at 15:04; Status DC Lorazepam (Ativan Inj) 2 mg Q15M PRN IV PUSH CIWA > 20; Start 07/30/17 at 00:15 ; Stop 07/31/17 at 15:04; Status DC Acetaminophen (Tylenol Supp) 650 mg Q6H PRN RECTAL Fever > 100.4 Last administered on 07/30/17 23:44; Start 07/30/17 at 23:30 Haloperidol Lactate (Haldol Inj) 2 mg Q15M PRN IM SEE LABEL COMMENTS; Start at 23:45 Etomidate (Amidate Inj) 20 mg STK-MED ONCE .ROUTE Last administered on 00:51; Start 07/31/17 at 00:51; Stop 07/31/17 at 00:52; Status DC Propofol 100 ml @ As Directed STK-MED ONCE .ROUTE ; Start 07/31/17 at 00:51; Stop 07/31/17 at 00:52; Status DC Propofol 100 ml @ 2.928 mls/ hr TITRATE PRN IV SEDATION; Start 07/31/17 at 01: 00; Stop 07/31/17 at 01:10; Status DC Midazolam HCl 100 ml @ 2 mls/hr TITRATE PRN IV SEDATION Last administered on 02:10; Start 07/31/17 at 01:15; Stop 08/04/17 at 13:50; Status DC Thiamine HCl (Vitamin B1) 100 mg DAILY PO Last administered on 08/08/17 09:54 ; Start 07/31/17 at 09:00 Folic Acid (Folate) 1 mg DAILY PO Last administered on 08/08/17 09:54; Start 07/31/17 at 09:00 Multivitamins (Theragran) 1 tab DAILY PO Last administered on 08/08/17 09:54 ; Start 07/31/17 at 09:00 Chlorhexidine Gluconate (Peridex 0.12% Liq) 15 ml BID@08,20 MT Last administered on 08/06/17 09:02; Start 07/31/17 at 08:00 Dextrose/Sodium Chloride 1,000 ml @ 84 mls/hr [id number] IV Last administered on 08/01/17 00:20; Start 07/31/17 at 01:15; Stop 08/01/17 at 16:37; Status DC Dextrose (D50w (Vial) Inj) 50 ml UNSCH PRN IV PUSH HYPOGLYCEMIA-SEE COMMENTS; Start 07/31/17 at 01:15 Glucagon (Glucagon Inj) 1 mg UNSCH PRN OTHER HYPOGLYCEMIA-SEE COMMENTS; Start 07/31/17 at 01:15 Insulin Human Regular (NovoLIN R SUPPLEMENTAL SCALE) 1 Q4HR SQ ; Start 07/31/17 at 04:00; Stop 08/01/17 at 16:49; Status DC Propofol 100 ml @ 23.424 mls/ hr TITRATE PRN IV SEDATION Last administered on 08/01/17 03:28; Start 07/31/17 at 01:15; Stop 08/01/17 at 17:05; Status DC Vancomycin HCl 1000 mg/Sodium Chloride 250 ml @ 250 mls/hr Q12H IV Last administered on 08/06/17 13:01; Start 07/31/17 at 02:00; Stop 08/06/17 at 20: 14; Status DC Pantoprazole Sodium (Protonix Inj) 40 mg Q24H IV PUSH ; Start 07/31/17 at 09:00 ; Stop 07/31/17 at 09:00; Status DC Potassium Chloride 100 ml @ 50 mls/hr Q2H PRN IV For Potassium 2.8 - 3.2 mEq/ L Last administered on 08/01/17t 06:11; Start 07/31/17 at 04:15; Stop 08/07/17 at 16:10; Status DC Potassium Chloride 100 ml @ 50 mls/hr Q2H PRN IV For Potassium 2.8 - 3.2 mEq/ L Last administered on 08/01/17t 07:48; Start 07/31/17 at 04:15; Stop 08/07/17 at 16:10; Status DC Potassium Bicarb/ Potassium Chloride (K-Lyte Cl Eff) 50 meq UNSCH PRN PO For Potassium 3.3 - 3.5 mEq/L; Start 07/31/17 at 04:15; Stop 08/07/17 at 16:10; Status DC Potassium Chloride 100 ml @ 25 mls/hr UNSCH PRN IV For Potassium 3.3 - 3.5 mEq /L; Start 07/31/17 at 04:15; Stop 08/07/17 at 16:10; Status DC Potassium Chloride 100 ml @ 50 mls/hr Q2H PRN IV For Potassium 3.3 - 3.5 mEq/L ; Start 07/31/17 at 04:15; Stop 08/07/17 at 16:10; Status DC Magnesium Sulfate 4 gm/Sodium Chloride 100 ml @ 50 mls/hr UNSCH PRN IV For Magnesium 0.9 - 1.1 mg/dL; Start 07/31/17 at 04:15; Stop 08/07/17 at 16:10; Status DC Magnesium Oxide (Mag-Ox) 800 mg UNSCH PRN PO For Magnesium 1.2 - 1.6 mg/dL; Start 07/31/17 at 04:15; Stop 08/07/17 at 16:10; Status DC Magnesium Sulfate 2 gm/Sodium Chloride 100 ml @ 50 mls/hr UNSCH PRN IV For Magnesium 1.2 - 1.6 mg/dL; Start 07/31/17 at 04:15; Stop 08/07/17 at 16:10; Status DC Potassium Phosphate (K-Phos) 2,000 mg Q4H PRN PO For Phosphorus < 2.5 mg/dL; Start 07/31/17 at 04:15; Stop 08/07/17 at 16:10; Status DC Sodium Phosphate 30 mmol/Sodium Chloride 250 ml @ 42 mls/hr UNSCH PRN IV For Phosphorus < 2.5 mg/dL; Start 07/31/17 at 04:15; Stop 08/07/17 at 16:10; Status DC Potassium Phosphate (K-Phos) 2,000 mg UNSCH PRN PO/TUBE SEE LABEL COMMENTS; Start 07/31/17 at 04:15; Stop 08/07/17 at 16:10; Status DC Potassium Phosphate 30 mmol/ Sodium Chloride 260 ml @ 42 mls/hr UNSCH PRN IV SEE LABEL COMMENTS; Start 07/31/17 at 04:15; Stop 08/07/17 at 16:10; Status DC Magnesium Sulfate/ Dextrose 100 ml @ 100 mls/hr Q1H IV Last administered on 13:29; Start 07/31/17 at 08:00; Stop 07/31/17 at 10:59; Status DC Potassium Chloride (KCl Powder) 60 meq ONCE ONCE DOBHOFF Last administered on 07/31/17 07:45; Start 07/31/17 at 07:45; Stop 07/31/17 at 07:46; Status DC Protein (Beneprotein Powder) 1 pack TID G-TUBE Last administered on 08/05/17 17:31; Start 07/31/17 at 09:00 Artificial Tears (Tears Naturale Opth Soln) 1 drop Q8HR EACH EYE Last administered on 08/08/17 05:58; Start 07/31/17 at 14:00 Albuterol/ Ipratropium (Duoneb Neb) 1 ampule Q6HR NEB NEB Last administered on 08/04/17 08:24; Start 07/31/17 at 10:00; Stop 08/04/17 at 09:59; Status DC Albuterol Sulfate (Albuterol Neb) 2.5 mg Q2HR NEB PRN NEB dyspnea Last administered on 08/05/17 08:43; Start 07/31/17 at 08:00 Lansoprazole (Prevacid Odt) 30 mg DAILY NG Last administered on 08/08/17 09: 54; Start 07/31/17 at 09:00 Docusate Sodium (Colace Liq) 100 mg Q12HR PO Last administered on 08/08/17 09 :54; Start 07/31/17 at 21:00 Sennosides (Senna Liq) 8.8 mg DAILY PO Last administered on 08/08/17 09:55; Start 08/01/17 at 09:00 Acetaminophen (Tylenol 650 Mg/ 20 ml Liq) 650 mg Q1H PRN OG-TUBE TEMPERATURE > 101 F Last administered on 08/04/17 10:00; Start 07/31/17 at 19:15 Potassium Chloride (KCl Powder) 80 meq ONCE ONCE OG-TUBE Last administered on 08/01/17 08:30; Start 08/01/17 at 08:30; Stop 08/01/17 at 08:47; Status DC Potassium Phosphate 30 mmol/ Sodium Chloride 260 ml @ 43.333 mls/ hr ONCE ONCE IV Last administered on 08/01/17 10:42; Start 08/01/17 at 08:30; Stop at 14:29; Status DC Lactulose (Lactulose Liq) 30 ml ONCE ONCE PO Last administered on 08/01/17 17 :15; Start 08/01/17 at 16:45; Stop 08/01/17 at 16:46; Status DC Lactulose (Lactulose Liq) 30 ml DAILY PO Last administered on 08/08/17 09:54 ; Start 08/02/17 at 09:00 Piperacillin Sod/ Tazobactam Sod 100 ml @ 200 mls/hr Q6H IV Last administered on 08/06/17 16:34; Start 08/01/17 at 18:00; Stop 08/06/17 at 20:14; Status DC Insulin Human Regular (NovoLIN R SUPPLEMENTAL SCALE) 1 BID@0600,1800 SQ Last administered on 08/06/17 06:12; Start 08/01/17 at 18:00 Chlorhexidine Gluconate (Peridex 0.12% Liq) 15 ml BID@08,20 MT ; Start 08/01/17 at 20:00; Status UNV Fentanyl Citrate 250 ml @ 5 mls/hr TITRATE PRN IV SEDATION Last administered on 08/02/17 20:41; Start 08/01/17 at 17:15; Stop 08/04/17 at 13:50; Status DC Nystatin (Mycostatin Liq) 5 ml QID SWISH-SWAL Last administered on 08/08/17 09:54; Start 08/01/17 at 18:00 Nystatin (Mycostatin Liq) 5 ml Q6HR SWISH-SPIT ; Start 08/01/17 at 18:00; Status Cancel Potassium Chloride (KCl Powder) 20 meq ONCE ONCE PO Last administered on 21:55; Start 08/01/17 at 20:00; Stop 08/01/17 at 20:01; Status DC Levofloxacin/ Dextrose 150 ml @ 100 mls/hr Q24H IV Last administered on 13:04; Start 08/02/17 at 15:00; Stop 08/06/17 at 20:14; Status DC Dexmedetomidine HCl 200 mcg/ Sodium Chloride 52 ml @ 5.33 mls/hr TITRATE PRN IV SEDATION Last administered on 08/07/17 06:31; Start 08/03/17 at 09:00; Stop 08/07/17 at 11:47; Status DC Bumetanide (Bumex Inj) 2 mg ONCE ONCE IV PUSH Last administered on 08/03/17 09:54; Start 08/03/17 at 09:00; Stop 08/03/17 at 09:25; Status DC Potassium Bicarb/ Potassium Chloride (K-Lyte Cl Eff) 50 meq ONCE ONCE PO Last administered on 08/03/17 11:18; Start 08/03/17 at 09:00; Stop 08/03/17 at 09:26; Status DC Fentanyl Citrate (fentaNYL INJ) 50 mcg ONCE ONCE IV PUSH Last administered on 08/03/17 09:54; Start 08/03/17 at 09:00; Stop 08/03/17 at 09:25; Status DC Fentanyl Citrate (fentaNYL INJ) 100 mcg STK-MED ONCE .ROUTE ; Start 08/03/17 at 09:04; Stop 08/03/17 at 09:05; Status DC Bumetanide (Bumex Inj) 1 mg ONCE ONCE IV PUSH Last administered on 08/05/17 08:38; Start 08/05/17 at 09:00; Stop 08/05/17 at 09:01; Status DC Potassium Bicarb/ Potassium Chloride (K-Lyte Cl Eff) 25 meq ONCE ONCE PO Last administered on 08/05/17 08:38; Start 08/05/17 at 09:00; Stop 08/05/17 at 09:01; Status DC Albuterol/ Ipratropium (Duoneb Neb) 1 ampule Q6HR NEB NEB Last administered on 08/08/17 10:07; Start 08/05/17 at 10:00 Methylprednisolone Sodium Succinate (SoluMEDROL INJ) 125 mg ONCE ONCE IV PUSH Last administered on 08/05/17 10:30; Start 08/05/17 at 10:30; Stop 08/05/17 at 10:31; Status DC Methylprednisolone Sodium Succinate (SoluMEDROL INJ) 60 mg Q12H IV PUSH Last administered on 08/07/17 06:31; Start 08/05/17 at 18:00; Stop 08/07/17 at 14 :44; Status DC Bumetanide (Bumex Inj) 1 mg ONCE ONCE IV PUSH Last administered on 08/06/17 09:02; Start 08/06/17 at 08:30; Stop 08/06/17 at 08:52; Status DC Amlodipine Besylate (Norvasc) 2.5 mg DAILY PO Last administered on 08/07/17 08:12; Start 08/06/17 at 21:00; Stop 08/07/17 at 11:46; Status DC Labetalol HCl (Trandate Inj) 10 mg Q4H PRN IV PUSH SBP >160; Start 08/06/17 at 20:45 Hydralazine HCl (Apresoline Inj) 10 mg Q4H PRN IV PUSH SBP >160 Last administered on 08/07/17 20:57; Start 08/06/17 at 20:45 Amlodipine Besylate (Norvasc) 10 mg DAILY PO Last administered on 08/08/17 09 :54; Start 08/08/17 at 09:00 Metoprolol Tartrate (Lopressor) 25 mg Q8HR PO Last administered on 08/08/17 05:58; Start 08/07/17 at 14:00 Methylprednisolone Sodium Succinate (SoluMEDROL INJ) 40 mg Q12H IV PUSH Last administered on 08/08/17 05:58; Start 08/07/17 at 18:00 A/P Problem List: (1) Pneumonia ICD Code: J18.9 - Pneumonia, unspecified organism Status: Acute (2) Leukocytosis ICD Code: D72.829 - Elevated white blood cell count, unspecified Status: Acute (3) Hypokalemia ICD Code: E87.6 - Hypokalemia Status: Acute (4) Hyponatremia ICD Code: E87.1 - Hypo-osmolality and hyponatremia (5) Hypertension ICD Code: I10 - Essential (primary) hypertension Status: Chronic Assessment and Plan A/P History of bilateral basal ganglia CVA Alcohol abuse Continue thiamine 100 mg daily, folate 1 mg daily multivitamin daily History of right carotid CEA 2015 Dr. Foster Hypertension, uncontrolled At home amlodipine 2.5 mill grams by mouth daily. Increased to 10 mg daily Added metoprolol 25 mg by mouth every 8 hours continue to monitor and adjust the regimen as needed. Acute respiratory failure secondary to pneumonia-resolved. Probable COPD Extubated 08/06/17, tolerating well continue neb treatment. taper down IV solumedrol BiPAP as needed. Pulmonology consulted CT thorax 07/28 revealed bilateral lower lobe infiltrates left greater than right. ABX discontinued. Hypoalbuminemia Elevated total bilirubin Heart healthy diet Lansoprazole 30 mg daily for GI prophylaxis Docusate sodium/senna 1 tab twice a day for bowel regimen Leukocytosis- likely due to steroids- afebrile. Macrocytosis- due to alcohol. Monitor CBC periodically. Oral thrush Pneumonia community-acquired Continue nystatin swish and spit 4 times a day 5 mm Pertinent cultures 07/28 and 07/31 - sputum - no growth 07/28 and 07/31 - blood cultures 2 - no growth Influenza negative -07/29 Repeat blood and sputum culture, and negative to date Urine for Legionella and pneumococcal antigen negative Hypophosphatemia Hypokalemia Replaced. Prophylaxis GI - lansoprazole DVT - SCD/enoxaparin Discharge Planning dc to SNF within the next 24-48 hrs if stable. Problem Qualifiers (1) Pneumonia: Qualified Codes: J18.9 - Pneumonia, unspecified organism (2) Leukocytosis: Qualified Codes: D72.829 - Elevated white blood cell count, unspecified Ken Garcia MD Aug 08, 2017 10:57
--- NOTE | 2017-08-08 16:57 | HHI.PR ---
Subjective Remarks Feels better today. No fever. WBC is still up. On O2 2 L. No chest pain, or cough. Objective Vital Signs Date Time Temp Pulse Resp B/P (MAP) Pulse Ox O2 Delivery O2 Flow Rate FiO2 08/08/17 12:05 97.7 116 20 157/85 (109) 91 08/08/17 10:07 94 Nasal Cannula 3.00 08/08/17 08:05 97.9 98 20 155/60 (91) 93 08/08/17 08:00 109 08/08/17 07:00 94 Nasal Cannula 3.00 08/08/17 04:00 97.4 108 19 149/86 (107) 93 08/08/17 04:00 Nasal Cannula 3.00 08/08/17 00:00 97.2 113 18 160/91 (114) 91 08/08/17 00:00 Nasal Cannula 3.00 08/07/17 20:30 93 Nasal Cannula 3.00 08/07/17 20:30 114 08/07/17 20:00 97.7 116 18 169/87 (114) 92 08/07/17 20:00 Nasal Cannula 3.00 08/07/17 16:56 100 I/O 08/07/17 08/07/17 08/07/17 08/08/17 08/08/17 08/08/17 07:00 15:00 23:00 07:00 15:00 23:00 Intake Total 373 ml 50 ml Output Total 1525 ml Balance -1152 ml 50 ml Intake Oral 240 ml IV Total 133 ml 50 ml Output Urine Total 1525 ml Stool Total 0 ml # Voids 7 # Bowel Movements 1 Result Diagram: 08/08/17 0620 08/07/17 0448 Objective Remarks This is a moderately obese elderly white male who is lying flat. His face was plethoric. There is mild peripheral edema with pigmentation of the skin of the lower extremities. HEAD, EYES, EARS, NOSE, THROAT: Head normocephalic. The pupils are reactive. The sclerae were injected. Tongue is moist. Throat is injected. Nasal mucosa edematous. NECK: The neck is supple. No bruits. No thyroid enlargement. CHEST: Decreased breath sounds at the periphery. Expiratory wheezes are scattered bilaterally. Prolonged expirations. There are crackles heard at the lung bases, more on the right side. HEART: The heart sounds are regular. S1 and S2 with a systolic murmur 1/6 at the apex. ABDOMEN: Abdomen is soft and obese without masses. The liver edge is just felt below the costal margin. The bowel sounds are active. EXTREMITIES: Decreased pulses with mild edema. NEUROLOGIC: Reflexes are 1+. There are no gross motor deficits. Cranial nerves are grossly intact. RECTAL: Rectal exam is deferred. SKIN: No lesions observed. Assessment and Plan Assessment and Plan IMPRESSION: 1. Basilar pneumonia with hypoxemia. 2. History of CVA and altered mental status. 3. Hypertension. 4. Hyperlipidemia. 5. Obesity with possible sleep apnea. Plan : 1. Wean O2 to 2 L. 2. Arrange home O2 if sat <88 on RA. 3. Cont Nebs qid , duoneb. 4. PFT in am. 5. Symbicort 160/4.5 mcg , 2puffs bid. 6. PT evaluation. 7. To rehab soon. Nena King MD Aug 08, 2017 16:57
[2017-08-08] MEDS ORDERED: methylPREDNISolone SOD SUCC 40 MG/1 ML VIAL IV PUSH SCH (18:00)
[2017-08-08] MEDS ORDERED: LORazepam 2 MG/ML VIAL IV PUSH ONE (21:45)
[2017-08-09] VITALS: BP 118/53; PULSE 88; RESP 18; TEMP 98; O2SAT 94
[2017-08-09] MEDS: RESP: ALBUTEROL 2.5 MG/IPRATROPIUM 0.5 MG NEB (SCH) NEB ×2 (03:30→09:44)
[2017-08-09 04:00] VITALS: BP 133/58; PULSE 85; RESP 23; TEMP 97.6; O2SAT 95
[2017-08-09] MEDS: METOPROLOL TARTRATE 25 MG TAB PO SCH (05:51)
[2017-08-09] MEDS: ARTIFICIAL TEARS OPTH SOLN 15 ML BTL EACH EYE SCH (05:52)
[2017-08-09] MEDS: INSULIN NovoLIN REGULAR SUPPLEMENTAL SCALE SQ SCH (05:53)
[2017-08-09 07:43] LABS: AUTOMATED NEUTROPHIL # 9.6 TH/MM3 (1.8-7.7); BASOPHIL % 0.1 % (0.0-2.0); EOSINOPHIL # 0.2 TH/MM3 (0-0.4); EOSINOPHIL % 1.3 % (0.0-4.0); HEMATOCRIT 40.1 % (39.0-51.0); HEMO FLAGS DIFF FINAL; LYMPH % 10.8 % (9.0-44.0); LYMPHOCYTE # 1.3 TH/MM3 (1.0-4.8); MEAN CELL VOLUME 99.8 FL (80.0-100.0); MEAN CORPUSCULAR HEMOGLOBIN 33.6 PG (27.0-34.0); MEAN CORPUSCULAR HGB CONC 33.7 % (32.0-36.0); MONO % 10.2 % (0.0-8.0); NEUT % 77.6 % (16.0-70.0); PLATELET COUNT 578 TH/MM3 (150-450); RED BLOOD COUNT 4.02 MIL/MM3 (4.50-5.90); RED CELL DISTRIBUTION WIDTH 16.6 % (11.6-17.2); WHITE BLOOD COUNT 12.4 TH/MM3 (4.0-11.0)
[2017-08-09 08:00] VITALS: PULSE 73
[2017-08-09] MEDS: CHLORHEXIDINE 0.12% (ORAL KIT) 15 ML CUP MT SCH (08:00)
[2017-08-09 08:03] VITALS: BP 125/82; PULSE 67; RESP 18; TEMP 97.4; O2SAT 96
[2017-08-09] MEDS: SENNOSIDES SYRUP 8.8 MG/5 ML CUP PO SCH (09:00)
[2017-08-09] MEDS: BENEPROTEIN POWDER 1 PACK G-TUBE SCH (09:00)
[2017-08-09] MEDS: LACTULOSE SYRUP 20 GM/30 ML CUP PO SCH (09:00)
[2017-08-09] MEDS: DOCUSATE SODIUM 100 MG/10 ML UDC PO SCH (09:19)
[2017-08-09] MEDS: THIAMINE HCL 100 MG TAB PO SCH (09:19)
[2017-08-09] MEDS: MULTIVITAMIN TAB PO SCH (09:19)
[2017-08-09] MEDS: FOLIC ACID 1 MG TAB PO SCH (09:19)
[2017-08-09] MEDS: LANSOPRAZOLE SOLUTAB 30 MG TAB NG SCH (09:19)
[2017-08-09] MEDS: NYSTATIN SUSP 500,000 U/5 ML CUP SWISH-SWAL SCH (09:19)
[2017-08-09] MEDS: SODIUM CHLORIDE 0.9% FLUSH 10 ML FLUSH IV FLUSH SCH (09:20)
[2017-08-09] MEDS: ENOXAPARIN SODIUM 40 MG/0.4 ML SYRINGE SQ SCH (09:20)
[2017-08-09 09:46] VITALS: O2SAT 93
[2017-08-09] MEDS ORDERED: ALBU0.08 NEB (11:44)
[2017-08-09] MEDS ORDERED: AMLO10TA2 PO (11:44)
[2017-08-09] MEDS ORDERED: METO25TA3 PO (11:44)
--- NOTE | 2017-08-09 11:45 | HHI.DS ---
Discharge Summary Admission Date Jul 28, 2017 at 22:10 Discharge Date: Aug 09, 2017 Admitting Diagnosis Sepsis, pneumonia (1) Pneumonia ICD Code: J18.9 - Pneumonia, unspecified organism Status: Acute (2) Leukocytosis ICD Code: D72.829 - Elevated white blood cell count, unspecified Status: Acute (3) Hypokalemia ICD Code: E87.6 - Hypokalemia Status: Acute (4) Hyponatremia ICD Code: E87.1 - Hypo-osmolality and hyponatremia (5) Hypertension ICD Code: I10 - Essential (primary) hypertension Status: Chronic Brief History - From Admission HPI from the admitting physician. Patient is seen in ED. He states that he came to the hospital for evaluation of productive cough x 3 days with yellow sputum - large amount of sputum production. Reports fever, denies shortness of breath. Denies chest pain or tightness. Denies dysphagia. Reports difficulty eating and taking pills because his throat is full of phlegm ; no problems swallowing prior to excessive mucous production Peripheral edema: chronic with no recent in crease in edema. Denies abdominal pain, diarrhea, nausea, vomiting, dysuria, hematuria, black or bloody stool. During visit, the patient was coughing up and expectorating a large amount of yellow sputum and his upper airway sounded congested. CBC/BMP: 08/09/17 0700 08/07/17 0448 Significant Findings Laboratory Tests Test 08/07/17 04:48 08/08/17 06:20 08/09/17 07:00 White Blood Count 17.3 TH/MM3 (4.0-11.0) 16.7 TH/MM3 (4.0-11.0) 12.4 TH/MM3 (4.0-11.0) Red Blood Count 3.77 MIL/MM3 (4.50-5.90) 4.03 MIL/MM3 (4.50-5.90) 4.02 MIL/MM3 (4.50-5.90) Hemoglobin 12.5 GM/DL (13.0-17.0) Hematocrit 37.4 % (39.0-51.0) Platelet Count 478 TH/MM3 (150-450) 610 TH/MM3 (150-450) 578 TH/MM3 (150-450) Neutrophils (%) (Auto) 88.2 % (16.0-70.0) 81.9 % (16.0-70.0) 77.6 % (16.0-70.0) Lymphocytes (%) (Auto) 5.1 % (9.0-44.0) 7.2 % (9.0-44.0) Neutrophils # (Auto) 15.2 TH/MM3 (1.8-7.7) 13.7 TH/MM3 (1.8-7.7) 9.6 TH/MM3 (1.8-7.7) Lymphocytes # (Auto) 0.9 TH/MM3 (1.0-4.8) Monocytes # (Auto) 1.2 TH/MM3 (0-0.9) 1.8 TH/MM3 (0-0.9) 1.3 TH/MM3 (0-0.9) Blood Urea Nitrogen 23 MG/DL (7-18) Albumin 2.0 GM/DL (3.4-5.0) Monocytes (%) (Auto) 10.6 % (0.0-8.0) 10.2 % (0.0-8.0) PE at Discharge GENERAL: in no acute distress CARDIOVASCULAR: Regular rate and regular rhythm without murmurs, gallops, or rubs. RESPIRATORY: Clear to auscultation. Breath sounds equal bilaterally. No wheezes , rales, or rhonchi. GASTROINTESTINAL: Abdomen soft, non-tender, nondistended. Normal, active bowel sounds MUSCULOSKELETAL: Extremities without clubbing, cyanosis, or edema. NEURO: awake and alert Pt Condition on Discharge: Good Discharge Disposition: Discharge to SNF Discharge Instructions DIET: Follow Instructions for: Heart Healthy Diet Activities you can perform: Regular-No Restrictions Allan Guerra MD Aug 09, 2017 11:45
[2017-08-09 12:03] VITALS: BP 108/71; PULSE 89; RESP 18; TEMP 97.8; O2SAT 91
== END 2017-08-09 13:07 | DRG 870 ==
LOC: NEPC 18:47 → NEDA 22:10 → N04B 23:49 → HIME 07-31 00:30 → N04B 08-07 15:36
PROVIDERS: ADMIT Internal Medicine; ATTEND Family Medicine
PROC: 0BH17EZ Insertion of Endotracheal Airway into Trachea, Via Natural or Artificial Opening (ICD-10-PCS; principal; 2017-07-31)
PROC: 5A1955Z Respiratory Ventilation, Greater than 96 Consecutive Hours (ICD-10-PCS; 2017-07-31)
DX: A41.9 Sepsis, unspecified organism (principal); J18.9 Pneumonia, unspecified organism; J96.01 Acute respiratory failure with hypoxia; E87.1 Hypo-osmolality and hyponatremia; B37.0 Candidal stomatitis; K52.1 Toxic gastroenteritis and colitis; I10 Essential (primary) hypertension; E87.6 Hypokalemia; E88.09 Other disorders of plasma-protein metabolism, not elsewhere classified; D53.9 Nutritional anemia, unspecified; E83.39 Other disorders of phosphorus metabolism; E66.9 Obesity, unspecified; E78.5 Hyperlipidemia, unspecified; T36.95XA Adverse effect of unspecified systemic antibiotic, initial encounter; F10.10 Alcohol abuse, uncomplicated; Z86.73 Personal history of transient ischemic attack (TIA), and cerebral infarction without residual deficits; Z68.28 Body mass index [BMI] 28.0-28.9, adult; Z87.891 Personal history of nicotine dependence
CPT/HCPCS: 31500; 36600; 71010; 71250; 76705; 76937; 80048; 80053; 81001; 82140; 82550; 82805; 82948; 83605; 83735; 84100; 84132; 84145; 84484; 85007; 85025; 85027; 85610; 85730; 87040; 87070; 87205; 87449; 87493; 87641; 87804; 93970; 94002; 94003; 94150; 94640; 94664; 94667; 94668; 96365; J0360; J0692; J1650; J1956; J2060; J2250; J2543; J2920; J2930; J3010; J3370; J3475; J3480; J7030; J7042; J7050; J7613

== ENCOUNTER 2018-05-24 16:56 | Inpatient (IN) ==
--- NOTE | 2018-05-24 17:25 | ED ---
HPI General Chief complaint: Weakness Stated complaint: Weakness/Pain Time Seen by Provider: 05/24/18 17:03 Source: patient Mode of arrival: EMS Limitations: no limitations History of Present Illness HPI Narrative: 73-year-old male presents emergency department via EVAC complaining of generalized weakness. Patient says his right leg began swelling of the subsequently his left leg began swelling in his right wrist became more swollen and painful over the last couple days. Says he has had neck pain and has a difficult time moving his neck. Says that patient has been unable to move from the couch for the last 3-4 days because he has felt weak. Says his neck pain started approximately 3 days ago. EVAC states patient's blood sugar was 118 and temperature 100.3. Patient denies any inciting events although states that he was out working around his house and maybe he worked too hard. Related Data Home Medications Medication Instructions Recorded Confirmed amlodipine 5 mg PO DAILY 05/24/18 05/24/18 Allergies Allergy/AdvReac Type Severity Reaction Status Date / Time No Known Allergies Allergy Uncoded 07/28/17 18:58 Review of Systems Except as stated in HPI: all other systems reviewed are negative [facility] Social History Social History Substance History: No History of Abuse Second Hand Smoke Exposure: No Smoking Status: Current every day smoker Tobacco Type: Cigarettes How Often Do You Have a Drink Containing Alcohol: 4 or more times a week Recent Travel in [place] within the Last 8 Weeks: No Recent Out of Country Travel within the Last 8 Weeks: No Immunization History Tetanus Immunization: Unsure Exam Narrative Exam Narrative: GENERAL: WD, WN in NAD, moving very little but talking in normal conversation SKIN: Focused skin assessment warm/dry. R hand- edematous and erythematous, TTP, limited ROM secondary to pain. No definite portal of entry. B/L lower extremity edema without erythema, FROM of toes, ankles without pain. No tenderness palpation of the calf HEAD: Atraumatic. Normocephalic. EYES: Pupils equal and round. No scleral icterus. No injection or drainage. ENT: No nasal bleeding or discharge. Mucous membranes pink and moist. NECK: Trachea midline. No JVD. CARDIOVASCULAR: Regular rate and rhythm. No murmur appreciated. RESPIRATORY: No accessory muscle use. Clear to auscultation. Breath sounds equal bilaterally. GASTROINTESTINAL: Abdomen soft, non-tender, nondistended. Hepatic and splenic margins not palpable. MUSCULOSKELETAL: No obvious deformities. No clubbing. No cyanosis. No edema. NEUROLOGICAL: Awake and alert. No obvious cranial nerve deficits. Motor grossly within normal limits. Normal speech. PSYCHIATRIC: Appropriate mood and affect; insight and judgment normal. Course Initial Documented Vital Signs Temperature 100.0 F H 05/24/18 17:01 Pulse Rate 103 H 05/24/18 17:01 Respiratory Rate 18 05/24/18 17:01 Blood Pressure 168/86 H 05/24/18 17:01 Pulse Oximetry 95 05/24/18 17:01 Last Documented Vital Signs Temperature 97.1 F L 05/24/18 20:25 Pulse Rate 97 H 05/24/18 20:25 Respiratory Rate 18 05/24/18 20:25 Blood Pressure 126/76 05/24/18 20:25 Pulse Oximetry 97 05/24/18 20:25 Medical Decision Making MDM Narrative Medical decision making narrative: 73y male presents to the ED via EVAC with weakness. Pt has no complaints except for right hand, right foot, and left foot swelling. Denies inciting events. Denies exposures, new foods, or chemicals. Denies fevers, chills, chest pain, shortness of breath, abdominal pain. Pt has a history of HTN and takes amlodipine. He does not remember what other medication he takes. Physical exam demonstrates a well developed, well-nourished patient in no apparent distress. His right hand is edematous and erythematous, indicative of cellulitis. No lymph angiopathic spread. Bilateral lower extremities are edematous particularly distal to the ankle joint. Patient does have full range of motion of the ankle and toes. Patient has some mild tenderness palpation of the neck with head and a fixed tilted and slightly rotated position. Patient has muscle spasms to the anterior neck. His vital signs demonstrate blood pressure 168/86, heart rate 106, temperature 100. After review of the EMR, it appears that patient has a history of bilateral lower extremity swelling. He also has a history of a TIA and right carotid endarterectomy in 2016. He left AGAINST MEDICAL ADVICE shortly after this procedure. I do not appreciate any neurological deficits today. Patient was admitted in July 2017 with pneumonia and developing sepsis. Patient required intubation and was subsequently extubated, and discharged home. Labs: WBCs 15 Na 128 (h/o chronic alcoholism) UA non contributory CXR without acute process. Vancomycin and Zosyn administered. Tylenol for fever. 1500 NS IVF initiated. US LE Doppler ordered as patient is unsure how long his legs have been swollen and is unsure if he has had DVT previously. I suspect that he has LE edema secondary to his sedentary state over the last few days. Pt should be admitted for cellulitis, developing sepsis. I spoke to Dr. Fitzgerald who agreed to the admission. Lab Data Result diagrams: 05/24/18 17:25 05/24/18 17:25 Lab Results 05/24/18 05/24/18 05/24/18 Range/Units 17:25 17:25 17:25 WBC 15.0 H (4.0-11.0) th/mm3 RBC 5.17 (4.50-5.90) mil/mm3 Hgb 17.1 H (13.0-17.0) gm/dL Hct 50.0 (39.0-51.0) % MCV 96.6 (80.0-100.0) fL MCH 33.1 (27.0-34.0) pg MCHC 34.2 (32.0-36.0) % RDW 13.7 (11.6-17.2) % Plt Count 281 (150-450) th/mm3 MPV 9.2 (7.0-11.0) fL Neut % (Auto) 85.8 H (16.0-70.0) % Lymph % (Auto) 3.4 L (9.0-44.0) % Bethel % (Auto) 10.5 H (0.0-8.0) % Eos % (Auto) 0.1 (0.0-4.0) % Baso % (Auto) 0.2 (0.0-2.0) % Neut # (Auto) 12.9 H (1.8-7.7) th/mm3 Lymph # (Auto) 0.5 L (1.0-4.8) th/mm3 Bethel # (Auto) 1.6 H (0.0-0.9) th/mm3 Eos # (Auto) 0.0 (0.0-0.4) th/mm3 Baso # (Auto) 0.0 (0.0-0.2) th/mm3 WBC Differential . Differential Comment Auto diff final ESR (0-20) mm/hr PT 10.3 (9.8-11.6) sec INR 1.0 Ratio APTT 30.1 (24.3-30.1) sec Sodium 128 L (136-145) meq/L Potassium 3.4 L (3.5-5.1) meq/L Chloride 93 L (98-107) meq/L Carbon Dioxide 22.4 (21.0-32.0) meq/L Anion Gap 13 (5-15) meq/L BUN 10 (7-18) mg/dL Creatinine 0.79 (0.60-1.30) mg/dL Estimated GFR Greater than 89 (>89) mL/min Random Glucose 94 (74-106) mg/dL Lactic Acid (0.4-2.0) mmol/L Calcium 9.2 (8.5-10.1) mg/dL Total Bilirubin 1.5 H (0.2-1.0) mg/dL AST 15 (15-37) U/L ALT 14 (12-78) U/L Alkaline Phosphatase 123 H (45-117) U/L C-Reactive Protein (0.00-0.30) mg/dL B-Natriuretic Peptide (0-100) pg/mL Total Protein 8.9 H (6.4-8.2) g/dL Albumin 2.9 L (3.4-5.0) g/dL 05/24/18 05/24/18 05/24/18 Range/Units 17:25 17:25 17:25 WBC (4.0-11.0) th/mm3 RBC (4.50-5.90) mil/mm3 Hgb (13.0-17.0) gm/dL Hct (39.0-51.0) % MCV (80.0-100.0) fL MCH (27.0-34.0) pg MCHC (32.0-36.0) % RDW (11.6-17.2) % Plt Count (150-450) th/mm3 MPV (7.0-11.0) fL Neut % (Auto) (16.0-70.0) % Lymph % (Auto) (9.0-44.0) % Bethel % (Auto) (0.0-8.0) % Eos % (Auto) (0.0-4.0) % Baso % (Auto) (0.0-2.0) % Neut # (Auto) (1.8-7.7) th/mm3 Lymph # (Auto) (1.0-4.8) th/mm3 Bethel # (Auto) (0.0-0.9) th/mm3 Eos # (Auto) (0.0-0.4) th/mm3 Baso # (Auto) (0.0-0.2) th/mm3 WBC Differential Differential Comment ESR 18 (0-20) mm/hr PT (9.8-11.6) sec INR Ratio APTT (24.3-30.1) sec Sodium (136-145) meq/L Potassium (3.5-5.1) meq/L Chloride (98-107) meq/L Carbon Dioxide (21.0-32.0) meq/L Anion Gap (5-15) meq/L BUN (7-18) mg/dL Creatinine (0.60-1.30) mg/dL Estimated GFR (>89) mL/min Random Glucose (74-106) mg/dL Lactic Acid 1.9 (0.4-2.0) mmol/L Calcium (8.5-10.1) mg/dL Total Bilirubin (0.2-1.0) mg/dL AST (15-37) U/L ALT (12-78) U/L Alkaline Phosphatase (45-117) U/L C-Reactive Protein 26.00 H (0.00-0.30) mg/dL B-Natriuretic Peptide (0-100) pg/mL Total Protein (6.4-8.2) g/dL Albumin (3.4-5.0) g/dL 05/24/18 Range/Units 17:25 WBC (4.0-11.0) th/mm3 RBC (4.50-5.90) mil/mm3 Hgb (13.0-17.0) gm/dL Hct (39.0-51.0) % MCV (80.0-100.0) fL MCH (27.0-34.0) pg MCHC (32.0-36.0) % RDW (11.6-17.2) % Plt Count (150-450) th/mm3 MPV (7.0-11.0) fL Neut % (Auto) (16.0-70.0) % Lymph % (Auto) (9.0-44.0) % Bethel % (Auto) (0.0-8.0) % Eos % (Auto) (0.0-4.0) % Baso % (Auto) (0.0-2.0) % Neut # (Auto) (1.8-7.7) th/mm3 Lymph # (Auto) (1.0-4.8) th/mm3 Bethel # (Auto) (0.0-0.9) th/mm3 Eos # (Auto) (0.0-0.4) th/mm3 Baso # (Auto) (0.0-0.2) th/mm3 WBC Differential Differential Comment ESR (0-20) mm/hr PT (9.8-11.6) sec INR Ratio APTT (24.3-30.1) sec Sodium (136-145) meq/L Potassium (3.5-5.1) meq/L Chloride (98-107) meq/L Carbon Dioxide (21.0-32.0) meq/L Anion Gap (5-15) meq/L BUN (7-18) mg/dL Creatinine (0.60-1.30) mg/dL Estimated GFR (>89) mL/min Random Glucose (74-106) mg/dL Lactic Acid (0.4-2.0) mmol/L Calcium (8.5-10.1) mg/dL Total Bilirubin (0.2-1.0) mg/dL AST (15-37) U/L ALT (12-78) U/L Alkaline Phosphatase (45-117) U/L C-Reactive Protein (0.00-0.30) mg/dL B-Natriuretic Peptide 17 (0-100) pg/mL Total Protein (6.4-8.2) g/dL Albumin (3.4-5.0) g/dL Imaging Data Radiologist's impression: Foot X-Ray 05/24/18 00:00 CONCLUSION: 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 No acute bony abnormality. Soft tissue swelling present. Chest X-Ray 05/24/18 17:15 CONCLUSION: Negative examination. Venous Doppler Study 05/24/18 18:38 CONCLUSION: 1. The study is negative for bilateral lower extremity deep venous thrombosis. Discharge Plan Discharge Disposition Patient Disposition: 30 Still Patient Discharge Condition Condition: Stable Discharge Details Diagnosis: Acute hyponatremia, Weakness, Cellulitis, Acquired torticollis Physicians Team ED Provider: Tera Hernandez ED Midlevel Provider: Samira Stuart Primary Care Provider: CAROLYNN, Attending Provider: Sav Fitzgerald Other Providers: Radha Up Status ED Status: Left Department Discharge Information Discharge Date/Time: 05/24/18 20:05
[2018-05-24 17:47] LABS: Baso % (Auto) 0.2 % (0.0-2.0); Eos % (Auto) 0.1 % (0.0-4.0); Hemoglobin 17.1 gm/dL (13.0-17.0); Lymph # (Auto) 0.5 th/mm3 (1.0-4.8); Lymph % (Auto) 3.4 % (9.0-44.0); Mean Corpuscular HGB Conc 34.2 % (32.0-36.0); Mean Corpuscular Hemoglobin 33.1 pg (27.0-34.0); Mean Corpuscular Volume 96.6 fL (80.0-100.0); Mean Platelet Volume 9.2 fL (7.0-11.0); Mono # (Auto) 1.6 th/mm3 (0.0-0.9); Mono % (Auto) 10.5 % (0.0-8.0); Neut # (Auto) 12.9 th/mm3 (1.8-7.7); Neut % (Auto) 85.8 % (16.0-70.0); Platelet Count 281 th/mm3 (150-450); Red Blood Count 5.17 mil/mm3 (4.50-5.90); Red Cell Distribution Width 13.7 % (11.6-17.2)
--- NOTE | 2018-05-24 17:58 | XR ---
EXAM DATE: 05/24/2018 5:56 PM EDT AGE/SEX: 73 years / Male INDICATIONS: Fever. CLINICAL DATA: This is the patient's initial encounter. Patient reports that signs and symptoms have been present for 1 day and indicates a pain score of 0/10. MEDICAL/SURGICAL HISTORY: Hypertension. Smoker. None. COMPARISON: [facility] [place], CHEST SINGLE AP, 08/08/2017. . FINDINGS: A single AP view of the chest demonstrates the lungs to be symmetrically aerated without evidence of mass, infiltrate or effusion. The cardiomediastinal contours are unremarkable. Osseous structures a re intact. CONCLUSION: Negative examination. Electronically signed by: Jeff Douglass MD 05/24/2018 5:57 PM EDT
[2018-05-24] MEDS ORDERED: Acetaminophen 325 MG Tablet PO ONE (18:04)
[2018-05-24] MEDS ORDERED: Piperacil/Tazo 4.5 GM Premix 4.5 GM/100 ML BAG IV.SIG STA (18:04)
[2018-05-24 18:07] LABS: Albumin 2.9 g/dL (3.4-5.0); Anion Gap 13 meq/L (5-15); Aspartate Aminotransferase 15 U/L (15-37); Blood Urea Nitrogen 10 mg/dL (7-18); Calcium 9.2 mg/dL (8.5-10.1); Carbon Dioxide 22.4 meq/L (21.0-32.0); Chloride 93 meq/L (98-107); Glomerular Filtration Rate Greater Than 89 mL/min (>89); Glucose,Random 94 mg/dL (74-106); Potassium 3.4 meq/L (3.5-5.1); Sodium 128 meq/L (136-145)
[2018-05-24 18:08] LABS: Alanine Aminotransferase 14 U/L (12-78)
[2018-05-24 18:09] LABS: Activated Partial Thrombo Time 30.1 sec (24.3-30.1); Prothrombin Time 10.3 sec (9.8-11.6)
[2018-05-24 18:10] LABS: Alkaline Phosphatase 123 U/L (45-117); Total Protein 8.9 g/dL (6.4-8.2)
[2018-05-24] MEDS: Vancomycin Inj 1,500 MG in Sodium Chlor 0.9% Inj 500 ML IV.SIG STA ×2 (18:17→19:29)
[2018-05-24] MEDS ORDERED: SOD CHLORIDE 0.9% IV.SIG ONE (18:45)
[2018-05-24] MEDS ORDERED: Ketorolac Inj 30 MG/ML (IVP) Vial IV.PUSH ONE (18:52)
[2018-05-24] MEDS ORDERED: Bisacodyl 10 MG Supp RECTAL PRN (18:53)
--- NOTE | 2018-05-24 20:53 | US ---
EXAM DATE: 05/24/2018 8:43 PM EDT AGE/SEX: 73 years / Male INDICATIONS: Bilateral leg swelling. CLINICAL DATA: This is the patient's initial encounter. Patient reports that signs and symptoms have been present for 3 days and indicates a pain score of 0/10. MEDICAL/SURGICAL HISTORY: Sepsis. Carotid endarterectomy. COMPARISON: [facility] – [place], US LEG BILATERAL VENOUS DOPPLER, 07/28/2017. . TECHNIQUE: Venous ultrasound of both lower extremities was performed from the inguinal ligament to t he proximal calf. Real-time, color Doppler and spectral tracing, compression and augmentation techni ques were used. FINDINGS: Right Leg: Normal compression of the deep venous system from the inguinal region to the proximal perla f. No echogenic clot is seen. Normal response of the venous system to augmentation and respiration. Left Leg: Normal compression of the deep venous system from the inguinal region to the proximal calf . No echogenic clot is seen. Normal response of the venous system to augmentation and respiration. Other: None. CONCLUSION: 1. The study is negative for bilateral lower extremity deep venous thrombosis. Electronically signed by: Clarence Donis MD 05/24/2018 8:51 PM EDT
--- NOTE | 2018-05-24 21:17 | P.HPIM ---
History of Present Illness Primary Care Physician: UNKNOWN History of Present Illness: 73-year-old male with history of hypertension, CVA who presents with 3 day history of generalized weakness, right ankle swelling, left wrist swelling associated with constant dull nonradiating pain. He also reports posterior neck pain, axial spine pain described as constant, dull. Worse with movement. Denies any headache. He does report decreased appetite over the past several days. Hypertension CVA Carotid endarterectomy Bilateral knee replacement Left hip replacement Mother with hypertension. Father and old age Patient has been smoking 3 packs per day past 7 months. Patient reports drinking 1 ounce of vodka per day. No illicit drugs. Inpatient Certification: I certify that the inpatient services were ordered in accordance with Medicare regulations governing the order. This includes certification that hospital inpatient services are reasonable and necessary and in the case of services not specified as inpatient-only under 42 CFR 419.22(n), that they are appropriately provided as inpatient services in accordance to with the 2-midnight benchmark under 43 CFR 412.3(e) Estimated Total Length of Stay (Days): 3 Plans for Post Hospital Care: Home Review of Systems All other systems reviewed negative except as stated in HPI PMFSH - History History Provided By: Patient - Tobacco History Second Hand Smoke Exposure: Yes Tobacco Use In Past 30 Days: Yes Smoking Status: Current every day smoker Tobacco Type: Cigarettes - Alcohol History How Often Do You Have a Drink Containing Alcohol: 4 or more times a week - Travel History Recent Travel in the [place] Within the Last 8 Weeks: No Recent Travel Out of the Country Within the Last 8 Weeks: No - Immunization History Tetanus Immunization: Unsure Medications and Allergies Active Medications: Active Medications Al Hydroxide/Mg Hydroxide (Milk Of Magnesia Liq) 30 ml PO Q12H PRN PRN Reason: Mild Constipation Bisacodyl (Dulcolax Supp) 10 mg RECTAL DAILY PRN PRN Reason: SEVERE CONSITIPATION Piperacillin/Tazobactam/Dextrose (Zosyn 4.5 Gm Premix) 4.5 gm in 100 mls @ 200 mls/hr IV.SIG Q6H [facility] Pharmacy Profile Note (Vancomycin Consult Pharmacy) 0 mls @ 0 mls/hr OTHER UNSCH GOLDEN Lactulose (Lactulose Liq) 30 ml PO DAILY PRN PRN Reason: SEVERE CONSITIPATION Senna/Docusate Sodium (Asuncion-Colace) 1 tab PO BID [facility] Sennosides (Senokot) 17.2 mg PO Q12H PRN PRN Reason: Moderate Constipation Allergies Allergy/AdvReac Type Severity Reaction Status Date / Time No Known Allergies Allergy Uncoded 07/28/17 18:58 Home Medications Medication Instructions Recorded Confirmed Type amlodipine 05/24/18 History Exam Vital signs: Vital Signs 05/24/18 17:01 05/24/18 17:09 05/24/18 17:15 Temperature 100.0 F H Pulse Rate 103 H 106 H Respiratory Rate 18 18 Blood Pressure 168/86 H 168/86 H Pulse Oximetry 95 96 97 05/24/18 19:15 Temperature 98 F Pulse Rate 100 H Respiratory Rate 18 Blood Pressure 145/74 H Pulse Oximetry Intake & Output 05/24/18 05/24/18 05/25/18 06:59 18:59 06:59 Weight 83.915 kg Results - Labs CBC & Chem 7: 05/24/18 17:25 05/24/18 17:25 Labs: Short CBC 05/24/18 Range/Units 17:25 WBC 15.0 H (4.0-11.0) th/mm3 Hgb 17.1 H (13.0-17.0) gm/dL Hct 50.0 (39.0-51.0) % Plt Count 281 (150-450) th/mm3 BMP 05/24/18 17:25 Sodium 128 L Potassium 3.4 L Chloride 93 L Carbon Dioxide 22.4 BUN 10 Creatinine 0.79 Calcium 9.2 Liver Function 05/24/18 Range/Units 17:25 Total Bilirubin 1.5 H (0.2-1.0) mg/dL AST 15 (15-37) U/L ALT 14 (12-78) U/L Alkaline Phosphatase 123 H (45-117) U/L Albumin 2.9 L (3.4-5.0) g/dL - Imaging Impressions Chest X-Ray 05/24/18 17:15 CONCLUSION: Negative examination. Venous Doppler Study 05/24/18 18:38 CONCLUSION: 1. The study is negative for bilateral lower extremity deep venous thrombosis. Caprini VTE Risk Assessment Caprini VTE Risk Assessment: Moderate/High Risk (score >= 2) Caprini Risk Assessment Model: Point Value = 1 Point Value = 2 Point Value = 3 Point Value = 5 Age 41-60 Minor surgery BMI > 25 kg/m2 Swollen legs Varicose veins or History of unexplained or recurrent spontaneous Oral contraceptives or hormone replacement Sepsis (< 1 month) Serious lung disease, including pneumonia (< 1 month) Abnormal pulmonary function Acute myocardial infarction Congestive heart failure (< 1 month) History of inflammatory bowel disease Medical patient at bed rest Age 61-74 Arthroscopic surgery Major open surgery (> 45 min) Laparoscopic surgery (> 45 min) Malignancy Confined to bed (> 72 hours) Immobilizing plaster cast Central venous access Age >= 75 History of VTE Family history of VTE Factor V Leiden Prothrombin [id number] Lupus anticoagulant Anticardiolipin antibodies Elevated serum homocysteine Heparin-induced thrombocytopenia Other congenital or acquired thrombophilia Stroke (< 1 month) Elective arthroplasty Hip, pelvis, or leg fracture Acute spinal cord injury (< 1 month) Prophylaxis Regimen: Total Risk Factor Score Risk Level Prophylaxis Regimen 0-1 Low Early ambulation 2 Moderate Order ONE of the following: *Sequential Compression Device (SCD) *Heparin 5000 units SQ BID 3-4 Higher Order ONE of the following medications: *Heparin 5000 units SQ TID *Enoxaparin/Lovenox 40 mg SQ daily (WT < 150 kg, CrCl > 30 mL/min) *Enoxaparin/Lovenox 30 mg SQ daily (WT < 150 kg, CrCl > 10-29 mL/min) *Enoxaparin/Lovenox 30 mg SQ BID (WT < 150 kg, CrCl > 30 mL/min) AND/OR *Sequential Compression Device (SCD) 5 or more Highest Order ONE of the following medications: *Heparin 5000 units SQ TID (Preferred with Epidurals) *Enoxaparin/Lovenox 40 mg SQ daily (WT < 150 kg, CrCl > 30 mL/min) *Enoxaparin/Lovenox 30 mg SQ daily (WT < 150 kg, CrCl > 10-29 mL/min) *Enoxaparin/Lovenox 30 mg SQ BID (WT < 150 kg, CrCl > 30 mL/min) AND *Sequential Compression Device (SCD) Assessment and Plan - Plan //Sepsis Tachycardia, leukocytosis of 15, right lower extremity cellulitis. = Lactate 1.9. Broad-spectrum antibiotics. Follow-up cultures. //Polyarthritis = Could be gonococcal versus Antonia's syndrome secondary to recent diarrhea. Consult infectious disease. //Right lower extremity swelling. Follow-up ultrasound to rule out DVT //History of hypertension. Blood pressure appears acceptable. As needed blood pressure medications ordered. //Hypernatremia. Sodium 128. Likely secondary to decreased appetite secondary to sepsis. Normal saline. Monitor. Discussed Condition With: Patient, nurse, Dr. Fitzgerald
--- NOTE | 2018-05-24 21:46 | XR ---
EXAM DATE: 05/24/2018 9:38 PM EDT AGE/SEX: 73 years / Male INDICATIONS: Right foot pain and swelling with no known injury. CLINICAL DATA: This is the patient's initial encounter. Patient reports that signs and symptoms have been present for 4 - 6 days and indicates a pain score of 10/10. MEDICAL/SURGICAL HISTORY: None. None. COMPARISON: No prior exams available for comparison. FINDINGS: There is mild to moderate osteoarthritis of the right foot. Soft tissue swelling is present. No acute fracture or dislocation. 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 No acute bony abnormality. Soft tissue swelling pr esent. Electronically signed by: Clarence Donis MD 05/24/2018 9:44 PM EDT
[2018-05-24] MEDS ORDERED: Vancomycin Consult Pharmacy 1 EACH OTHER SCH (22:00)
[2018-05-24] MEDS: Senna/Docusate Sodium 8.6/50 MG Tablet PO SCH (22:59)
[2018-05-25] MEDS: Piperacil/Tazo 4.5 GM Premix 4.5 GM/100 ML BAG IV.SIG SCH ×4 (00:42→13:41)
[2018-05-25] MEDS: Vancomycin Inj 1,250 MG in Sodium Chlor 0.9% Inj 250 ML IV.SIG SCH ×2 (08:53→20:30)
[2018-05-25] MEDS: Senna/Docusate Sodium 8.6/50 MG Tablet PO SCH ×2 (08:53→23:09)
--- NOTE | 2018-05-25 11:53 | P.CONID ---
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), C spine remote fusion presented with denilson complaint of new RLE swelling, generalysed weakness and new onset severe neck pain temp 100.0 F on admission, WBC 15K and normal sed rate Pt was sstatrted on zosyn and vancoycin and he is afebrile Review of Systems All other systems reviewed negative except as stated in HPI PMFSH - History History Provided By: Patient, Medical Record - Family History Family History: Family History (Last Updated 07/18/18 @ 13:14 by Radha Up MD) Other No pertinent family history - Social History I have reviewed the patient's Social History: Yes - Tobacco History Second Hand Smoke Exposure: No Tobacco Use In Past 30 Days: Yes Smoking Status: Current every day smoker Tobacco Type: Cigarettes - Alcohol History How Often Do You Have a Drink Containing Alcohol: 4 or more times a week - Substance Use History Substance History: No History of Abuse - Travel History Recent Travel in the [place] Within the Last 8 Weeks: No Recent Travel Out of the Country Within the Last 8 Weeks: No - Immunization History Tetanus Immunization: Unsure Medications and Allergies Active Medications: Active Medications Al Hydroxide/Mg Hydroxide (Milk Of Magnesia Liq) 30 ml PO Q12H PRN PRN Reason: Mild Constipation Bisacodyl (Dulcolax Supp) 10 mg RECTAL DAILY PRN PRN Reason: SEVERE CONSITIPATION Piperacillin/Tazobactam/Dextrose (Zosyn 4.5 Gm Premix) 4.5 gm in 100 mls @ 200 mls/hr IV.SIG Q6H [facility] Last Infusion: 05/25/18 06:35 Dose: Infused Pharmacy Profile Note (Vancomycin Consult Pharmacy) 0 mls @ 0 mls/hr OTHER [facility] Vancomycin HCl 1,250 mg/ (Sodium Chloride) 262.5 mls @ 250 mls/hr IV.SIG Q12H [facility] Last Admin: 05/25/18 08:53 Dose: 250 mls/hr Lactulose (Lactulose Liq) 30 ml PO DAILY PRN PRN Reason: SEVERE CONSITIPATION Miscellaneous Information ([facility] Ordered Lab Info) 0 each OTHER ONCE ONE Stop: 05/26/18 07:46 Senna/Docusate Sodium (Asuncion-Colace) 1 tab PO BID [facility] Last Admin: 05/25/18 08:53 Dose: Not Given Sennosides (Senokot) 17.2 mg PO Q12H PRN PRN Reason: Moderate Constipation Allergies Allergy/AdvReac Type Severity Reaction Status Date / Time No Known Allergies Allergy Uncoded 07/28/17 18:58 Exam Vital signs: Vital Signs 05/24/18 17:01 05/24/18 17:09 05/24/18 17:15 Temperature 100.0 F H Pulse Rate 103 H 106 H Respiratory Rate 18 18 Blood Pressure 168/86 H 168/86 H Pulse Oximetry 95 96 97 05/24/18 19:15 05/24/18 20:25 05/24/18 21:05 Temperature 98 F 97.1 F L Pulse Rate 100 H 97 H 103 H Respiratory Rate 18 18 Blood Pressure 145/74 H 126/76 Pulse Oximetry 97 05/25/18 00:00 05/25/18 04:00 05/25/18 08:00 Temperature 97.3 F L 97.4 F L 97.9 F Pulse Rate 71 82 92 H Respiratory Rate 18 18 20 Blood Pressure 138/70 144/78 H 133/72 Pulse Oximetry 97 96 96 Intake & Output 05/24/18 05/25/18 05/25/18 18:59 06:59 18:59 Intake Total 2825 / 2825 Output Total 1550 / 1550 Balance 1275 / 1275 Weight 83.915 kg 95.8 kg Intake: IV 2825 / 2825 Zosyn 4.5 GM Premix 4.5 gm In 300 / 300 100 ml @ 200 mls/hr IV.SIG Q6H [facility] Rx#:[id number] NS Inj 2,500 ML @ Wide Open IV. 1000 / 1000 SIG BOLUS ONE Rx#:[id number] Vancomycin Inj 1,500 MG In NS 525 / 525 Inj 500 ML @ 250 mls/hr IV.SIG STAT [facility] Rx#:[id number] Oral 0 / 0 Output: Urine 1550 / 1550 Other: # Bowel Movements 0 Weight On Admission 95.2 kg - Constitutional no acute distress, average body habitus - Routine HEENT Exam Head: Present: normocephalic, atraumatic Eye: Present: EOMI, PERRL ENT: Present: mucous membranes moist, oropharynx clear Comments: poor dentition - Routine Neck Exam Present: supple Comments: neck is tender to palpation limited ROM 2/2 pain - Routine Respiratory Exam Present: decreased breath sounds, CTA bilaterally - Routine Cardiovascular Exam Present: RRR, S1, S2 Comments: distant heart sound no mumrums rubs gallops - Routine Abdominal Exam Present: soft, normoactive bowel sounds Comments: no organomeglay or masses - Routine Extremities Exam Comments: no cyanosis, clubbing + varices b/l LE RLE with mild 1+ soft pitting edema minimal erythema noted on the R cabrera not tender to palpation well healed scars cw bl lnee replacements - Routine Skin Exam Present: intact, dry, warm, scars (surgical, well healed) - Routine Neurological Exam Present: alert, oriented X3, moving all extremities, vision grossly intact, hearing grossly intact, normal speech - Routine Psychiatric Exam Present: normal affect, normal thought process, cooperative Results - Labs CBC & Chem 7: 05/27/18 08:01 05/29/18 08:50 Labs: Laboratory Results - last 24 hr 05/24/18 05/24/18 05/24/18 17:25 17:25 17:25 WBC 15.0 H RBC 5.17 Hgb 17.1 H Hct 50.0 MCV 96.6 MCH 33.1 MCHC 34.2 RDW 13.7 Plt Count 281 MPV 9.2 Neut % (Auto) 85.8 H Lymph % (Auto) 3.4 L Mcclain % (Auto) 10.5 H Eos % (Auto) 0.1 Baso % (Auto) 0.2 Neut # (Auto) 12.9 H Lymph # (Auto) 0.5 L Mcclain # (Auto) 1.6 H Eos # (Auto) 0.0 Baso # (Auto) 0.0 WBC Differential . Differential Comment Auto diff final ESR PT 10.3 INR 1.0 APTT 30.1 Sodium 128 L Potassium 3.4 L Chloride 93 L Carbon Dioxide 22.4 Anion Gap 13 BUN 10 Creatinine 0.79 Estimated GFR Greater than 89 Random Glucose 94 Lactic Acid Calcium 9.2 Total Bilirubin 1.5 H AST 15 ALT 14 Alkaline Phosphatase 123 H C-Reactive Protein B-Natriuretic Peptide Total Protein 8.9 H Albumin 2.9 L 05/24/18 05/24/18 05/24/18 17:25 17:25 17:25 WBC RBC Hgb Hct MCV MCH MCHC RDW Plt Count MPV Neut % (Auto) Lymph % (Auto) Mcclain % (Auto) Eos % (Auto) Baso % (Auto) Neut # (Auto) Lymph # (Auto) Mcclain # (Auto) Eos # (Auto) Baso # (Auto) WBC Differential Differential Comment ESR 18 PT INR APTT Sodium Potassium Chloride Carbon Dioxide Anion Gap BUN Creatinine Estimated GFR Random Glucose Lactic Acid 1.9 Calcium Total Bilirubin AST ALT Alkaline Phosphatase C-Reactive Protein 26.00 H B-Natriuretic Peptide Total Protein Albumin 05/24/18 17:25 WBC RBC Hgb Hct MCV MCH MCHC RDW Plt Count MPV Neut % (Auto) Lymph % (Auto) Mcclain % (Auto) Eos % (Auto) Baso % (Auto) Neut # (Auto) Lymph # (Auto) Mcclain # (Auto) Eos # (Auto) Baso # (Auto) WBC Differential Differential Comment ESR PT INR APTT Sodium Potassium Chloride Carbon Dioxide Anion Gap BUN Creatinine Estimated GFR Random Glucose Lactic Acid Calcium Total Bilirubin AST ALT Alkaline Phosphatase C-Reactive Protein B-Natriuretic Peptide 17 Total Protein Albumin - Imaging Impressions Foot X-Ray 05/24/18 00:00 CONCLUSION: 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 No acute bony abnormality. Soft tissue swelling present. Chest X-Ray 05/24/18 17:15 CONCLUSION: Negative examination. Venous Doppler Study 05/24/18 18:38 CONCLUSION: 1. The study is negative for bilateral lower extremity deep venous thrombosis. Assessment and Plan - Plan very mild cellulitis RLE ? resolved fever, leukocytosis new neck pain, acute x 3 days - pt stated he did not have neck pain x 10 yrs cont cuttent abx fu P clx neck MRI
[2018-05-25 14:10] LABS: Hemoglobin 16.5 gm/dL (13.0-17.0); Mean Corpuscular HGB Conc 33.6 % (32.0-36.0); Mean Corpuscular Hemoglobin 33.1 pg (27.0-34.0); Mean Corpuscular Volume 98.4 fL (80.0-100.0); Mean Platelet Volume 8.9 fL (7.0-11.0); Platelet Count 243 th/mm3 (150-450); Red Blood Count 4.98 mil/mm3 (4.50-5.90); Red Cell Distribution Width 13.8 % (11.6-17.2); White Blood Count 14.4 th/mm3 (4.0-11.0)
[2018-05-25] MEDS ORDERED: MethylPREDNISolone Sod Succinate Inj 125 MG/2 ML Vial IV.PUSH ONE (14:23)
[2018-05-25] MEDS ORDERED: Phenol 1.4% 180 ML Spray Bottle OROPHARYNG PRN (14:25)
[2018-05-25 14:28] LABS: Anion Gap 7 meq/L (5-15); Blood Urea Nitrogen 11 mg/dL (7-18); Calcium 8.4 mg/dL (8.5-10.1); Carbon Dioxide 23.5 meq/L (21.0-32.0); Chloride 104 meq/L (98-107); Glomerular Filtration Rate Greater Than 89 mL/min (>89); Glucose,Random 84 mg/dL (74-106); Potassium 3.4 meq/L (3.5-5.1); Sodium 134 meq/L (136-145)
[2018-05-25] MEDS: Morphine Inj 4 MG/ML Vial IV.PUSH PRN (15:26)
--- NOTE | 2018-05-25 16:13 | P.PN ---
Subjective Interval history: 73-year-old male, states pain is about the same as when he came into the ER. He was admitted for polyarthritis including neck pain. Physical Exam Vital signs: Vital Signs 05/24/18 17:01 05/24/18 17:09 05/24/18 17:15 Temperature 100.0 F H Pulse Rate 103 H 106 H Respiratory Rate 18 18 Blood Pressure 168/86 H 168/86 H Pulse Oximetry 95 96 97 05/24/18 19:15 05/24/18 20:25 05/24/18 21:05 Temperature 98 F 97.1 F L Pulse Rate 100 H 97 H 103 H Respiratory Rate 18 18 Blood Pressure 145/74 H 126/76 Pulse Oximetry 97 05/25/18 00:00 05/25/18 04:00 05/25/18 08:00 Temperature 97.3 F L 97.4 F L 97.9 F Pulse Rate 71 82 92 H Respiratory Rate 18 18 20 Blood Pressure 138/70 144/78 H 133/72 Pulse Oximetry 97 96 96 05/25/18 12:00 Temperature 97.4 F L Pulse Rate 82 Respiratory Rate 20 Blood Pressure 125/78 Pulse Oximetry 95 Intake & Output 05/24/18 05/25/18 05/25/18 18:59 06:59 18:59 Intake Total 2825 / 2825 362.5 / 362.5 Output Total 1550 / 1550 Balance 1275 / 1275 362.5 / 362.5 Weight 83.915 kg 95.8 kg Intake: IV 2825 / 2825 362.5 / 362.5 Zosyn 4.5 GM Premix 4.5 gm In 300 / 300 100 / 100 100 ml @ 200 mls/hr IV.SIG Q6H [facility] Rx#:[id number] NS Inj 2,500 ML @ Wide Open IV. 1000 / 1000 SIG BOLUS ONE Rx#:[id number] Vancomycin Inj 1,250 MG In NS 262.5 / 262.5 Inj 250 ML @ 250 mls/hr IV.SIG Q12H [facility] Rx#:[id number] Vancomycin Inj 1,500 MG In NS 525 / 525 Inj 500 ML @ 250 mls/hr IV.SIG STAT STA Rx#:[id number] Oral 0 / 0 Output: Urine 1550 / 1550 Other: # Bowel Movements 0 Weight On Admission 95.2 kg Narrative: GENERAL: AAOx3, in pain SKIN: Warm and dry. No rashes HEAD: Atruamtic, normocephalic. EYES: No scleral icterus. No injection or drainage. ENT: Moist mucous membranes, patent nares, no erythema of oropharynx. NECK: Supple, trachea midline. No JVD or lymphadenopathy. Normal thyroid. CARDIOVASCULAR: Regular rate and rhythm. No murmurs, gallops, or rubs. RESPIRATORY: Breath sounds clear equal bilaterally. No crackles or wheezes. No accessory muscle use. GASTROINTESTINAL: Abdomen soft, non-tender, nondistended, normal active bowel sounds MUSCULOSKELETAL: Swollen tender bilateral ankles, markedly swollen right hand, stiff neck NEURO: CN II-XII grossly intact, no focal deficits, no slurring of speech, no photophobia Results - Labs CBC & Chem 7: 05/25/18 13:45 05/25/18 13:45 Laboratory Results - last 24 hr 05/24/18 05/24/18 05/24/18 17:25 17:25 17:25 WBC 15.0 H RBC 5.17 Hgb 17.1 H Hct 50.0 MCV 96.6 MCH 33.1 MCHC 34.2 RDW 13.7 Plt Count 281 MPV 9.2 Neut % (Auto) 85.8 H Lymph % (Auto) 3.4 L Edmunds % (Auto) 10.5 H Eos % (Auto) 0.1 Baso % (Auto) 0.2 Neut # (Auto) 12.9 H Lymph # (Auto) 0.5 L Edmunds # (Auto) 1.6 H Eos # (Auto) 0.0 Baso # (Auto) 0.0 WBC Differential . Differential Comment Auto diff final ESR PT 10.3 INR 1.0 APTT 30.1 Sodium 128 L Potassium 3.4 L Chloride 93 L Carbon Dioxide 22.4 Anion Gap 13 BUN 10 Creatinine 0.79 Estimated GFR Greater than 89 Random Glucose 94 Lactic Acid Calcium 9.2 Total Bilirubin 1.5 H AST 15 ALT 14 Alkaline Phosphatase 123 H C-Reactive Protein B-Natriuretic Peptide Total Protein 8.9 H Albumin 2.9 L 05/24/18 05/24/18 05/24/18 17:25 17:25 17:25 WBC RBC Hgb Hct MCV MCH MCHC RDW Plt Count MPV Neut % (Auto) Lymph % (Auto) Edmunds % (Auto) Eos % (Auto) Baso % (Auto) Neut # (Auto) Lymph # (Auto) Edmunds # (Auto) Eos # (Auto) Baso # (Auto) WBC Differential Differential Comment ESR 18 PT INR APTT Sodium Potassium Chloride Carbon Dioxide Anion Gap BUN Creatinine Estimated GFR Random Glucose Lactic Acid 1.9 Calcium Total Bilirubin AST ALT Alkaline Phosphatase C-Reactive Protein 26.00 H B-Natriuretic Peptide Total Protein Albumin 05/24/18 05/25/18 05/25/18 17:25 13:45 13:45 WBC 14.4 H RBC 4.98 Hgb 16.5 Hct 49.0 MCV 98.4 MCH 33.1 MCHC 33.6 RDW 13.8 Plt Count 243 MPV 8.9 Neut % (Auto) Lymph % (Auto) Edmunds % (Auto) Eos % (Auto) Baso % (Auto) Neut # (Auto) Lymph # (Auto) Ed[place]ds # (Auto) Eos # (Auto) Baso # (Auto) WBC Differential Differential Comment ESR PT INR APTT Sodium 134 L Potassium 3.4 L Chloride 104 D Carbon Dioxide 23.5 Anion Gap 7 BUN 11 Creatinine 0.78 Estimated GFR Greater than 89 Random Glucose 84 Lactic Acid Calcium 8.4 L D Total Bilirubin AST ALT Alkaline Phosphatase C-Reactive Protein 22.10 H B-Natriuretic Peptide 17 Total Protein Albumin Microbiology 05/24/18 17:25 Blood - Peripheral Aerobic Blood Culture - Preliminary No growth in 1 day 05/24/18 17:25 Blood - Peripheral Anaerobic Blood Culture - Preliminary No growth in 1 day 05/24/18 17:32 Blood - Peripheral Aerobic Blood Culture - Preliminary No growth in 1 day 05/24/18 17:32 Blood - Peripheral Anaerobic Blood Culture - Preliminary No growth in 1 day - Imaging Impressions Foot X-Ray 05/24/18 00:00 CONCLUSION: 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 No acute bony abnormality. Soft tissue swelling present. Chest X-Ray 05/24/18 17:15 CONCLUSION: Negative examination. Venous Doppler Study 05/24/18 18:38 CONCLUSION: 1. The study is negative for bilateral lower extremity deep venous thrombosis. Assessment and Plan - Plan Sepsis Tachycardia, leukocytosis, cellulitis, lactic acid 1.9 Continue IV vancomycin and Zosyn Infectious disease ordered MRI of neck Blood cultures pending Appreciate infectious disease consult Polyarthritis Pain not adequately relieved with Toradol GC chlamydia PCR, RPR, antistreptolysin antibody O, uric acid, rheumatoid factor ordered Consider Antonia's syndrome secondary to recent diarrhea Solu-Medrol 125 mg 1 ordered for coverage of pain and swelling Hyponatremia 128 on admission, 134 following IV fluids Continue IV fluids DVT Prophylaxis Lovenox
[2018-05-25] MEDS: Enoxaparin Inj 40 MG/0.4 ML Syringe SQ SCH (17:58)
[2018-05-25] MEDS ORDERED: Gadobutrol PF 10 MMOL/10 ML Vial (for RAD) IV.SIG ONE (22:15)
[2018-05-25 22:25] LABS: Uric Acid 3.2 mg/dl (2.6-7.2)
--- NOTE | 2018-05-25 22:55 | MR ---
EXAM DATE: 05/25/2018 10:37 PM EDT AGE/SEX: 73 years / Male INDICATIONS: . Neck pain with fever. CLINICAL DATA: This is the patient's initial encounter. Patient reports that signs and symptoms have been present for 2 days and indicates a pain score of 4/10. MEDICAL/SURGICAL HISTORY: None. Total knee replacement, left. Total knee replacement, right. Fusion, cervical. Bilateral hip replacements. COMPARISON: No prior exams available for comparison. TECHNIQUE: Multiplanar, multisequence MRI examination of the cervical spine was performed without an d with 9.5 ml Gadavist (gadobutrol) contrast as a single exam dose. FINDINGS: At C2-3 there is degenerative change without stenosis. At C3-4 there is a broad-based posterior disc osteophyte complex resulting in moderate AP canal steno sis and mild cord compression. No cord edema. There is previous fusion across C4-5-6 with some residual osteophytic ridging but without significant canal stenosis. Mild foraminal encroachment at these levels. At C6-7 and C7-T1 there is degenerative change without significant stenosis. No abnormal epidural fluid collections are present. No abnormal enhancement within the canal noted po st contrast. CONCLUSION: 1. At C3-4 there is a broad-based disc osteophyte complex with moderate AP canal stenosis and mild c ord compression. No cord edema. 2. Postoperative fusion from C4 through C6 without significant residual central canal stenosis. 3. No abnormal epidural fluid collections. No abnormal enhancing lesions within the canal postcontra st. Electronically signed by: Clarence Donis MD 05/25/2018 10:54 PM EDT
[2018-05-26] MEDS: Piperacil/Tazo 4.5 GM Premix 4.5 GM/100 ML BAG IV.SIG SCH ×6 (00:08→23:58)
[2018-05-26] MEDS ORDERED: Pharmacy Ordered Lab Info OTHER ONE (07:45)
[2018-05-26] MEDS: Senna/Docusate Sodium 8.6/50 MG Tablet PO SCH ×2 (09:00→22:07)
[2018-05-26] MEDS: Vancomycin Inj 1,250 MG in Sodium Chlor 0.9% Inj 250 ML IV.SIG SCH ×2 (09:31→22:07)
[2018-05-26] MEDS: Enoxaparin Inj 40 MG/0.4 ML Syringe SQ SCH (17:41)
--- NOTE | 2018-05-26 17:50 | P.PN ---
Subjective Interval history: Patient is ambulatory again and able to use his right hand. He states he feels much better regarding his inflammatory joints. Sore throat is also improved. He denies any fever, denies nausea or vomiting. Physical Exam Vital signs: Vital Signs 05/25/18 20:00 05/25/18 23:07 05/26/18 00:00 Temperature 98.9 F 98.1 F Pulse Rate 83 78 Respiratory Rate 20 20 18 Blood Pressure 148/89 H 118/82 Pulse Oximetry 96 93 L 05/26/18 04:00 05/26/18 05:10 05/26/18 08:00 Temperature 97.4 F L 97.3 F L Pulse Rate 61 62 Respiratory Rate 18 20 18 Blood Pressure 162/86 H 170/97 H Pulse Oximetry 97 96 05/26/18 12:00 05/26/18 16:00 Temperature 97.5 F L 97.6 F Pulse Rate 101 H 89 Respiratory Rate 18 18 Blood Pressure 148/97 H 140/88 Pulse Oximetry 94 L 95 Intake & Output 05/25/18 05/26/18 05/26/18 18:59 06:59 18:59 Intake Total 1182.5 / 1182.5 1610 / 1610 362.5 / 362.5 Output Total 300 / 300 1550 / 1550 Balance 882.5 / 882.5 60 / 60 362.5 / 362.5 Weight 97 kg Intake: IV 462.5 / 462.5 700 / 700 362.5 / 362.5 Zosyn 4.5 GM Premix 4.5 gm In 200 / 200 200 / 200 100 / 100 100 ml @ 200 mls/hr IV.SIG Q6H [facility] Rx#:[id number] Vancomycin Inj 1,250 MG In NS 262.5 / 262.5 500 / 500 262.5 / 262.5 Inj 250 ML @ 250 mls/hr IV.SIG Q12H [facility] Rx#:[id number] Oral 720 / 720 910 / 910 Output: Urine 300 / 300 1550 / 1550 Other: Date of Last Bowel Movement 05/26/18 # Bowel Movements 1 1 Narrative: GENERAL: AAOx3, no acute distress SKIN: Warm and dry. No rashes HEAD: Atruamtic, normocephalic. EYES: No scleral icterus. No injection or drainage. ENT: Moist mucous membranes, patent nares, no erythema of oropharynx. NECK: Supple, trachea midline. No JVD or lymphadenopathy. Normal thyroid. CARDIOVASCULAR: Regular rate and rhythm. No murmurs, gallops, or rubs. RESPIRATORY: Breath sounds clear equal bilaterally. No crackles or wheezes. No accessory muscle use. GASTROINTESTINAL: Abdomen soft, non-tender, nondistended, normal active bowel sounds MUSCULOSKELETAL: Swollen bilateral ankles and right hand are about 80% improved NEURO: CN II-XII grossly intact, no focal deficits, no slurring of speech, no photophobia Results - Labs CBC & Chem 7: 05/25/18 13:45 05/25/18 13:45 Laboratory Results - last 24 hr 05/25/18 05/25/18 05/25/18 21:23 21:23 21:23 Uric Acid 3.2 Vancomycin Trough Rheumatoid Factor Scrn Negative Rheumatoid Factor Titer Not Reportable RPR Nonreactive Anti-Streptolysin Scrn Neg 05/26/18 09:12 Uric Acid Vancomycin Trough 14.4 H Rheumatoid Factor Scrn Rheumatoid Factor Titer RPR Anti-Streptolysin Scrn Microbiology 05/24/18 17:25 Blood - Peripheral Aerobic Blood Culture - Preliminary No growth in 2 days 05/24/18 17:25 Blood - Peripheral Anaerobic Blood Culture - Preliminary No growth in 2 days 05/24/18 17:32 Blood - Peripheral Aerobic Blood Culture - Preliminary No growth in 2 days 05/24/18 17:32 Blood - Peripheral Anaerobic Blood Culture - Preliminary No growth in 2 days - Imaging Impressions Cervical Spine MRI 05/25/18 00:00 CONCLUSION: 1. At C3-4 there is a broad-based disc osteophyte complex with moderate AP canal stenosis and mild cord compression. No cord edema. 2. Postoperative fusion from C4 through C6 without significant residual central canal stenosis. 3. No abnormal epidural fluid collections. No abnormal enhancing lesions within the canal postcontrast. Assessment and Plan - Plan Sepsis Tachycardia, leukocytosis, cellulitis, lactic acid 1.9 Continue IV vancomycin and Zosyn MRI of the neck showed only chronic changes Blood cultures negative 48 hours Appreciate infectious disease consult Polyarthritis Improving following antibiotics and Solu-Medrol RPR, antistreptolysin, rheumatoid factor, uric acid negative CHRIS pending, GC chlamydia pending Bilateral lower extremity Doppler was negative for DVT Consider Antonia's syndrome secondary to recent diarrhea Repeat Solu-Medrol dose Hyponatremia Resolved DVT Prophylaxis Lovenox
[2018-05-26] MEDS ORDERED: MethylPREDNISolone Sod Succinate Inj 125 MG/2 ML Vial IV.PUSH ONE (18:00)
[2018-05-27 03:57] LABS: Bilirubin,Urine Negative (Negative); Clarity,Urine Clear (Clear); Color,Urine Straw (Yellw/Straw); Glucose,Urine (UA) Negative (Negative); Leukocyte Esterase,Urine Negative (Negative); Mucus,Urine Few /lpf (Occasional); Nitrite,Urine Negative (Negative); Specific Gravity,Urine 1.013 (1.002-1.035); Squamous Epithelial Cell,Urine <1 /hpf (0-5)
[2018-05-27] MEDS: Piperacil/Tazo 4.5 GM Premix 4.5 GM/100 ML BAG IV.SIG SCH ×2 (07:41→12:14)
[2018-05-27] MEDS: Senna/Docusate Sodium 8.6/50 MG Tablet PO SCH ×2 (07:59→20:29)
[2018-05-27] MEDS: Vancomycin Inj 1,250 MG in Sodium Chlor 0.9% Inj 250 ML IV.SIG SCH (08:31)
[2018-05-27 08:43] LABS: Hematocrit 44.6 % (39.0-51.0); Hemoglobin 15.2 gm/dL (13.0-17.0); Mean Corpuscular HGB Conc 34.2 % (32.0-36.0); Mean Corpuscular Hemoglobin 33.4 pg (27.0-34.0); Mean Corpuscular Volume 97.5 fL (80.0-100.0); Mean Platelet Volume 9.5 fL (7.0-11.0); Platelet Count 268 th/mm3 (150-450); Red Blood Count 4.57 mil/mm3 (4.50-5.90); Red Cell Distribution Width 13.5 % (11.6-17.2); White Blood Count 10.1 th/mm3 (4.0-11.0)
[2018-05-27 09:16] LABS: Calcium 9.1 mg/dL (8.5-10.1); Carbon Dioxide 25.1 meq/L (21.0-32.0); Potassium 3.6 meq/L (3.5-5.1)
--- NOTE | 2018-05-27 15:45 | P.PN ---
Subjective Interval history: Patient states he had some mild recurrence of bilateral ankle swelling, neck pain, right hand swelling. He has no other symptoms and remains afebrile. Physical Exam Vital signs: Vital Signs 05/26/18 16:00 05/26/18 20:00 05/26/18 21:13 Temperature 97.6 F 97.5 F L Pulse Rate 89 72 68 Respiratory Rate 18 18 Blood Pressure 140/88 132/77 Pulse Oximetry 95 95 05/27/18 00:00 05/27/18 04:00 05/27/18 08:00 Temperature 97.4 F L 97 F L 97.4 F L Pulse Rate 64 60 82 Respiratory Rate 20 20 20 Blood Pressure 162/100 H 192/96 H 169/109 H Pulse Oximetry 94 L 96 96 05/27/18 10:57 05/27/18 12:00 Temperature 97.7 F Pulse Rate 54 L Respiratory Rate 18 Blood Pressure 159/90 H Pulse Oximetry 96 95 Intake & Output 05/26/18 05/27/18 05/27/18 18:59 06:59 18:59 Intake Total 942.5 / 942.5 702.5 / 702.5 262.5 / 262.5 Output Total 600 / 600 800 / 800 Balance 342.5 / 342.5 -97.5 / -97.5 262.5 / 262.5 Intake: IV 462.5 / 462.5 362.5 / 362.5 262.5 / 262.5 Zosyn 4.5 GM Premix 4.5 gm In 200 / 200 100 / 100 100 ml @ 200 mls/hr IV.SIG Q6H [facility] Rx#:[id number] Vancomycin Inj 1,250 MG In NS 262.5 / 262.5 262.5 / 262.5 262.5 / 262.5 Inj 250 ML @ 250 mls/hr IV.SIG Q12H [facility] Rx#:[id number] Oral 480 / 480 340 / 340 Output: Urine 600 / 600 800 / 800 Other: # Voids 1 # Bowel Movements 2 Narrative: GENERAL: AAOx3, no acute distress SKIN: Warm and dry. No rashes HEAD: Atruamtic, normocephalic. EYES: No scleral icterus. No injection or drainage. ENT: Moist mucous membranes, patent nares, no erythema of oropharynx. NECK: Supple, trachea midline. No JVD or lymphadenopathy. Normal thyroid. CARDIOVASCULAR: Regular rate and rhythm. No murmurs, gallops, or rubs. RESPIRATORY: Breath sounds clear equal bilaterally. No crackles or wheezes. No accessory muscle use. GASTROINTESTINAL: Abdomen soft, non-tender, nondistended, normal active bowel sounds MUSCULOSKELETAL: Swollen bilateral ankles and right hand are about 80% improved NEURO: CN II-XII grossly intact, no focal deficits, no slurring of speech, no photophobia Results - Labs CBC & Chem 7: 05/27/18 08:01 05/27/18 08:01 Laboratory Results - last 24 hr 05/25/18 05/27/18 05/27/18 21:23 03:24 03:24 WBC RBC Hgb Hct MCV MCH MCHC RDW Plt Count MPV Sodium Potassium Chloride Carbon Dioxide Anion Gap BUN Creatinine Estimated GFR Random Glucose Calcium Urine Color Straw Urine Clarity Clear Urine pH 6.0 Ur Specific [place] 1.013 Urine Protein Negative Urine Glucose (UA) Negative Urine Ketones Negative Urine Occult Blood Negative Urine Nitrate Negative Urine Bilirubin Negative Urine Urobilinogen Less than 2 Ur Leukocyte Esterase Negative Urine RBC Less than 1 Urine WBC 1 Ur Squamous Epith Cells <1 Urine Mucus Few H Micro UA Comment Culture not ind Urine Culture Comments Culture not ind CHRIS Screen Neg Chlam trachomat DNA PCR Not detected N.gonorrhoeae DNA (PCR) Not detected 05/27/18 05/27/18 08:01 08:01 WBC 10.1 RBC 4.57 Hgb 15.2 Hct 44.6 MCV 97.5 MCH 33.4 MCHC 34.2 RDW 13.5 Plt Count 268 MPV 9.5 Sodium 141 Potassium 3.6 Chloride 108 H Carbon Dioxide 25.1 Anion Gap 8 BUN 18 Creatinine 0.89 Estimated GFR 83 L Random Glucose 119 H Calcium 9.1 Urine Color Urine Clarity Urine pH Ur Specific [place] Urine Protein Urine Glucose (UA) Urine Ketones Urine Occult Blood Urine Nitrate Urine Bilirubin Urine Urobilinogen Ur Leukocyte Esterase Urine RBC Urine WBC Ur Squamous Epith Cells Urine Mucus Micro UA Comment Urine Culture Comments CHRIS Screen Chlam trachomat DNA PCR N.gonorrhoeae DNA (PCR) Microbiology 05/24/18 17:25 Blood - Peripheral Aerobic Blood Culture - Preliminary No growth in 3 days 05/24/18 17:25 Blood - Peripheral Anaerobic Blood Culture - Preliminary No growth in 3 days 05/24/18 17:32 Blood - Peripheral Aerobic Blood Culture - Preliminary No growth in 3 days 05/24/18 17:32 Blood - Peripheral Anaerobic Blood Culture - Preliminary No growth in 3 days Assessment and Plan - Plan Sepsis Tachycardia, leukocytosis, cellulitis, lactic acid 1.9 on admission MRI of the neck showed only chronic changes Blood cultures negative 3 days Antibiotics changed to p.o. Levaquin, patient lost IV site and does not want IV antibiotics at this time Appreciate infectious disease consult Polyarthritis Improving following antibiotics and Solu-Medrol C-reactive protein is elevated but trending downward RPR, antistreptolysin, rheumatoid factor, CHRIS, GC chlamydia, uric acid... all negative Bilateral lower extremity Doppler was negative for DVT Consider Antonia's syndrome secondary to recent diarrhea Start on p.o. prednisone for coverage of rheumatologic causes DVT Prophylaxis Lovenox
--- NOTE | 2018-05-27 15:49 | P.DCO ---
- Physical Therapy Order: Evaluate and treat - Certification I have seen patient Lázaro Montoya on 05/27/18. My clinical findings support the need for the requested home health care services because: Limited mobility due to disease progression, Deconditioned with increased weakness, High risk of falls I certify that my clinical findings support that this patient is homebound because: Unsteady gait/balance, Unsafe to leave home unassisted, Unable to use public transportation
[2018-05-27] MEDS: Enoxaparin Inj 40 MG/0.4 ML Syringe SQ SCH (16:42)
[2018-05-27] MEDS: Morphine Inj 4 MG/ML Vial IV.PUSH PRN (20:28)
[2018-05-28] MEDS: levoFLOXacin 750 MG Tablet PO SCH (08:06)
[2018-05-28] MEDS: Senna/Docusate Sodium 8.6/50 MG Tablet PO SCH ×2 (08:06→21:06)
--- NOTE | 2018-05-28 11:37 | P.PNIM ---
Subjective Interval history: Minimally improved compared to yesterday. Ambulation is improving. Potential polymyalgia rheumatica does not match an ESR of 18. Etiology could be viral. Physical Exam Vital signs: Vital Signs 05/27/18 12:00 05/27/18 16:00 05/27/18 20:00 Temperature 97.7 F 97.8 F 97.8 F Pulse Rate 54 L 68 60 Respiratory Rate 18 18 18 Blood Pressure 159/90 H 158/73 H 172/92 H Pulse Oximetry 95 96 96 05/27/18 21:35 05/28/18 00:00 05/28/18 04:00 Temperature 98.1 F Pulse Rate 49 L 47 L Respiratory Rate 20 18 Blood Pressure 158/96 H Pulse Oximetry 97 05/28/18 04:07 05/28/18 08:00 Temperature 97.2 F L 97.3 F L Pulse Rate 50 L 51 L Respiratory Rate 20 18 Blood Pressure 152/90 H 182/93 H Pulse Oximetry 98 100 Intake & Output 05/27/18 05/28/18 05/28/18 18:59 06:59 18:59 Intake Total 842.5 / 842.5 410 / 410 Output Total 2425 / 2425 Balance 842.5 / 842.5 -2014 / Weight 98.7 kg Intake: IV 362.5 / 362.5 Zosyn 4.5 GM Premix 4.5 gm In 100 / 100 100 ml @ 200 mls/hr IV.SIG Q6H GOLDEN Rx#:[id number] Vancomycin Inj 1,250 MG In NS 262.5 / 262.5 Inj 250 ML @ 250 mls/hr IV.SIG Q12H GOLDEN Rx#:[id number] Oral 480 / 480 410 / 410 Output: Urine 2425 / 2425 Other: # Voids 800 Date of Last Bowel Movement 05/26/18 Narrative: GENERAL: NAD, A&Ox3 HEAD: Normocephalic. NECK: Supple, trachea midline. No lymphadenopathy. EYES: No scleral icterus. No injection or drainage. CARDIOVASCULAR: Regular rate and rhythm without murmurs, gallops, or rubs. RESPIRATORY: Breath sounds equal bilaterally. No accessory muscle use. GASTROINTESTINAL: Abdomen soft, non-tender, nondistended. MUSCULOSKELETAL: No cyanosis, or edema. Tenderness of joints. SKIN: Warm and dry. NEURO: No focal neurological deficits. Results - Labs CBC & Chem 7: 05/27/18 08:01 05/27/18 08:01 Microbiology 05/24/18 17:25 Blood - Peripheral Aerobic Blood Culture - Preliminary No growth in 4 days 05/24/18 17:25 Blood - Peripheral Anaerobic Blood Culture - Preliminary No growth in 4 days 05/24/18 17:32 Blood - Peripheral Aerobic Blood Culture - Preliminary No growth in 4 days 05/24/18 17:32 Blood - Peripheral Anaerobic Blood Culture - Preliminary No growth in 4 days Assessment and Plan - Plan 73-year-old male admitted secondary to cellulitis with evidence of sepsis, and additional possible viral versus polymyalgia rheumatica manifestation Sepsis Sepsis resolved Cellulitis ID following Antibiotics changed to p.o. Levaquin Polyarthritis Slow improvements RPR, antistreptolysin, rheumatoid factor, CHRIS, GC chlamydia, uric acid... all negative Continue p.o. prednisone for coverage of rheumatologic causes DVT Prophylaxis Lovenox Discharge planning Plan for discharge in a.m. tomorrow
[2018-05-28] MEDS: Enoxaparin Inj 40 MG/0.4 ML Syringe SQ SCH (18:34)
[2018-05-28] MEDS ORDERED: Pharmacy Ordered Lab Info OTHER SCH (19:45)
[2018-05-29] MEDS: Senna/Docusate Sodium 8.6/50 MG Tablet PO SCH (08:05)
[2018-05-29] MEDS: levoFLOXacin 750 MG Tablet PO SCH (08:05)
[2018-05-29 09:33] LABS: Glomerular Filtration Rate Greater Than 89 mL/min (>89)
[2018-05-29] MEDS ORDERED: amLODIPine 5 MG Tablet PO ONE (11:16)
--- NOTE | 2018-05-29 11:18 | P.DS ---
Date of admission: 05/24/18 19:05 Primary care physician: UNKNOWN Brief History from admission: 73-year-old male with history of hypertension, CVA who presents with 3 day history of generalized weakness, right ankle swelling, left wrist swelling associated with constant dull nonradiating pain. He also reports posterior neck pain, axial spine pain described as constant, dull. Worse with movement. Denies any headache. He does report decreased appetite over the past several days. Hypertension CVA Carotid endarterectomy Bilateral knee replacement Left hip replacement Mother with hypertension. Father and old age Patient has been smoking 3 packs per day past 7 months. Patient reports drinking 1 ounce of vodka per day. No illicit drugs. DS: Medications - Discharge Medications Prescriptions: amlodipine [Norvasc] 10 mg PO DAILY #30 tab hydrocodone-acetaminophen 1 tab PO Q4-6H PRN 3 Days #18 tab PRN Reason: Pain Scale 6 To 10 levofloxacin 750 mg PO DAILY #2 tab methylprednisolone [Medrol (Jordy)] 0 tab PO PER PKG DIR #1 pack DS: Summary Hospital Course: Mr. Montoya is a 73-year-old male. He was admitted secondary to cellulitis with signs of sepsis. She also had arthralgias and myalgias. His cellulitis improved quickly. Suspicion for autoimmune condition such as polymyalgia rheumatica versus viral etiology is present. He has some mild improvements in his arthralgias and myalgias. Cellulitis is completely resolved. Sepsis has resolved. At this point he is medically stable and cleared for discharge home. He will be discharged on a completion course of his antibiotic and a steroid taper. Medically stable and cleared for discharge home today. - Time Spent with Patient Total time spent providing and/or coordinating discharge services: Less than 30 minutes - Quality: VTE Deep Vein Thrombosis/Pulmonary Embolism Present on Admission: Yes Exam Vital signs: Vital Signs 05/28/18 12:00 05/28/18 16:00 05/28/18 20:00 Temperature 97.3 F L 97.4 F L 98.1 F Pulse Rate 53 L 60 62 Respiratory Rate 18 16 18 Blood Pressure 178/93 H 161/83 H 161/87 H Pulse Oximetry 97 95 62 L 05/29/18 00:00 05/29/18 04:00 05/29/18 08:00 Temperature 97.3 F L 97.2 F L 97.7 F Pulse Rate 58 L 61 59 L Respiratory Rate 17 18 18 Blood Pressure 111/59 L 174/88 H 178/91 H Pulse Oximetry 97 97 95 Intake & Output 05/28/18 05/29/18 05/29/18 18:59 06:59 18:59 Intake Total 440 / 440 Output Total 1700 / 1700 Balance 440 / 440 -1700 / -1700 Weight 96.8 kg Intake: Oral 440 / 440 Output: Urine 1700 / 1700 Other: # Voids 800 2 Date of Last Bowel Movement 05/26/18 05/26/18 # Bowel Movements 1 Results Procedures completed during hospitalization: none Labs on day of discharge: Labs from last 24 hours 05/29/18 08:50 Creatinine 0.73 Estimated GFR Greater than 89 - Impressions ITS Impressions Foot X-Ray 05/24/18 00:00 CONCLUSION: 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 No acute bony abnormality. Soft tissue swelling present. Chest X-Ray 05/24/18 17:15 CONCLUSION: Negative examination. Venous Doppler Study 05/24/18 18:38 CONCLUSION: 1. The study is negative for bilateral lower extremity deep venous thrombosis. Cervical Spine MRI 05/25/18 00:00 CONCLUSION: 1. At C3-4 there is a broad-based disc osteophyte complex with moderate AP canal stenosis and mild cord compression. No cord edema. 2. Postoperative fusion from C4 through C6 without significant residual central canal stenosis. 3. No abnormal epidural fluid collections. No abnormal enhancing lesions within the canal postcontrast. Discharge Plan - Discharge Disposition Patient Disposition: Discharge Home - Discharge Condition Condition: Stable - Discharge Order Discharge Orders: Discharge Order (Routine); Ordered 05/29/18 Ordered By: Sung Curtis - Discharge Details Anticipated Discharge Date: 05/29/18 - Physicians Team Primary Care Provider: UNKNOWN, Attending Provider: Sung Curtis Other Providers: Radha Up MD
[2018-05-31 17:52] VITALS: PULSE 59
[2018-05-31 17:54] VITALS: BP 178/91; TEMP 97.7
[2018-05-31 18:07] VITALS: RESP 18; O2SAT 95
== END 2018-05-29 12:55 | disposition home or self-care (01) ==
LOC: NEPC 16:56 → NEDA 19:05 → N04 20:05
PROVIDERS: ADMIT Hospitalist; ATTEND Hospitalist